=== PATIENT | male | born 1945 | race Caucasian/White ===

== ENCOUNTER → 2023-12-16 10:18 | Outpatient (REF) | payer MEDICARE, OTHER, SELFPAY ==
[2023-12-16 14:27] LABS: ALT (SGPT) < 10 U/L (0-50); AST (SGOT) 19 U/L (17-59); Albumin 3.8 g/dl (3.5-5.0); Alkaline Phosphatase 101 U/L (38-126); Blood Urea Nitrogen 16 mg/dl (9-20); Calcium 9.2 mg/dl (8.4-10.2); Carbon Dioxide 32 mmol/L (22-30); Chloride 101 mmol/L (98-107); Glucose 108 mg/dl (70-99); Potassium 4.2 mmol/L (3.5-5.1); Sodium 135 mmol/L (135-145); Total Bilirubin 0.8 mg/dl (0.2-1.3); Total Protein 6.6 g/dl (6.3-8.2); eGFR > 60.00
[2023-12-16 15:37] LABS: PSA, Total - Diagnostic < 0.06 ng/ml (0.0-4.0)
== END ==
LOC: HWLAB 10:18
PROVIDERS: ATTENDING PHYSICIAN Nurse Practitioner Adult Health; FAMILY PHYSICIAN Physician Assistant Medical
DX: C61 Malignant neoplasm of prostate (principal); C77.2 Secondary and unspecified malignant neoplasm of intra-abdominal lymph nodes
CPT/HCPCS: 36415; 80053; 84153

== ENCOUNTER 2024-01-19 13:18 | Emergency (ER) | payer MEDICARE, OTHER, SELFPAY ==
[2024-01-19 13:22] VITALS: BP 166/83
[2024-01-19 13:54] LABS: % Basophils 0.3 % (0-2); % Eosinophils 2.5 % (0-6); % Immature Granulocytes 0.2 % (0-0.5); % Lymphocytes 16.8 % (20.5-51.1); % Monocytes 6.7 % (1.7-9.3); % Neutrophils 73.5 % (42.2-75.2); Absolute Eosinophils 0.2 10^3/uL (0-0.7); Absolute Lymphocytes 1.1 10^3/uL (1.2-3.4); Absolute Monocytes 0.4 10^3/uL (0.1-0.6); Absolute Neutrophils 4.7 10^3/uL (1.4-6.5); Hematocrit 45.4 % (39.0-52.0); Hemoglobin 14.8 g/dL (13.0-18.0); Mean Corp Hgb Conc. 32.6 g/dL (33.0-37.0); Mean Corpuscular Volume 92.1 fL (80.0-94.0); Mean Platelet Volume 11.1 fL (7.4-10.4); Nucleated Red Blood Cells % 0 % (-); Platelet Count 181 10^3/uL (130-400); Red Blood Cell Count 4.93 10^6/uL (4.70-6.10); Red Cell Dist. Width 13.8 % (11.5-14.5); White Blood Cell Count 6.4 10^3/uL (4.8-10.8)
[2024-01-19 14:05] LABS: ALT (SGPT) 11 U/L (0-50); AST (SGOT) 20 U/L (17-59); Albumin 4.1 g/dl (3.5-5.0); Alkaline Phosphatase 99 U/L (38-126); Blood Urea Nitrogen 20 mg/dl (9-20); Calcium 9.3 mg/dl (8.4-10.2); Carbon Dioxide 30 mmol/L (22-30); Chloride 103 mmol/L (98-107); Glucose 154 mg/dl (70-99); Potassium 4.6 mmol/L (3.5-5.1); Sodium 139 mmol/L (135-145); Total Bilirubin 0.6 mg/dl (0.2-1.3); eGFR > 60.00
[2024-01-19 14:16] LABS: Troponin I 0.019 ng/ml
--- NOTE | 2024-01-19 14:39 | ED.GENMED ---
History of Present Illness
General
Chief Complaint: Fall
Source: patient and spouse
Exam Limitations: none
Time Seen by Provider: 01/19/24 14:25
Travel History
Have you had any contact with someone who has COVID-19?: No
Do you have any symptoms of coronavirus? Fever > 100 degrees, chills, cough, shortness of breath, sore throat, loss of taste or smell, muscle aches, or headache?: No
History of Present Illness
History of Present Illness:
See MDM
Past History
Past History
ED Past Medical History: Arrthythmia (Atrial fibrillation), Cancer (Prostate), CVA (Hemorrhagic), HTN, Hypercholesterolemia and Other (Chronic back pain/lumbar radiculopathy, polyneuropathy, gait disorder)
ED Past Surgical History: Other (Ventricular shunt, cataract, prostate, pacemaker and AICD)
Patient has exhibited threatening behavior?: No
PSI?: No
Social History
Tobacco: Non-smoker
Alcohol: None
Personal:
Living: with family
Employment: Employed
Family History
Family History: Other (Noncontributory)
Phy Exam
Physical Exam
Physical Exam:
See MDM
Course
Orders/Labs/Results
Orders:
Orders
01/19/24 13:25
Electrocardiogram (*1) Urgent
Reason for Study: Chest Pain
EKG- Treatment ONCE
01/19/24 13:26
CR Ribs-left 3 Vw W/pa Chest Urgent
Comment:
Reason For Exam: pain after fall
01/19/24 13:41
Complete Blood Count/With Diff Urgent
Comprehensive Metabolic Panel Urgent
Troponin I Urgent
01/19/24 14:34
Cephalexin Monohydrate [Keflex] 250 mg PO NOW STA
Ketorolac [Toradol] 30 mg IM NOW STA
01/19/24 15:48
Tramadol HCl [Ultram] 25 mg PO ONCE ONE
Abnormal Lab Results
01/19/24
13:41
MCHC 32.6 L g/dL
(33.0-37.0)
MPV 11.1 H fL
(7.4-10.4)
Absolute Lymphs (auto) 1.1 L 10^3/uL
(1.2-3.4)
Lymphocytes % 16.8 L %
(20.5-51.1)
Glucose 154 H mg/dl
(70-99)
01/19/24 13:41
01/19/24 13:41
Vital Signs
Initial and Last Documented VS:
Initial Vital Signs
Temp Pulse Resp BP Pulse Ox
98.4 F 98 18 166/83 97
01/19/24 13:22 01/19/24 13:22 01/19/24 13:22 01/19/24 13:22 01/19/24 13:22
Last Documented Vital Signs
Temp Pulse Resp BP Pulse Ox
98.4 F 93 13 166/83 95
01/19/24 13:22 01/19/24 15:00 01/19/24 15:00 01/19/24 13:22 01/19/24 14:45
MDM/Problems Addressed
Differential Diagnosis Includes:
HPI and MDM Narrative:
78-year-old male presenting with left lateral rib pain. Patient had a fall a week ago. He states the pain is now getting worse. He used to be on Eliquis that was discontinued when he was found to have intracranial hemorrhage. He has had dizzy
spells over the past several years for which he was diagnosed with vestibular neuritis. Patient states he is not currently feeling dizzy and the pain is improving. He was sent in to rule out rib fracture
On exam, he is well-appearing and nontoxic. We discussed blood work without significant abnormality. Will obtain rib x-rays. Will give dose of Toradol. Patient has NSAIDs listed as an allergy to avoid excessive use given his prior history of
intracranial hemorrhage. He is on a daily aspirin. Will give one-time dose of Toradol
also concerned about possible cellulitis. He scraped his leg on the car door recently.
Physical exam
General: Well appearing and non-toxic
HEENT: protecting airway
Neck: appears supple
CV: No evidence of cyanosis. Normal rate, irregular rhythm
Resp: No accessory muscle use. Lungs clear
Chest: Minor tenderness without erythema or crepitus to left lateral ribs
Abd: Non-distended
Extremities: No deformities
Neuro: alert
Psych: Normal affect
Skin: Skin avulsion to distal left anterior and posterior leg with minor cellulitic changes
Problems Addressed including Acute and Chronic Conditions affecting care:
1. Rib injury
Acuity: acute
Prognosis: stable
Details: will obtain x-ray to rule out fracture
2. Cellulitis
Acuity: acute
Prognosis: stable
Details: Will start keflex
Updates
X-ray consistent with 1 rib fracture. He remains well-appearing nontoxic. Discussed pain control and incentive spirometer. Both and feel comfortable going home
Differential Diagnosis (but not limited to): Rib fracture, rib contusion, cellulitis
Testing considered: CT head but it has been a week since the fall and he denies any headache or dizziness
Drug therapy (if applicable): OTC meds, please see d/c instruction regarding Rx drugs
Amount and/or Complexity of Data Reviewed
Clinical info obtained from: Patient
External data reviewed: N/A
Labs I independently reviewed (but not limited to): White blood cell count normal
Radiology: X-ray independently reviewed: Left lateral rib fracture
Pulse Ox: not hypoxic
EKG independently reviewed: A-fib, normal axis, no STEMI
Home Health Assistant: A-fib
Critical Care: N/A
Risk of Complication:
Social Determinants of health: Good social support
Discussed with other providers: N/A
Escalation of Care includes Admit/Obs: After being observed in the Emergency Department, pt stable for discharge.
Occasional wrong word or 'sound a like' substitutions may have occurred due to the inherent limitations of voice recognition software. Read the chart carefully and recognize, using context, where substitutions have occurred.
*Critical Care Note
Total Time (30-74mins, 75-104mins- exclusive of procedures): Not Applicable
ED Attending Note
-
Portions of this chart may have been created with voice recognition software.� Occasional wrong word or��sound alike� substitutions may have occurred due to the inherent limitations of voice recognition software.
Discharge Plan
Departure
Patient Disposition: Home (Routine Discharge)
Date of Disposition: 01/19/24
Time of Disposition: 15:49
Patient with high blood pressure during this ER visit?: Yes
Discharge Problem:
Fracture of rib, Cellulitis
Instructions: Cellulitis (Skin Infection), Adult ED, Rib Fracture
Prescriptions:
New
cephalexin 250 mg capsule
250 mg PO QID 7 Days Qty: 28 0RF
tramadol 50 mg tablet
25 mg PO BID PRN (Reason: pain) Qty: 10 0RF
No Action
carvedilol 6.25 MG tablet
6.25 mg PO BID
bimatoprost [Lumigan] 5 ML drops
2.5 ml BOTH EYES DAILY
gabapentin 300 MG capsule
300 mg PO DAILY
atorvastatin 40 MG tablet
40 mg PO QPM Qty: 30 0RF
apixaban [Eliquis] 5 MG tablet
5 mg PO BID Qty: 60 0RF
aspirin 81 MG tablet,delayed release (DR/EC)
81 mg PO DAILY Qty: 0 0RF
Rx Instructions:
If after talking to your Filling Hand, and you choose to take Eliquis, please stop taking Aspirin.
methylprednisolone [Medrol (Enrique)] 4 MG tablets,dose pack
4 tab PO . DIRECT Qty: 1 0RF
benzonatate 200 mg capsule
200 mg PO BID PRN (Reason: cough) Qty: 14 0RF
diltiazem HCl [Cardizem CD] 240 MG capsule,extended release 24hr
240 mg PO DAILY
Referrals:
Noy Aquino PA-C [Family Provider] -
Activity Restrictions/Additional Instructions:
Please return for any worsening symptoms.
You may return at any time if you have further concerns.
Please follow up with your doctor at the first available appointment, preferably this week.
Thank you for choosing [facility].
Interventions
Interventions:
*Risk Screen - Suicide Last Done: 01/19/24 13:22
*General Assessment Last Done: 01/19/24 13:22
*Neglect/Abuse Screening Last Done: 01/19/24 13:22
ED- Fall Risk Assessment Last Done: 01/19/24 15:20
*ED COVID-19 Vaccine History Last Done: 01/19/24 13:22
ED-Musculoskeletal Assessment Last Done: 01/19/24 15:20
ED- Neurological Assessment Last Done: 01/19/24 15:20
ED-Skin Assessment Last Done: 01/19/24 15:20
Discharge Date and Time
Print Language: BELIZEAN
[2024-01-19] MEDS: TORADOL 30 MG IM (14:51)
[2024-01-19] MEDS: KEFLEX 250 MG PO (14:51)
[2024-01-19] MEDS: ULTRAM 25 MG PO (16:02)
== END 2024-01-19 16:18 | disposition home or self-care (01) ==
LOC: EMR 13:18
PROVIDERS: EMERGENCY PHYSICIAN Student in an Organized Health Care Education/Training Program; FAMILY PHYSICIAN Physician Assistant Medical
DX: S22.32XA Fracture of one rib, left side, initial encounter for closed fracture (principal); L03.116 Cellulitis of left lower limb; S81.802A Unspecified open wound, left lower leg, initial encounter; W19.XXXA Unspecified fall, initial encounter; I48.91 Unspecified atrial fibrillation; E78.00 Pure hypercholesterolemia, unspecified; M54.16 Radiculopathy, lumbar region; G89.29 Other chronic pain; I10 Essential (primary) hypertension; G62.9 Polyneuropathy, unspecified; Z95.810 Presence of automatic (implantable) cardiac defibrillator; Z98.2 Presence of cerebrospinal fluid drainage device; Z79.82 Long term (current) use of aspirin; Z88.8 Allergy status to other drugs, medicaments and biological substances; Z88.6 Allergy status to analgesic agent; Z91.012 Allergy to eggs
CPT/HCPCS: 99284; 96372; 71101; 80053; 84484; 85025; 93005

== ENCOUNTER 2024-02-20 14:14 | Emergency (ER) | payer MEDICARE, OTHER, SELFPAY ==
[2024-02-20 14:21] VITALS: BP 136/89
[2024-02-20] MEDS: TYLENOL 650 MG PO (15:29)
[2024-02-20] MEDS: LIDOCAINE 4% PATCH 1 PATCH TOPICAL ×2 (15:29→18:20)
--- NOTE | 2024-02-20 15:29 | ED.GENMED ---
History of Present Illness
General
Chief Complaint: Musculo-Skeletal Complaint
Source: patient
Exam Limitations: none
Time Seen by Provider: 02/20/24 15:08
Nursing documentation reviewed up to this point in time: agreed with
History of Present Illness
History of Present Illness:
Patient is a 78-year-old male who presents to the ER complaining of left hip pain. He reports Wednesday he fell and landed on his left hip. He denies hitting his head. Since then he has had discomfort especially with walking is getting worse. He
is on aspirin but denies any other blood thinners presently. He Does lives at home with his .
He arrived via EMS.
Past History
Past History
ED Past Medical History: Arrthythmia (Atrial fibrillation), Cancer (Prostate), CVA (Hemorrhagic), HTN, Hypercholesterolemia and Other (Chronic back pain/lumbar radiculopathy, polyneuropathy, gait disorder)
ED Past Surgical History: Other (Ventricular shunt, cataract, prostate, pacemaker and AICD)
Patient has exhibited threatening behavior?: No
PSI?: No
Social History
Tobacco: Non-smoker
Alcohol: None
Personal:
Living: with family
Employment: Employed
Family History
Family History: Other (Noncontributory)
Review of Systems
Review of Systems
Allergies reviewed?: Yes
All Other Systems: ROS reviewed and negative except as documented in HPI and ROS
Constitutional: Reports no symptoms
Respiratory: Reports no symptoms
Cardiac: Reports no symptoms
ABD/GI: Reports no symptoms
: Reports no symptoms
Musculoskeletal: Reports other (left hip pain )
Skin: Reports no symptoms
Psychiatric: Reports no symptoms
Phy Exam
General Physical Exam
General Presentation: no apparent distress
General age: appears stated age
General Skin: warm and dry
General Habitus: elderly
General Mental: alert
General Hydration: appears well hydrated
Neurological Exam
Neurological Exam: alert and oriented x3
Musculoskeletal Exam
Musculoskeletal Exam: other (Patient with bilateral strong pulses to lower extremities patient with bruising to left lateral hip tender over this area , no discomfort with range of motion but mostly tender to the region of the left lateral thigh
over the area of ecchymosis, + bruising to left elbow full rom non tender )
Skin Exam
Skin Exam: normal color, warm/dry and other (no ecchymosis/abrasions to head )
Psychiatric Exam
Psychiatric Exam: normal mood/affect
Course
Orders/Labs/Results
Orders:
Orders
02/20/24 14:28
Hip, Left 2-3 Views [CR Hip - LT w/wo Pel 2-3 Vw*] Urgent
Comment:
Reason For Exam: fall
Include a pelvis x-ray?: Yes
02/20/24 15:19
CT Lower Ext W/o Iv Cont Lt Urgent
Comment:
Reason For Exam: trauma
Acetaminophen [Tylenol] 650 mg PO NOW STA
Lidocaine [Lidocaine 4% Patch] 1 patch TOPICAL NOW STA
02/20/24 18:13
Lidocaine [Lidocaine 4% Patch] 1 patch TOPICAL NOW STA
Vital Signs
Initial and Last Documented VS:
Initial Vital Signs
Temp Pulse Resp BP Pulse Ox
100 F 82 16 136/89 98
02/20/24 14:21 02/20/24 14:21 02/20/24 14:21 02/20/24 14:21 02/20/24 14:21
Last Documented Vital Signs
Temp Pulse Resp BP Pulse Ox
100 F 79 17 129/76 99
02/20/24 14:21 02/20/24 18:25 02/20/24 18:25 02/20/24 18:25 02/20/24 18:25
MDM/Problems Addressed
MDM/Problems Addressed:
Symptoms are consistent with contusion. Patient had a both hip x-ray and CAT scan of the lower extremity which was negative for fracture. On exam patient does have ecchymosis to left lateral hip and is very tender over this region there is no
obvious large swelling. He is able to bear weight has good range of motion and appears in no acute distress. He denies any recent fever chills temperature noted here however no evidence of infection on exam full range of motion to hip and no area
of redness.
Patient feels comfortable sitting up he was able to walk with assistance. He does have walker at home that he uses as well as a rollator. He felt comfortable going home. He does have prescription for tramadol to take at home but was given a
lidocaine patch here in the ER and reports that this has significantly helped. Discussed close outpatient follow-up. In addition there is a noted hernia on CAT scan however there is no obvious fullness to the area patient has no complaints of pain
and was not aware of hernia. I did however review that he may see a surgeon if needed and was given information on this.
*Critical Care Note
Total Time (30-74mins, 75-104mins- exclusive of procedures): Not Applicable
ED Attending Note
-
Portions of this chart may have been created with voice recognition software.� Occasional wrong word or��sound alike� substitutions may have occurred due to the inherent limitations of voice recognition software.
Discharge Plan
Departure
Patient Disposition: Home (Routine Discharge)
Date of Disposition: 02/20/24
Time of Disposition: 18:15
Patient with high blood pressure during this ER visit?: Yes
Condition: Fair
Covid-19: Not Applicable
Discharge Problem:
Contusion
Instructions: Contusion (DC)
Prescriptions:
New
lidocaine 5 % adhesive patch,medicated
1 patch topical DAILY Qty: 15 0RF
Rx Instructions:
remove after 12 hrs
No Action
carvedilol 6.25 MG tablet
6.25 mg PO BID
bimatoprost [Lumigan] 5 ML drops
2.5 ml BOTH EYES DAILY
gabapentin 300 MG capsule
300 mg PO DAILY
atorvastatin 40 MG tablet
40 mg PO QPM Qty: 30 0RF
apixaban [Eliquis] 5 MG tablet
5 mg PO BID Qty: 60 0RF
aspirin 81 MG tablet,delayed release (DR/EC)
81 mg PO DAILY Qty: 0 0RF
Rx Instructions:
If after talking to your Assembly Leader, and you choose to take Eliquis, please stop taking Aspirin.
methylprednisolone [Medrol (Enrique)] 4 MG tablets,dose pack
4 tab PO . DIRECT Qty: 1 0RF
benzonatate 200 mg capsule
200 mg PO BID PRN (Reason: cough) Qty: 14 0RF
cephalexin 250 mg capsule
250 mg PO QID 7 Days Qty: 28 0RF
tramadol 50 mg tablet
25 mg PO BID PRN (Reason: pain) Qty: 10 0RF
diltiazem HCl [Cardizem CD] 240 MG capsule,extended release 24hr
240 mg PO DAILY
Referrals:
Domo De Leon MD [Active] -
Noy Aquino PA-C [Family Provider] -
Activity Restrictions/Additional Instructions:
As discussed Tylenol for discomfort also you may apply lidocaine patches to affected area follow-up with your family doctor the next several days return if any worsening of symptoms. In addition on CAT scan there is a visualized left inguinal
hernia follow-up with surgery as discussed return if any worsening of symptoms including abdominal pain, pain in groin.
Interventions
Interventions:
*Risk Screen - Suicide Last Done: 02/20/24 14:21
*General Assessment Last Done: 02/20/24 14:21
*Neglect/Abuse Screening Last Done: 02/20/24 14:21
ED- Fall Risk Assessment Last Done: 02/20/24 15:23
*Nursing Disposition Last Done: 02/20/24 18:26
ED-Musculoskeletal Assessment Last Done: 02/20/24 15:20
Discharge Date and Time
Discharge Date/Time: 02/20/24 18:26
Print Language: GEORGIAN
[2024-02-20 18:25] VITALS: BP 129/76
== END 2024-02-20 18:26 | disposition home or self-care (01) ==
LOC: EMR 14:14
PROVIDERS: EMERGENCY PHYSICIAN Emergency Medicine; FAMILY PHYSICIAN Physician Assistant Medical
DX: S70.02XA Contusion of left hip, initial encounter (principal); S70.12XA Contusion of left thigh, initial encounter; S50.02XA Contusion of left elbow, initial encounter; I10 Essential (primary) hypertension; W19.XXXA Unspecified fall, initial encounter; Z79.82 Long term (current) use of aspirin
CPT/HCPCS: 99284; 73502; 73700

== ENCOUNTER → 2024-03-20 12:23 | Outpatient (REF) | payer MEDICARE, OTHER, SELFPAY ==
[2024-03-20 14:30] LABS: % Basophils 0.2 % (0-2); % Eosinophils 3.6 % (0-6); % Immature Granulocytes 0.2 % (0-0.5); % Lymphocytes 19.9 % (20.5-51.1); % Monocytes 8.6 % (1.7-9.3); % Neutrophils 67.5 % (42.2-75.2); Absolute Eosinophils 0.2 10^3/uL (0-0.7); Absolute Monocytes 0.5 10^3/uL (0.1-0.6); Absolute Neutrophils 3.5 10^3/uL (1.4-6.5); Hematocrit 44.1 % (39.0-52.0); Hemoglobin 14.8 g/dL (13.0-18.0); Mean Corp Hgb Conc. 33.6 g/dL (33.0-37.0); Mean Corpuscular Hgb 31.2 pg (27.0-31.0); Mean Platelet Volume 12.2 fL (7.4-10.4); Nucleated Red Blood Cells % 0 % (-); Platelet Count 154 10^3/uL (130-400); Red Blood Cell Count 4.74 10^6/uL (4.70-6.10); White Blood Cell Count 5.2 10^3/uL (4.8-10.8)
[2024-03-20 15:13] LABS: ALT (SGPT) < 10 U/L (0-50); AST (SGOT) 24 U/L (17-59); Albumin 4.1 g/dl (3.5-5.0); Alkaline Phosphatase 90 U/L (38-126); Blood Urea Nitrogen 22 mg/dl (9-20); Calcium 9.5 mg/dl (8.4-10.2); Carbon Dioxide 24 mmol/L (22-30); Chloride 105 mmol/L (98-107); Glucose 95 mg/dl (70-99); Potassium 5.1 mmol/L (3.5-5.1); Sodium 136 mmol/L (135-145); Total Bilirubin 0.7 mg/dl (0.2-1.3); Total Protein 6.8 g/dl (6.3-8.2); eGFR > 60.00
[2024-03-20 17:29] LABS: PSA, Total - Diagnostic < 0.06 ng/ml (0.0-4.0)
== END ==
LOC: REG 12:23
PROVIDERS: ATTENDING PHYSICIAN Nurse Practitioner Adult Health; FAMILY PHYSICIAN Physician Assistant Medical
DX: C61 Malignant neoplasm of prostate (principal)
CPT/HCPCS: 36415; 80053; 84153; 85025

== ENCOUNTER → 2024-05-23 13:21 | Outpatient (REF) | payer MEDICARE, OTHER, SELFPAY ==
[2024-05-23 14:25] LABS: % Basophils 0.5 % (0-2); % Eosinophils 4.8 % (0-6); % Immature Granulocytes 0.2 % (0-0.5); % Lymphocytes 23.5 % (20.5-51.1); % Monocytes 9.1 % (1.7-9.3); % Neutrophils 61.9 % (42.2-75.2); Absolute Eosinophils 0.2 10^3/uL (0-0.7); Absolute Monocytes 0.4 10^3/uL (0.1-0.6); Absolute Neutrophils 2.7 10^3/uL (1.4-6.5); Hematocrit 43.2 % (39.0-52.0); Hemoglobin 14.3 g/dL (13.0-18.0); Mean Corp Hgb Conc. 33.1 g/dL (33.0-37.0); Mean Corpuscular Hgb 31.6 pg (27.0-31.0); Mean Corpuscular Volume 95.6 fL (80.0-94.0); Mean Platelet Volume 11.3 fL (7.4-10.4); Nucleated Red Blood Cells % 0 % (-); Platelet Count 182 10^3/uL (130-400); Red Blood Cell Count 4.52 10^6/uL (4.70-6.10); Red Cell Dist. Width 13.2 % (11.5-14.5); White Blood Cell Count 4.4 10^3/uL (4.8-10.8)
[2024-05-23 14:39] LABS: ALT (SGPT) 14 U/L (0-50); AST (SGOT) 21 U/L (17-59); Albumin 4.2 g/dl (3.5-5.0); Alkaline Phosphatase 96 U/L (38-126); Blood Urea Nitrogen 16 mg/dl (9-20); Calcium 9.6 mg/dl (8.4-10.2); Carbon Dioxide 30 mmol/L (22-30); Chloride 101 mmol/L (98-107); Glucose 125 mg/dl (70-99); Potassium 4.9 mmol/L (3.5-5.1); Sodium 141 mmol/L (135-145); Total Bilirubin 0.8 mg/dl (0.2-1.3); Total Protein 6.8 g/dl (6.3-8.2); eGFR > 60.00
[2024-05-23 15:09] LABS: PSA, Total - Diagnostic < 0.06 ng/ml (0.0-4.0)
== END ==
LOC: REG 13:21
PROVIDERS: ATTENDING PHYSICIAN Nurse Practitioner Adult Health; FAMILY PHYSICIAN Physician Assistant Medical
DX: C61 Malignant neoplasm of prostate (principal); C77.2 Secondary and unspecified malignant neoplasm of intra-abdominal lymph nodes
CPT/HCPCS: 80053; 84153; 85025

== ENCOUNTER → 2024-09-18 13:44 | Outpatient (REF) | payer MEDICARE, OTHER, SELFPAY ==
[2024-09-18 14:13] LABS: % Basophils 0.5 % (0-2); % Eosinophils 6.2 % (0-6); % Lymphocytes 27.3 % (20.5-51.1); % Monocytes 8.6 % (1.7-9.3); % Neutrophils 57.4 % (42.2-75.2); Absolute Eosinophils 0.2 10^3/uL (0-0.7); Absolute Monocytes 0.3 10^3/uL (0.1-0.6); Absolute Neutrophils 2.1 10^3/uL (1.4-6.5); Hemoglobin 14.1 g/dL (13.0-18.0); Mean Corp Hgb Conc. 33.6 g/dL (33.0-37.0); Mean Corpuscular Hgb 31.6 pg (27.0-31.0); Mean Corpuscular Volume 94.2 fL (80.0-94.0); Mean Platelet Volume 11.7 fL (7.4-10.4); Nucleated Red Blood Cells % 0 % (-); Platelet Count 149 10^3/uL (130-400); Red Blood Cell Count 4.46 10^6/uL (4.70-6.10); White Blood Cell Count 3.7 10^3/uL (4.8-10.8)
[2024-09-18 14:37] LABS: ALT (SGPT) < 10 U/L (0-50); AST (SGOT) 17 U/L (17-59); Albumin 3.8 g/dl (3.5-5.0); Alkaline Phosphatase 88 U/L (38-126); Carbon Dioxide 29 mmol/L (22-30); Glucose 109 mg/dl (70-99); eGFR > 60.00
[2024-09-18 14:48] LABS: Blood Urea Nitrogen 20 mg/dl (9-20); Chloride 101 mmol/L (98-107); Potassium 4.5 mmol/L (3.5-5.1); Sodium 136 mmol/L (135-145); Total Bilirubin 0.8 mg/dl (0.2-1.3); Total Protein 6.5 g/dl (6.3-8.2)
[2024-09-18 15:06] LABS: PSA, Total - Diagnostic < 0.06 ng/ml (0.0-4.0)
== END ==
LOC: REG 13:44
PROVIDERS: ATTENDING PHYSICIAN Internal Medicine
DX: C61 Malignant neoplasm of prostate (principal)
CPT/HCPCS: 36415; 80053; 84153; 85025

== ENCOUNTER 2024-10-07 12:20 | Emergency (ER) | payer MEDICARE, OTHER, SELFPAY ==
[2024-10-07] VITALS (7 sets, daily range): BP systolic 156–174; BP diastolic 84–118; BMI 28.6
[2024-10-07 13:03] LABS: % Basophils 0.5 % (0-2); % Eosinophils 3.2 % (0-6); % Immature Granulocytes 0.2 % (0-0.5); % Lymphocytes 20.5 % (20.5-51.1); % Monocytes 7.3 % (1.7-9.3); % Neutrophils 68.3 % (42.2-75.2); Absolute Eosinophils 0.1 10^3/uL (0-0.7); Absolute Lymphocytes 0.9 10^3/uL (1.2-3.4); Absolute Monocytes 0.3 10^3/uL (0.1-0.6); Hematocrit 43.3 % (39.0-52.0); Hemoglobin 14.5 g/dL (13.0-18.0); Mean Corp Hgb Conc. 33.5 g/dL (33.0-37.0); Mean Corpuscular Hgb 31.7 pg (27.0-31.0); Mean Corpuscular Volume 94.5 fL (80.0-94.0); Nucleated Red Blood Cells % 0 % (-); Platelet Count 148 10^3/uL (130-400); Red Blood Cell Count 4.58 10^6/uL (4.70-6.10); Red Cell Dist. Width 13.3 % (11.5-14.5); White Blood Cell Count 4.4 10^3/uL (4.8-10.8)
[2024-10-07 13:20] LABS: ALT (SGPT) < 10 U/L (0-50); AST (SGOT) 18 U/L (17-59); Albumin 3.7 g/dl (3.5-5.0); Alkaline Phosphatase 93 U/L (38-126); Blood Urea Nitrogen 15 mg/dl (9-20); Calcium 9.1 mg/dl (8.4-10.2); Carbon Dioxide 26 mmol/L (22-30); Chloride 102 mmol/L (98-107); Glucose 136 mg/dl (70-99); Potassium 4.8 mmol/L (3.5-5.1); Sodium 135 mmol/L (135-145); Total Bilirubin 1.2 mg/dl (0.2-1.3); Total Protein 6.4 g/dl (6.3-8.2); eGFR > 60.00
[2024-10-07 13:22] LABS: COVID-19 Antigen Negative (Negative)
--- NOTE | 2024-10-07 15:01 | EDRN ---
Pt states he arrives for shortness of breath, was diagnosed w/ a hernia (says in his R saira) and unable to move his bowels (last BM 3 days ago). Pt unable to go and took miralax and then had diarrhea then took immodium to stop the diarrhea and now
can't go. Pt has sl abd pain in mid abd (12/30). Pt states he has intermittent SOB, all of a sudden gets SOB then it slowly goes away.
--- NOTE | 2024-10-07 15:44 | EDRN ---
Dr. Maldonado in to see pt.
--- NOTE | 2024-10-07 15:54 | ED.GENMED ---
History of Present Illness
General
Chief Complaint: Breathing Problem
Time Seen by Provider: 10/07/24 15:26
History of Present Illness
History of Present Illness:
Patient is a 79-year-old female with history of A-fib on anticoagulation, CHF s/p aicd placement with mildly reduced EF, pacemaker, prior prostate cancer in remission presenting to the emergency department with abdominal pain and difficulty
breathing. Patient states that he has a known hernia. For the past few days has been having worsening abdominal as well as difficulty with his bowel movements. His last normal bowel movement was 2 days ago. He had a 20 pound weight loss in the
past few weeks. He does follow with [facility] and has been having normal PET scans. His cancer is in remission. He also notes that intermittently he has been short of breath. It is sometimes when he is laying flat. Is not
exertional. No chest pain. No palpitations. No URI symptoms. No sick contacts. No triggers. He is not on a water pill for his CHF. Per chart review patient does have a mildly reduced EF. His last echo was in 2022.
Past History
Past History
ED Past Medical History: Arrthythmia (Atrial fibrillation), Cancer (Prostate), CVA (Hemorrhagic), HTN, Hypercholesterolemia and Other (Chronic back pain/lumbar radiculopathy, polyneuropathy, gait disorder)
ED Past Surgical History: Other (Ventricular shunt, cataract, prostate, pacemaker and AICD)
Patient has exhibited threatening behavior?: No
PSI?: No
Social History
Tobacco: Non-smoker
Alcohol: None
Personal:
Living: with family
Employment: Employed
Family History
Family History: Other (Noncontributory)
Phy Exam
Physical Exam
Physical Exam:
GENERAL: in no acute distress
HEENT: normocephalic, extraocular movements intact, moist oral mucosa
NECK: normal inspection
RESPIRATORY: no respiratory distress, clear to auscultation bilaterally, fine crackles at the base
CARDIOVASCULAR: regular rate and rhythm
ABDOMEN/: soft, non-distended, left lower quadrant tenderness to palpation , no rebound or guarding, no palpable hernia
EXTREMITIES: non-tender, mild edema bilaterally
NEUROLOGIC: awake and alert, moves all extremities
SKIN: warm
Scores
Heart Failure Risk
Heart Failure Risk Score: Not Applicable
Course
Orders/Labs/Results
Orders:
Orders
10/07/24 12:37
EKG [Electrocardiogram (*1)] Urgent
Reason for Study: Shortness of Breath
EKG- Treatment ONCE
10/07/24 12:54
CBC/With Diff [Complete Blood Count/With Diff] Urgent
COVID-19 Antigen Urgent
Source: Nasal Swab
Comprehensive Metabolic Panel Urgent
TSH Reflex To Free T4 Urgent
Comment: ADDON
Influenza A+B Rapid Molecular Urgent
MIRIAM Source: Nasal Swab
Specimen Description:
10/07/24 15:26
CT Abd/pelvis W Iv Cont Urgent
Comment:
Reason For Exam: ab pain hernia
10/07/24 15:45
0.9% Sodium Chloride 500 ml [Nss] 500 ml IV BOLUS
10/07/24 15:53
Add On- LAB Urgent
Tests Added?: thyroid with reflex
10/07/24 16:59
Add On- LAB Urgent
Tests Added?: bnp
10/07/24 17:44
NT-proBNP Urgent
Abnormal Lab Results
10/07/24
12:54
WBC 4.4 L 10^3/uL
(4.8-10.8)
RBC 4.58 L 10^6/uL
(4.70-6.10)
MCV 94.5 H fL
(80.0-94.0)
MCH 31.7 H pg
(27.0-31.0)
MPV 12.0 H fL
(7.4-10.4)
Absolute Lymphs (auto) 0.9 L 10^3/uL
(1.2-3.4)
Glucose 136 H mg/dl
(70-99)
10/07/24 12:54
10/07/24 12:54
Vital Signs
Initial and Last Documented VS:
Initial Vital Signs
Temp Pulse Resp BP Pulse Ox
98.2 F 97 16 166/85 98
10/07/24 12:34 10/07/24 12:34 10/07/24 12:34 10/07/24 12:34 10/07/24 12:34
Last Documented Vital Signs
Temp Pulse Resp BP Pulse Ox
98.2 F 105 24 156/118 92
10/07/24 12:34 10/07/24 18:00 10/07/24 18:00 10/07/24 18:00 10/07/24 17:45
MDM/Problems Addressed
Differential Diagnosis Includes:
Patient is a 79-year-old man presenting to the emergency department with abdominal pain difficulty with the bowel movements and occasional shortness of breath. Vitals are notable for heart rate in the 90s to low 100s. Exam does show left lower
quadrant tenderness as well as fine crackles at the bases. Differential is broad but consists of obstruction versus malignancy versus anemia or viral illness. Shortness of breath could be related to pulmonary edema/heart failure exacerbation.
Could be metabolic derangement. Considered PE however the shortness of breath is intermittent and patient is not hypoxic or hypotensive. Will check blood work and obtain CT scan.
*Critical Care Note
Total Time (30-74mins, 75-104mins- exclusive of procedures): Not Applicable
Update Note
Update Note:
CT scan per my interpretation does show bilateral pleural effusion. Patient does have history of CHF with a reduced EF. He is not currently on a diuretic. At bedside patient was normal oxygen upon ambulation and is not overtly short of breath or
tachypneic. We did discuss possible admission for diuresis however patient is adamant about going home as his symptoms are very mild. I did add on BNP however patient was eager to be discharged with the daughter who needs to go to work so
unfortunately we were unable to obtain the BNP as there was not the right tube for in lab. Otherwise the official read did show a stable left inguinal hernia without obstruction as well as constipation. We did discuss bowel regimen. Per the
official read there is also bibasilar opacity. Patient does not have any infectious signs or symptoms with a normal white count and he is afebrile so we will hold off on antibiotics. Will discharge patient with rapid heart failure follow-up.
ED Attending Note
-
Portions of this chart may have been created with voice recognition software.� Occasional wrong word or��sound alike� substitutions may have occurred due to the inherent limitations of voice recognition software.
Discharge Plan
Departure
Patient Disposition: Home (Routine Discharge)
Date of Disposition: 10/07/24
Time of Disposition: 18:03
Patient with high blood pressure during this ER visit?: Yes
Discharge Problem:
Pulmonary edema
Instructions: *CBC Heart Failure Instructions
Prescriptions:
New
furosemide [Lasix] 20 mg tablet
20 mg PO DAILY Qty: 7 0RF
No Action
carvedilol 6.25 MG tablet
6.25 mg PO BID
bimatoprost [Lumigan] 5 ML drops
2.5 ml BOTH EYES DAILY
gabapentin 300 MG capsule
300 mg PO DAILY
atorvastatin 40 MG tablet
40 mg PO QPM Qty: 30 0RF
apixaban [Eliquis] 5 MG tablet
5 mg PO BID Qty: 60 0RF
aspirin 81 MG tablet,delayed release (DR/EC)
81 mg PO DAILY Qty: 0 0RF
Rx Instructions:
If after talking to your Panel Builder, and you choose to take Eliquis, please stop taking Aspirin.
methylprednisolone [Medrol (Enrique)] 4 MG tablets,dose pack
4 tab PO . DIRECT Qty: 1 0RF
benzonatate 200 mg capsule
200 mg PO BID PRN (Reason: cough) Qty: 14 0RF
cephalexin 250 mg capsule
250 mg PO QID 7 Days Qty: 28 0RF
tramadol 50 mg tablet
25 mg PO BID PRN (Reason: pain) Qty: 10 0RF
lidocaine 5 % adhesive patch,medicated
1 patch topical DAILY Qty: 15 0RF
Rx Instructions:
remove after 12 hrs
diltiazem HCl [Cardizem CD] 240 MG capsule,extended release 24hr
240 mg PO DAILY
Referrals:
Noy Aquino PA-C [Family Provider] -
Activity Restrictions/Additional Instructions:
You were seen in the Emergency Department today for shortness of breath as well as constipation. Please start using MiraLAX as discussed. I did prescribe you a short course of Lasix which is a water pill. Your bowling alley mechanic will call you to
schedule an appointment.
We would like for you to follow up with your primary care physician for further evaluation. If you experience fever, worsening of your symptoms, or develop any other new or concerning symptoms, please return to the Emergency Department immediately.
Please see the attached sheet for additional information.
Interventions
Interventions:
*Risk Screen - Suicide Last Done: 10/07/24 12:34
*General Assessment Last Done: 10/07/24 15:05
*Neglect/Abuse Screening Last Done: 10/07/24 12:34
ED- Fall Risk Assessment Last Done: 10/07/24 15:05
*ED COVID-19 Vaccine History Last Done: 10/07/24 15:05
ED- Cardiac Assessment Last Done: 10/07/24 15:12
ED- Pulmonary Assessment Last Done: 10/07/24 15:12
Discharge Date and Time
Print Language: OCCITAN
[2024-10-07] MEDS: NSS 500 IV (16:08)
--- NOTE | 2024-10-07 16:33 | EDRN ---
Pt using urinal at this and then will go to CT scan.
--- NOTE | 2024-10-07 16:34 | EDRN ---
Dr. Gonzalez in room w/ pt and daughter at this time. Unable to get IV access but was able to obtain ordered blood for labs. IV VAT RN was paged at this time for IV access.
--- NOTE | 2024-10-07 17:20 | EDRN ---
Dr. Maldonado stopped IVF infusion as pt showed pleural effusions on his CT scan at this time.
[2024-10-07 17:23] LABS: TSH Reflex To Free T4 3.28 uIU/ml (0.47-4.68)
--- NOTE | 2024-10-07 18:06 | EDRN ---
Dr. Maldonado is discharging pt to follow up w/ cardiology. Pt is calling his daughter to return to give him a ride home.
== END 2024-10-07 18:43 | disposition home or self-care (01) ==
LOC: EMR 12:20
PROVIDERS: Emergency Medicine; EMERGENCY PHYSICIAN Student in an Organized Health Care Education/Training Program; FAMILY PHYSICIAN Physician Assistant Medical
DX: J81.1 Chronic pulmonary edema (principal); I50.20 Unspecified systolic (congestive) heart failure; I11.0 Hypertensive heart disease with heart failure; I48.91 Unspecified atrial fibrillation; Z79.01 Long term (current) use of anticoagulants; Z11.52 Encounter for screening for COVID-19
CPT/HCPCS: 99285; 96360; 74177; 80053; 84443; 85025; 87502; 87811; 93005; Q9967

== ENCOUNTER → 2024-10-16 13:18 | Outpatient (REF) | payer MEDICARE, OTHER, SELFPAY ==
[2024-10-16 16:05] LABS: % Basophils 0.9 % (0-2); % Eosinophils 5.1 % (0-6); % Monocytes 8.9 % (1.7-9.3); % Neutrophils 57.1 % (42.2-75.2); Absolute Eosinophils 0.2 10^3/uL (0-0.7); Absolute Monocytes 0.3 10^3/uL (0.1-0.6); Hematocrit 43.3 % (39.0-52.0); Hemoglobin 14.1 g/dL (13.0-18.0); Mean Corp Hgb Conc. 32.6 g/dL (33.0-37.0); Mean Corpuscular Hgb 31.4 pg (27.0-31.0); Mean Corpuscular Volume 96.4 fL (80.0-94.0); Mean Platelet Volume 12.3 fL (7.4-10.4); Nucleated Red Blood Cells % 0 % (-); Platelet Count 149 10^3/uL (130-400); Red Blood Cell Count 4.49 10^6/uL (4.70-6.10); Red Cell Dist. Width 13.2 % (11.5-14.5); White Blood Cell Count 3.5 10^3/uL (4.8-10.8)
[2024-10-16 16:25] LABS: ALT (SGPT) < 10 U/L (0-50); AST (SGOT) 18 U/L (17-59); Albumin 3.9 g/dl (3.5-5.0); Alkaline Phosphatase 99 U/L (38-126); Blood Urea Nitrogen 14 mg/dl (9-20); Calcium 9.1 mg/dl (8.4-10.2); Carbon Dioxide 26 mmol/L (22-30); Chloride 99 mmol/L (98-107); Glucose 100 mg/dl (70-99); Potassium 4.3 mmol/L (3.5-5.1); Sodium 134 mmol/L (135-145); Total Bilirubin 1.5 mg/dl (0.2-1.3); Total Protein 6.4 g/dl (6.3-8.2); eGFR > 60.00
[2024-10-16 16:54] LABS: PSA, Total - Diagnostic < 0.06 ng/ml (0.0-4.0); TSH Reflex To Free T4 5.95 uIU/ml (0.47-4.68)
[2024-10-16 17:25] LABS: Free T4 1.54 ng/dl (0.78-2.19)
[2024-10-17 09:14] LABS: Glycohemoglobin (HgbA1c) 6.2 % (4.0-5.6)
== END ==
LOC: REG 13:18
PROVIDERS: ATTENDING PHYSICIAN Nurse Practitioner Family; FAMILY PHYSICIAN Nurse Practitioner Adult Health
DX: E11.9 Type 2 diabetes mellitus without complications (principal); I10 Essential (primary) hypertension; I50.22 Chronic systolic (congestive) heart failure; C61 Malignant neoplasm of prostate
CPT/HCPCS: 36415; 80053; 83036; 84153; 84439; 84443; 85025

== ENCOUNTER → 2024-11-13 13:13 | Outpatient (REF) | payer MEDICARE, OTHER, SELFPAY ==
[2024-11-13 14:31] LABS: ALT (SGPT) < 10 U/L (0-50); AST (SGOT) 17 U/L (17-59); Albumin 3.8 g/dl (3.5-5.0); Alkaline Phosphatase 88 U/L (38-126); Blood Urea Nitrogen 17 mg/dl (9-20); Calcium 9.2 mg/dl (8.4-10.2); Carbon Dioxide 26 mmol/L (22-30); Chloride 103 mmol/L (98-107); Glucose 105 mg/dl (70-99); HDL Cholesterol 49 mg/dl; LDL Cholesterol, Calculated 116 mg/dl; Potassium 4.4 mmol/L (3.5-5.1); Sodium 138 mmol/L (135-145); Total Bilirubin 1.1 mg/dl (0.2-1.3); Total Cholesterol 184 mg/dl (50-199); Total Protein 6.2 g/dl (6.3-8.2); Triglyceride 98 mg/dl (10-149); Very Low Density Lipoprotein 19 mg/dl (0-30); eGFR > 60.00
[2024-11-13 14:58] LABS: TSH Reflex To Free T4 4.52 uIU/ml (0.47-4.68)
== END ==
LOC: REG 13:13
PROVIDERS: ATTENDING PHYSICIAN Nurse Practitioner Family
DX: I10 Essential (primary) hypertension (principal); I50.22 Chronic systolic (congestive) heart failure; E11.9 Type 2 diabetes mellitus without complications
CPT/HCPCS: 36415; 80053; 80061; 84443

== ENCOUNTER → 2024-11-21 13:38 | Outpatient (REF) | payer MEDICARE, OTHER, SELFPAY ==
[2024-11-21 15:00] LABS: Albumin 3.9 g/dl (3.5-5.0); Blood Urea Nitrogen 16 mg/dl (9-20); Calcium 9.1 mg/dl (8.4-10.2); Carbon Dioxide 25 mmol/L (22-30); Chloride 104 mmol/L (98-107); Glucose 110 mg/dl (70-99); Phosphorus 3.7 mg/dl (2.5-4.5); Potassium 4.1 mmol/L (3.5-5.1); Sodium 137 mmol/L (135-145); eGFR > 60.00
== END ==
LOC: REG 13:38
PROVIDERS: ATTENDING PHYSICIAN Obstetrics & Gynecology; FAMILY PHYSICIAN Nurse Practitioner Family
DX: I50.22 Chronic systolic (congestive) heart failure (principal); I10 Essential (primary) hypertension
CPT/HCPCS: 36415; 80069

== ENCOUNTER → 2024-11-30 13:31 | Outpatient (REF) | payer MEDICARE, OTHER, SELFPAY ==
[2024-11-30 14:34] LABS: % Basophils 0.6 % (0-2); % Eosinophils 6.3 % (0-6); % Immature Granulocytes 0.3 % (0-0.5); % Lymphocytes 28.5 % (20.5-51.1); % Monocytes 8.5 % (1.7-9.3); % Neutrophils 55.8 % (42.2-75.2); Absolute Eosinophils 0.2 10^3/uL (0-0.7); Absolute Lymphocytes 0.9 10^3/uL (1.2-3.4); Absolute Monocytes 0.3 10^3/uL (0.1-0.6); Absolute Neutrophils 1.8 10^3/uL (1.4-6.5); Hematocrit 41.3 % (39.0-52.0); Hemoglobin 13.8 g/dL (13.0-18.0); Mean Corp Hgb Conc. 33.4 g/dL (33.0-37.0); Mean Corpuscular Hgb 31.9 pg (27.0-31.0); Mean Corpuscular Volume 95.6 fL (80.0-94.0); Mean Platelet Volume 12.1 fL (7.4-10.4); Nucleated Red Blood Cells % 0 % (-); Platelet Count 136 10^3/uL (130-400); Red Blood Cell Count 4.32 10^6/uL (4.70-6.10); Red Cell Dist. Width 13.2 % (11.5-14.5); White Blood Cell Count 3.2 10^3/uL (4.8-10.8)
[2024-11-30 15:07] LABS: ALT (SGPT) < 10 U/L (0-50); AST (SGOT) 18 U/L (17-59); Alkaline Phosphatase 95 U/L (38-126); Blood Urea Nitrogen 19 mg/dl (9-20); Calcium 9.2 mg/dl (8.4-10.2); Carbon Dioxide 27 mmol/L (22-30); Chloride 104 mmol/L (98-107); Glucose 111 mg/dl (70-99); Potassium 4.9 mmol/L (3.5-5.1); Sodium 137 mmol/L (135-145); Total Protein 6.5 g/dl (6.3-8.2); eGFR > 60.00
[2024-11-30 15:39] LABS: PSA, Total - Diagnostic < 0.06 ng/ml (0.0-4.0)
== END ==
LOC: REG 13:31
PROVIDERS: ATTENDING PHYSICIAN Nurse Practitioner Adult Health; FAMILY PHYSICIAN Nurse Practitioner Family
DX: C61 Malignant neoplasm of prostate (principal)
CPT/HCPCS: 36415; 80053; 84153; 85025

== ENCOUNTER → 2025-01-16 13:20 | Outpatient (REF) | payer MEDICARE, OTHER, SELFPAY ==
[2025-01-16 14:58] LABS: Blood Urea Nitrogen 15 mg/dl (9-20); Calcium 9.2 mg/dl (8.4-10.2); Carbon Dioxide 28 mmol/L (22-30); Chloride 103 mmol/L (98-107); Glucose 111 mg/dl (70-99); Potassium 4.6 mmol/L (3.5-5.1); Sodium 137 mmol/L (135-145); eGFR > 60.00
== END ==
LOC: REG 13:20
PROVIDERS: ATTENDING PHYSICIAN Nurse Practitioner; FAMILY PHYSICIAN Nurse Practitioner Family
DX: I50.22 Chronic systolic (congestive) heart failure (principal)
CPT/HCPCS: 36415; 80048

== ENCOUNTER → 2025-02-21 13:51 | Outpatient (REF) | payer MEDICARE, OTHER, SELFPAY ==
[2025-02-21 15:04] LABS: Hematocrit 39.3 % (39.0-52.0); Hemoglobin 13.3 g/dL (13.0-18.0); Mean Corp Hgb Conc. 33.8 g/dL (33.0-37.0); Mean Corpuscular Volume 90.6 fL (80.0-94.0); Nucleated Red Blood Cells % 0 % (-); Platelet Count 134 10^3/uL (130-400); Red Cell Dist. Width 13.9 % (11.5-14.5)
[2025-02-21 15:08] LABS: ALT (SGPT) 10 U/L (0-50); AST (SGOT) 17 U/L (17-59); Albumin 3.7 g/dl (3.5-5.0); Alkaline Phosphatase 83 U/L (38-126); Blood Urea Nitrogen 16 mg/dl (9-20); Calcium 8.9 mg/dl (8.4-10.2); Carbon Dioxide 23 mmol/L (22-30); Chloride 103 mmol/L (98-107); Glucose 113 mg/dl (70-99); HDL Cholesterol 42 mg/dl; LDL Cholesterol, Calculated 122 mg/dl; Potassium 4.3 mmol/L (3.5-5.1); Sodium 133 mmol/L (135-145); Total Protein 6.3 g/dl (6.3-8.2); Very Low Density Lipoprotein 16 mg/dl (0-30); eGFR > 60.00
[2025-02-21 15:32] LABS: PSA, Total - Diagnostic < 0.06 ng/ml (0.0-4.0)
[2025-02-22 07:55] LABS: Glycohemoglobin (HgbA1c) 6.3 % (4.0-5.6)
== END ==
LOC: REG 13:51
PROVIDERS: ATTENDING PHYSICIAN Nurse Practitioner Adult Health; FAMILY PHYSICIAN Nurse Practitioner Family
DX: C61 Malignant neoplasm of prostate (principal); E11.9 Type 2 diabetes mellitus without complications; R73.01 Impaired fasting glucose; I63.9 Cerebral infarction, unspecified
CPT/HCPCS: 36415; 80053; 80061; 83036; 84153; 84439; 84443; 85025

== ENCOUNTER 2025-03-07 20:14 | Inpatient (IN) | payer MEDICARE, OTHER, SELFPAY ==
[2025-03-07] VITALS (15 sets, daily range): BP systolic 100–145; BP diastolic 63–106; BMI 29.5
--- NOTE | 2025-03-07 12:50 | ED.GENMED ---
History of Present Illness
General
Chief Complaint: Chest Pain
Source: patient and family
Exam Limitations: none
Time Seen by Provider: 03/07/25 12:49
History of Present Illness
History of Present Illness:
79-year-old male 2 episodes of chest pain dull in nature left upper chest. Some shortness of breath with this. First episode was at rest at 9 PM last night. Stayed until he went to bed. However when he woke up in the middle the night he did not
have the discomfort. This morning he woke up without the discomfort but recurred around 7 AM and lasted about 30 minutes. Currently feels essentially fine although slightly off. Cannot be more specific than that. However currently denies chest
pain shortness of breath pleuritic pain abdominal pain leg pain etc. Patient is on Eliquis he thinks for an intracardiac thrombus. However he has not taken it in the last 6 months. Restarted it 2 weeks ago. Since then he is also had insomnia.
Past History
Past History
ED Past Medical History: Arrthythmia (Atrial fibrillation), Cancer (Prostate), CVA (Hemorrhagic), HTN, Hypercholesterolemia and Other (Chronic back pain/lumbar radiculopathy, polyneuropathy, gait disorder)
ED Past Surgical History: Other (Ventricular shunt, cataract, prostate, pacemaker and AICD)
Patient has exhibited threatening behavior?: No
PSI?: No
Social History
Tobacco: Non-smoker
Alcohol: None
Personal:
Living: with family
Employment: Employed
Family History
Family History: Other (Noncontributory)
Review of Systems
Review of Systems
All Other Systems: Not applicable
ABD/GI: Reports no symptoms
Phy Exam
Physical Exam
Physical Exam:
GENERAL: Alert and oriented in no apparent distress
EYE: Orbits normal.
NECK: Supple
CARDIAC: Irregular irregular. Pacemaker left upper chest wall
LUNGS: Clear breath sounds,normal
ABDOMEN: Soft, without focal tenderness or distention
NEUROLOGICAL: Alert and oriented , grossly non-focal
SKIN: Warm and dry, no rash or lesion, no discoloration, skin intact.
MUSCULOSKELETAL: Chronic appearing lower extremity edema with chronic skin changes.
PSYCH: Normal and appropriate interaction.
Scores
Heart Score for Chest Pain Patients
STEMI patient?: No
History: Moderately Suspicious
ECG: Nonspecific Repolarization
Age: >/= 65 years
Risk Factors: >/= 3 Risk Factors or History of CAD
Troponin: </= Normal Limit
Heart Score for Chest Pain Patients: 6
Heart Score Risk: 20.3% MACE over next 6 weeks
Course
Orders/Labs/Results
Orders:
Orders
03/07/25
Definity Contrast 2ml Routine
Reason for Study: R/O APICAL CLOT
03/07/25 12:03
EKG [Electrocardiogram (*1)] Urgent
Reason for Study: Chest Pain
EKG- Treatment ONCE
03/07/25 12:44
BNP [NT-proBNP] Urgent
Complete Blood Count/With Diff Urgent
Comprehensive Metabolic Panel Urgent
Prothrombin Time Urgent
Troponin I Urgent
03/07/25 13:04
CXR2 [CR Chest - 2 Views ] Urgent
Comment:
Reason For Exam: cp
03/07/25 14:29
Echo 2D MMode Color/Doppler Urgent
Reason for Study: Intermittent chest pain.
03/07/25 16:03
Aspirin 325 mg PO NOW STA
03/07/25 16:20
CARDIOLOGY CONSULT Routine
Consulting Provider: Jonathan Kramer
Was physician already notified: Yes
Reason for consult: Intermittent CP. Severely low ejection fraction
03/08/25 Breakfast
NPO
Allow oral meds: Yes
Allow clear liquids: No
03/08/25 08:00
Aspirin Chewable [Low Strength Aspirin] 81 mg PO DAILY
Abnormal Lab Results
03/07/25
12:44
WBC 3.3 L 10^3/uL
(4.8-10.8)
RBC 4.53 L 10^6/uL
(4.70-6.10)
MCHC 32.9 L g/dL
(33.0-37.0)
Plt Count 126 L 10^3/uL
(130-400)
MPV 11.9 H fL
(7.4-10.4)
Monocytes % 10.1 H %
(1.7-9.3)
PT 19.6 H Sec
(11.4-14.6)
Sodium 132 L mmol/L
(135-145)
Glucose 121 H mg/dl
(70-99)
Total Protein 6.1 L g/dl
(6.3-8.2)
03/07/25 12:44
03/07/25 12:44
Vital Signs
Initial and Last Documented VS:
Initial Vital Signs
Temp Pulse Resp BP Pulse Ox
98.3 F 79 16 119/77 96
03/07/25 12:09 03/07/25 12:09 03/07/25 12:09 03/07/25 12:09 03/07/25 12:09
Last Documented Vital Signs
Temp Pulse Resp BP Pulse Ox
98.0 F 83 20 145/81 94
03/07/25 16:18 03/07/25 16:18 03/07/25 16:18 03/07/25 16:18 03/07/25 16:18
MDM/Problems Addressed
Differential Diagnosis Includes:
Patient with intermittent chest pain. None currently. Currently stable. Cardiac workup in progress. Has a known slightly dilated aortic root by echo however not describing dissection or aneurysm like symptoms. No upper back pain. Currently
asymptomatic. We will get a chest x-ray as a screen. Fully understanding this is very nonspecific. He has not been faithful with his Eliquis until restarting it 2 weeks ago. Cardiology contacted for their opinion.
*Pulse Oximetry
SaO2: 96
Oxygen Mode of Delivery: Room air
Patient hypoxic: no
*EKG
Interpreted by ED Provider?: Yes
Interpretation: abnormal
Comparison EKG: changes noted
Rate: normal
Rhythm: a-fib
Holliday: left axis deviation
Interval: normal interval
QRS Pattern: normal QRS and left vent hypertrophy
Ischemia: non-specific ST changes
*Critical Care Note
Total Time (30-74mins, 75-104mins- exclusive of procedures): 35
Data Reviewed
Review of Other/Old Records Reveals: Labs, Records and Testing (Echocardiogram)
ED Attending Note
-
Portions of this chart may have been created with voice recognition software.� Occasional wrong word or��sound alike� substitutions may have occurred due to the inherent limitations of voice recognition software.
Discharge Plan
Departure
Patient Disposition: Admit
Date of Disposition: 03/07/25
Time of Disposition: 16:12
Presentation/result/management discussed w/ accepting MD/DO: Cardiology
Discharge Problem:
Intermittent chest pain, Severe cardiomyopathy
Prescriptions:
No Action
acetaminophen [Tylenol] 325 mg Tablet
325 mg PO BIDPRN PRN (Reason: mild pain)
carvedilol 12.5 mg Tablet
12.5 mg PO BID
diltiazem HCl 240 mg capsule,extended release 24hr
240 mg PO DAILY
furosemide 20 mg Tablet
20 mg PO .SEE BELOW PRN (Reason: edema)
Patient Comments:
03/07/2025, prescribed for pt. to take 1 tablet daily but pt. takes dailyprn.
Lumigan 0.01 % Drops
1 drp BOTH EYES DAILY
abiraterone 250 mg tablet
500 mg PO DAILY
Eliquis 5 mg Tablet
5 mg PO BID
Referrals:
Noy Aquino PA-C [Family Provider, Family Practice]
Interventions
Interventions:
*Risk Screen - Suicide Last Done: 03/07/25 12:09
*General Assessment Last Done: 03/07/25 16:18
*Neglect/Abuse Screening Last Done: 03/07/25 12:09
*ED- Fall Risk Assessment Last Done: 03/07/25 16:18
*ED COVID-19 Vaccine History Last Done: 03/07/25 16:18
ED- Cardiac Assessment Last Done: 03/07/25 16:18
Discharge Date and Time
Print Language: AZERI
[2025-03-07 12:55] LABS: Hematocrit 41.7 % (39.0-52.0); Hemoglobin 13.7 g/dL (13.0-18.0); Mean Corp Hgb Conc. 32.9 g/dL (33.0-37.0); Mean Corpuscular Volume 92.1 fL (80.0-94.0); Nucleated Red Blood Cells % 0 % (-); Platelet Count 126 10^3/uL (130-400); Red Cell Dist. Width 14.4 % (11.5-14.5)
[2025-03-07 13:02] LABS: INR 1.61; PT 19.6 Sec (11.4-14.6)
[2025-03-07 13:14] LABS: AST (SGOT) 19 U/L (17-59); Albumin 3.6 g/dl (3.5-5.0); Alkaline Phosphatase 82 U/L (38-126); Blood Urea Nitrogen 19 mg/dl (9-20); Calcium 9.0 mg/dl (8.4-10.2); Carbon Dioxide 23 mmol/L (22-30); Chloride 105 mmol/L (98-107); Glucose 121 mg/dl (70-99); Potassium 4.7 mmol/L (3.5-5.1); Sodium 132 mmol/L (135-145); Total Protein 6.1 g/dl (6.3-8.2); eGFR > 60.00
[2025-03-07 13:17] LABS: Troponin I < 0.012 ng/ml
[2025-03-07 13:26] LABS: ALT (SGPT) 12 U/L (0-50)
--- NOTE | 2025-03-07 15:23 | CARDSERVDEF ---
Echocardiogram with Definity completed after protocol screening completed. Allergies verified.
Patent IV site: Right arm accessory cephalic 20 G PC
IV site flushed with 0.9% NaCl pre and post administration.
Diluted bolus method utilized to enhance visualization of ventricular booth.
Total volume given: _2.5___ mL
Patient tolerated all procedures well without complications.
[2025-03-07] MEDS: ASPIRIN 325 MG PO (16:23)
--- NOTE | 2025-03-07 16:58 | CON.CAR ---
Consultation
Consultation Request
Date/Time Consultation Requested: March 07, 2025 1 PM
Date/Time Consultation Performed: March 07, 2025 at 4 PM
Requesting Provider: Emergency room physician
Performing Provider: Jonathan Kramer
Reason for Consultation: Chest pain
Medical History
-
Chief Complaint: Chest pain
History of Present Illness:
79-year-old male with hypertension, permanent A-fib, history of dilated cardiomyopathy with now severely reduced EF who is here with chest pain. He tells me that yesterday evening he had some chest pain took Tylenol went to bed and it resolved some
point thereafter. He awoke this morning at about 6 or 7 AM did not have chest pain, however, it again occurred and he took Tylenol again as well as his usual medicines and spontaneously resolved maybe 30 minutes after. He tells me the chest pain
is left-sided dull, aching, and nonradiating. Nothing made it worse or better. I discussed my concerns that given his history of cardiomyopathy this could be ischemia related as well as possible heart failure giving his lab values, most notably an
elevated BNP of 19,000. However, he had a negative troponin making ACS less likely. We discussed obtaining an echo which was then obtained and unfortunately his EF is now 10 to 15%. We discussed admission for left and right heart cath tomorrow
for further eval.
Past Medical History
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
Past Surgical History: Other (tkr, prostatectomy, left inguinal hernia repair, laminectomy.)
Social History
Tobacco: Former Smoker
Alcohol: None
Drug: None
Personal:
Living: Alone
Employment: Retired
Family History
Family History: Reviewed & Not Pertinent
Allergies / Home Medications
Allergy/AdvReac Type Severity Reaction Status Date / Time
NSAIDS (Non-Steroidal Allergy Unknown Unknown Verified 03/07/25 12:13
Anti-Inflamma (NSAIDS
(Non-Steroidal
Anti-Inflammatory Drug))
ERASMO Inhibitors (Erasmo Allergy hyperkalemi Verified 03/07/25 12:13
Inhibitors) a
egg (Egg) Allergy upset Verified 03/07/25 12:13
stomach/NAUSEA
gabapentin Allergy Unknown Verified 03/07/25 12:13
lisinopril Allergy Unknown Verified 03/07/25 12:13
lorazepam Allergy hallucinati Verified 03/07/25 12:13
ons,paranoi
a
warfarin sodium (From Allergy Unknown Verified 03/07/25 12:13
Coumadin)
warfarin sodium Allergy Unknown Unknown Uncoded 03/07/25 12:13
�Medication �Instructions �Recorded �Confirmed �Type
abiraterone 250 mg tablet 500 mg PO DAILY 03/07/25 03/07/25 History
acetaminophen 325 mg tablet 325 mg PO BIDPRN PRN mild pain 03/07/25 03/07/25 History
(Tylenol)
apixaban 5 mg tablet (Eliquis) 5 mg PO BID 03/07/25 03/07/25 History
bimatoprost 0.01 % eye drops 1 drp BOTH EYES DAILY 03/07/25 03/07/25 History
(Lumigan)
carvedilol 12.5 mg tablet 12.5 mg PO BID 03/07/25 03/07/25 History
diltiazem HCl 240 mg 240 mg PO DAILY 03/07/25 03/07/25 History
capsule,extended release 24 hr
furosemide 20 mg tablet 20 mg PO .SEE BELOW PRN edema 03/07/25 03/07/25 History
Review of Systems
-
All other systems: Negative unless noted
Physical Exam
Vital Signs
Temp Pulse Resp BP Pulse Ox
98.0 F 83 20 145/81 94
03/07/25 16:18 03/07/25 16:18 03/07/25 16:18 03/07/25 16:18 03/07/25 16:18
Lab Results
03/07/25 12:44
03/07/25 12:44
Troponin I < 0.012 ng/ml 03/07/25 12:44
Wdf-O-Duduvtomarq Pept 33096 pg/ml 03/07/25 12:44
Physical Exam
General: Well Developed and No Apparent Distress
HEENT: Normocephalic
Respiratory: Clear and Non Labored Respirations
Cardiac: Irregular Rhythm
GI: Soft
Musculoskeletal: Edema
Skin: Warm and Dry
Neuro: AO x 3
Hematologic/Lymphatic: No Lymphadenopathy
Psych: Calm
Impression / Plan
-
a/p: 79-year-old male with past medical history of dilated cardiomyopathy that had resolved but is now severely reduced EF 10 to 15%, hypertension, permanent A-fib on Eliquis, who is here for evaluation of chest pain. This does not appear to be ACS
in nature, however, given his new severely reduced ejection fraction likely heart failure will be admitted for further evaluation.
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
- Right and left heart cath planned for tomorrow hold Eliquis aspirin 324 mg given
- Will need to benjamin out GDMT
- Continue carvedilol
- Stop diltiazem
- IV Lasix 40 mg daily for now
Hypertension
- As above
A-fib
- Hold Eliquis in anticipation of heart cath continue Coreg stop diltiazem
Echo March 07, 2025 CONCLUSIONS
Dilated LV with severely reduced systolic function.
LVEF is 10 to 15% by visual estimation. Severe diffuse global hypokinesis.
Mildly dilated RV with normal systolic function.
Mild to moderate mitral regurgitation.
Mild aortic regurgitation.
Moderate tricuspid regurgitation.
Estimated pulmonary artery pressure of 50 mmHg assuming a right atrial pressure
of 3 mmHg.
Compared to prior from November 19, 2022, EF is now severely reduced, previously
normal, MR is now mild to moderate, previously mild, TR is now moderate,
previously mild and estimated PASP is mildly elevated at 50 mmHg.
Data Reviewed
-
EKG: Tracing Personally Visualized and interpreted (af)
Radiology: Report Reviewed by me
Medical Tests (Nuc Med, Echo etc): Image Personally Visualized and interpreted and Report Reviewed by me
Labs: Labs Reviewed by me
--- NOTE | 2025-03-07 18:46 | HPS.HSE ---
Family Physician
-
Family Physician: Noy Aquino PA-C
Chief Complaint
-
Chest Pain
History of Present Illness
79-year-old male with hypertension, hyperlipidemia, permanent A-fib, history of dilated cardiomyopathy status post AICD, prostate cancer, type 2 diabetes mellitus, hemorrhagic CVA, BPPV, chronic back pain/lumbar radiculopathy, peripheral
polyneuropathy and gait disorder presented with dull, left-sided chest pain since yesterday late in the day. There were no alleviating or exacerbating factors to his chest pain. He denied any SOB, dizziness or any other symptoms on review of systems.
Medical History
Past Medical History
Past Medical History: Reports Other (As per HPI above)
Past Surgical History: Reports Other (Ventricular shunt, cataract, prostate, pacemaker and AICD)
Social History
Tobacco: Former Smoker
Alcohol: Occasional
Drug: None
Family History
Family History: Not pertinent
Allergies / Home Medications
Allergies reflects when Allergies were last updated in [facility].
Home Medications with original date entered in [facility]
Allergy/Medication List:
Allergies
Allergy/AdvReac Type Severity Reaction Status Date / Time
NSAIDS (Non-Steroidal Allergy Unknown Unknown Verified 03/07/25 12:13
Anti-Inflamma (NSAIDS
(Non-Steroidal
Anti-Inflammatory Drug))
ERASMO Inhibitors (Erasmo Allergy hyperkalemi Verified 03/07/25 12:13
Inhibitors) a
egg (Egg) Allergy upset Verified 03/07/25 12:13
stomach/NAUSEA
gabapentin Allergy Unknown Verified 03/07/25 12:13
lisinopril Allergy Unknown Verified 03/07/25 12:13
lorazepam Allergy hallucinati Verified 03/07/25 12:13
ons,paranoi
a
warfarin sodium (From Allergy Unknown Verified 03/07/25 12:13
Coumadin)
warfarin sodium Allergy Unknown Unknown Uncoded 03/07/25 12:13
Home Medications
abiraterone 250 mg tablet 500 mg PO DAILY 03/07/25
acetaminophen 325 mg tablet (Tylenol) 325 mg PO BIDPRN PRN mild pain 03/07/25
apixaban 5 mg tablet (Eliquis) 5 mg PO BID 03/07/25
bimatoprost 0.01 % eye drops (Lumigan) 1 drp BOTH EYES DAILY 03/07/25
carvedilol 12.5 mg tablet 12.5 mg PO BID 03/07/25
diltiazem HCl 240 mg capsule,extended release 24 hr 240 mg PO DAILY 03/07/25
furosemide 20 mg tablet 20 mg PO .SEE BELOW PRN edema 03/07/25
Review of Systems
-
A 12 point ROS was completed and negative except as noted: Yes
Physical Exam
Vital Signs
Vital Signs
Temp Pulse Resp BP Pulse Ox
98.0 F 83 20 145/81 94
03/07/25 16:18 03/07/25 16:18 03/07/25 16:18 03/07/25 16:18 03/07/25 16:18
Physical Exam
General: No Apparent Distress
HEENT: NormoCephalic and Moist mucous membranes
Respiratory: Clear
Cardiac: S1/S2 and Irregular Rhythm
GI: Soft, Non Tender and Normal Bowel Sounds
Musculoskeletal: No Cyanosis, Edema, Left Lower Extremity and Edema, Right Lower Extremity
Skin: Warm and Dry
Neuro: Awake, Alert and AO x 3
Psych: Calm and Intact Judgment/Insight
Laboratory Results
-
03/07/25 12:44
03/07/25 12:44
Laboratory Results
PT 19.6 Sec (11.4-14.6) H 03/07/25 12:44
INR 1.61 03/07/25 12:44
Total Bilirubin 0.9 mg/dl (0.2-1.3) 03/07/25 12:44
AST 19 U/L (17-59) 03/07/25 12:44
ALT 12 U/L (0-50) 03/07/25 12:44
Alkaline Phosphatase 82 U/L (38-126) 03/07/25 12:44
Troponin I < 0.012 ng/ml 03/07/25 12:44
Impression/Plan
-
Assessment/Plan
Presentation with Intermittent Chest Pain
History of dilated cardiomyopathy status post AICD
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
- Aspirin 324 mg given in the ER
- IV Lasix 40 mg daily for now
- Right and left heart cath planned for tomorrow
- NPO after midnight
- Hold Eliquis
- Continue carvedilol
- Stop diltiazem given severely reduced ejection fraction
- Given patient is getting cardiac cath and has severely reduced EF, admit patient to and monitor in IVU
Permanent Atrial fibrillation
- Continue Carvedilol
- Stop Diltiazem given severely reduced EF
- Hold Eliquis for cardiac cath tomorrow
- Monitor in IVU
Hypertension
- Continue beta zaida, but stop Diltiazem
Hyperlipidemia
Additional History
Prostate cancer
History of type 2 diabetes mellitus
Hemorrhagic CVA
BPPV
Chronic back pain/lumbar radiculopathy
Peripheral polyneuropathy
Gait disorder
History of surgeries/procedures: Ventricular shunt, cataract, prostate
DVT Prophylaxis: SCDs
Code Status: Full Code
[2025-03-07] MEDS: LASIX 40 MG IV (20:15)
[2025-03-07 22:44] LABS: Troponin I < 0.012 ng/ml
[2025-03-07] MEDS: COREG 12.5 MG PO (23:57)
[2025-03-08] VITALS (16 sets, daily range): BP systolic 115–146; BP diastolic 54–104; BMI 29.5; BMI 26.9
--- NOTE | 2025-03-08 02:04 | PTCARENOTE ---
Received patient from the ED. Afib on the monitor, with some V pacing, HR in the 80s. VSS on room air. Alert and oriented. Fall risk. NPO. Admission assessment completed. Oriented pt to room and plan of care, pt verbalizes understanding. No
complaints from pt at this time, call teran within reach.
[2025-03-08 03:56] LABS: Hematocrit 43.0 % (39.0-52.0); Hemoglobin 14.8 g/dL (13.0-18.0); Mean Corp Hgb Conc. 34.4 g/dL (33.0-37.0); Mean Corpuscular Volume 91.3 fL (80.0-94.0); Platelet Count 115 10^3/uL (130-400); Red Cell Dist. Width 14.2 % (11.5-14.5)
[2025-03-08 03:57] LABS: Urine Character Clear (Clear)
[2025-03-08 04:16] LABS: Blood Urea Nitrogen 19 mg/dl (9-20); Calcium 8.8 mg/dl (8.4-10.2); Carbon Dioxide 23 mmol/L (22-30); Chloride 104 mmol/L (98-107); Estimated Creatinine Clearance 65 ml/min; Glucose 117 mg/dl (70-99); Magnesium 2.0 mg/dl (1.6-2.3); Potassium 4.7 mmol/L (3.5-5.1); Sodium 134 mmol/L (135-145); eGFR > 60.00
[2025-03-08 04:26] LABS: Troponin I < 0.012 ng/ml
[2025-03-08 04:47] LABS: Urine Squamous Cell >30 /LPF (Few)
[2025-03-08 04:48] LABS: Urine White Cell 0-2 /HPF (0-5)
[2025-03-08] MEDS: FLUSH (NSS) 1 FLUSH IV (08:00)
[2025-03-08] MEDS: COREG 12.5 MG PO ×2 (08:00→20:06)
[2025-03-08] MEDS: LOW STRENGTH ASPIRIN 81 MG PO (08:00)
--- NOTE | 2025-03-08 09:04 | PTCARENOTE ---
Patient resting in bed, NPO x meds, AM care given and patient taken to the laborer hide house.
--- NOTE | 2025-03-08 10:18 | ITS.CL.PN ---
Office Bookkeeper - Procedure Note
Procedure
Procedure Note:
CARDIAC CATHETERIZATION REPORT
Date of Procedure: 03/08/2025
Referring: Dr. Rommel Woods MD
Indication: new cardiomyopathy and angina
PROCEDURE(S)
1. right heart catheterization
2. left heart catheterization
3. coronary angiography
ACCESS
1. 6F right radial artery (closure: radial band; note: abandoned due to radial loop unable to be crossed with babyJ, Glidewire, coronary wire, including with support of glide catheter)
2. 6F right common femoral artery (closure: Angioseal x1)
3. 5F right antecubital vein (closure: manual hemostasis)
CATHETERS
1. 5F [place]
2. 6F JR4
3. 6F JL3.5
MODERATE SEDATION: 25 minutes of moderate sedation was utilized. An independent medical transcriptionist was present to assist with and help manage the patient's level of consciousness and physiologic status.
HEMODYNAMIC DATA
LV 137/24 (EDP 32) mmHg
AO 146/82 (mean 105) mmHg
RA 17 mmHg
RV 60/9 (EDP 17) mmHg
PA 61/32 (mean 42) mmHg
PCWP 26 mmHg
SaO2 95.4%
SvO2 59.9%
Hb 13.9 g/dL
CO/CI 3.96/1.86 L/min/m2
SVR 1779 dsc*-5
PVR 4.0 Wood units
CORONARY ANGIOGRAPHY
Dominance: Right
LM: large with mild disease
LAD: large vessel giving rise to a large branching D1, moderate caliber D2, small D3, and small D4. There is significant calcification throughout the vessel. The D1 has moderate disease proximally extending distally into both branches, which are
both severely diseased at their proximal/ostial aspect but minimally diseased distally. D2 has diffuse moderate disease. The LAD itself has diffuse mild disease proximally, with a segment of severe 80% stenosis just after D3 and post-stenotic
dilation.
LCx: large vessel giving rise to a very small OM1 and OM2, and a moderate caliber OM3. There is mild diffuse disease.
RCA: large vessel with diffuse mild-moderate mid-vessel disease focally up to 40%
RADIATION: dose 452 mGy; DAP 41 Gy*cm2; fluoroscopy time 9.9 min
CONCLUSIONS
1. Severe, technically one-vessel coronary artery disease but with involvement of a large territory (D1 function acts as a Ramus branch and the LCx and RCA territories are relatively small).
2. 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
3. No on hemodynamic pullback.
4. Overall, the degree of cardiomyopathy seems somewhat out of proportion to his coronary disease and while his presenting symptoms are anginal, they are atypical and troponin is negative (despite his cardiomyopathy). To me this suggests a mixed
ischemic and non-ischemic process. The benefit revascularization will need to be weighted against risk. I would advocate for initial optimization of medical therapy for HFrEF and consideration of revascularization in the future pending his course
and residual symptoms.
RECOMMENDATIONS
1. GDMT for HFrEF: start valsartan 40 BID with eventual transition to Entresto (case management consult for Entresto and [id number] costs)
2. diuresis with lasix IV 40 BID
3. daily ASA
4. high intensity statin for goal LDL<55
Copy to: Dr. Jonathan Kramer MD (brush machine setter); LENO Garcia (PCP)
Signed: Mac Amaya MD, PhD
[2025-03-08] MEDS: LASIX 40 MG IV ×2 (10:32→15:43)
[2025-03-08] MEDS: XALATAN OPHTHALMIC SOLUTION 1 DROP BOTH EYES (10:32)
[2025-03-08] MEDS: LASIX IV (10:33)
--- NOTE | 2025-03-08 11:09 | CM ---
Priced the following medications thru patient's insurance plan,
Patient has approx. $417 left in $2000 total out of pocket for the year. Once met the below pricing will go down to $0.
Entrestro- $81.52/mo
Farxiga- $138.60/mo
Jardiance- $145.46/mo
TT to RISK CONTROL ANALYST to update.
--- NOTE | 2025-03-08 11:14 | PTCARENOTE ---
Patient returned from analytical lab analyst after R & LHC. Radial band in place right wrist which is dry and intact, dressing in place right brachial which is dry and intact and radial pulse is palpable. Dressing is dry and intact right groin with right DP pulse
palpable. Reinforced post cath activity restrictions and monitoring VS as per protocol. While patient is sleeping his pulse ox drops to the mid 80's, placed on 2L NC with pulse ox of 94%. Stat dose of IV lasix given, patient is incontinent, urinal
propped. Call teran in reach.
--- NOTE | 2025-03-08 15:29 | W.PN.HOSP.TC ---
Today's Communication/Plan
-
Cardiac cath today with severe LAD/diagonal disease
Increase frequency of IV Lasix
Continue Aspirin, Valsartan, Eliquis
Resume Eliquis
Assessment / Plan
Assessment / Plan
Physical Exam
General: No Apparent Distress
HEENT: NormoCephalic and Moist mucous membranes
Respiratory: Clear
Cardiac: S1/S2 and Irregular Rhythm
GI: Soft, Non Tender and Normal Bowel Sounds
Musculoskeletal: No Cyanosis, Edema, Left Lower Extremity and Edema, Right Lower Extremity
Skin: Warm and Dry
Neuro: Awake, Alert and AO x 3
Psych: Calm and Intact Judgment/Insight
Assessment/Plan
79-year-old male with hypertension, hyperlipidemia, permanent A-fib, history of dilated cardiomyopathy status post AICD, prostate cancer, type 2 diabetes mellitus, hemorrhagic CVA, BPPV, chronic back pain/lumbar radiculopathy, peripheral
polyneuropathy and gait disorder presented with dull, left-sided chest pain since yesterday late in the day. There were no alleviating or exacerbating factors to his chest pain. He denied any SOB, dizziness or any other symptoms on review of systems.
Presentation with Intermittent Chest Pain
History of dilated cardiomyopathy status post AICD
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
- Aspirin 324 mg given in the ER
- IV Lasix 40 mg daily for now
- Cardiac cath took place on 03/08/25: severe LAD/diagonal disease, per Dr. Amaya, cardiomyopathy is likely mixed and given negative troponins, best first step here is medical optimization of heart failure with symptom
driven PCI down the line (probably as outpatient)
- GDMT: Valsartan started (eventually transition to Entresto)
- Continue IV Lasix -- increased to BID
- Case management to check cost of Entresto and SGLT2i.
- Resume Eliquis (was held for cardiac cath)
- Continue carvedilol
- Stop diltiazem given severely reduced ejection fraction
- Given patient is getting cardiac cath and has severely reduced EF, admit patient to and monitor in IVU
Permanent Atrial fibrillation
- Continue Carvedilol
- Stop Diltiazem given severely reduced EF
- Resume Eliquis (was held for cardiac cath)
- Monitor in IVU
Hypertension
- Continue beta zaida, but stop Diltiazem
Hyperlipidemia
Additional History
Prostate cancer
History of type 2 diabetes mellitus
Hemorrhagic CVA
BPPV
Chronic back pain/lumbar radiculopathy
Peripheral polyneuropathy
Gait disorder
History of surgeries/procedures: Ventricular shunt, cataract, prostate
DVT Prophylaxis: SCDs. Eliquis.
Code Status: Full Code
Anticipated Discharge: 24 - 48 hours
Subjective/Interval History
-
Date of Service: March 08, 2025
Patient was seen and examined. He denied any chest pain or shortness of breath.
Objective Data
-
Labs:
Laboratory Results
03/08/25
03:32
WBC 3.2 L
Hgb 14.8
Hct 43.0
Plt Count 115 L
Sodium 134 L
Potassium 4.7
Chloride 104
Carbon Dioxide 23
BUN 19
Creatinine 1.0
Glucose 117 H
Calcium 8.8
Vital Signs:
Vital Signs
Temp Pulse Resp BP Pulse Ox
97.6 F 76 20 141/85 96
03/08/25 10:27 03/08/25 12:15 03/08/25 10:27 03/08/25 12:00 03/08/25 12:15
I&O
03/07/25 03/08/25 03/09/25
06:59 06:59 06:59
Intake Total 240 / 240
Output Total 1000 / 1000
Balance -760 / -760
[2025-03-08] MEDS: FLUSH (NSS) 2 FLUSH IV (15:43)
--- NOTE | 2025-03-08 16:02 | PTCARENOTE ---
Right wrist and right brachial dressings are dry and intact. Right femoral dressing with moderate amount of serosanguineous drainage, contained in the dressing. Patient sitting oob in the chair, patient insisting initially he could transfer himself.
He is very unsteady on his feet, having difficulty moving his legs. Chair alarm in place, call teran in reach.
--- NOTE | 2025-03-08 16:11 | CM ---
CM following for DC planning needs.
Met w/ patient at bedside to complete initial assessment.
Pt. resides alone in a private, [address]
His dtr. resides closeby and helps out as needed.
Pt. reports that he is indep. and uses a RW for mobility.
Pt. would like to have home PT upon DC. Will initiate referral closer to DC.
Pt. states he may need CT Surgery.
Did explain to him anticipated costs of medication to include Entresto, Farxiga and Jardiance. He understands his estimated co pay and out of pocket deductible. Will provide coupon for medication he is ultimately RXed at DC.
Goal is for home w/ home-care upon DC.
Will cont. to follow.
[2025-03-08] MEDS: ELIQUIS 5 MG PO (20:06)
[2025-03-08] MEDS: DIOVAN 40 MG PO (20:06)
--- NOTE | 2025-03-08 22:40 | PTCARENOTE ---
Received patient from change of shift. Afib with some PVCs and V pacing, on the monitor, HR in the 70s. Fall risk with a bed alarm. R radial and brachial dressing intact. R groin with some oozing, dressing changed. No complaints from pt at this
time, call teran within reach.
[2025-03-09] VITALS (8 sets, daily range): BP systolic 113–141; BP diastolic 55–86; PULSE 82; BMI 25.6
[2025-03-09 04:46] LABS: Hematocrit 43.8 % (39.0-52.0); Hemoglobin 14.8 g/dL (13.0-18.0); Mean Corp Hgb Conc. 33.8 g/dL (33.0-37.0); Mean Corpuscular Volume 90.1 fL (80.0-94.0); Platelet Count 113 10^3/uL (130-400); Red Cell Dist. Width 14.2 % (11.5-14.5)
[2025-03-09 05:10] LABS: Blood Urea Nitrogen 21 mg/dl (9-20); Calcium 8.6 mg/dl (8.4-10.2); Carbon Dioxide 24 mmol/L (22-30); Chloride 102 mmol/L (98-107); Estimated Creatinine Clearance 65 ml/min; Glucose 113 mg/dl (70-99); Potassium 4.2 mmol/L (3.5-5.1); Sodium 134 mmol/L (135-145); eGFR > 60.00
--- NOTE | 2025-03-09 08:27 | W.PN.CD ---
Today's Communication / Plan
-
Continue diuresis with IV Lasix. over a liter negative from yesterday
Cost of meds as noted. Would seem reasonable to transition him to Farxiga and Entresto if patient okay with this plan
Impression / Plan
-
a/p: 79-year-old male with past medical history of dilated cardiomyopathy that had resolved but is now severely reduced EF 10 to 15%, hypertension, permanent A-fib on Eliquis, who is here for evaluation of chest pain. This does not appear to be ACS
in nature, however, given his new severely reduced ejection fraction likely heart failure will be admitted for further evaluation.
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
-Cardiomyopathy at a proportion to degree of coronary artery disease. Diffuse 80% LAD after diagonal. Plan for continued medical therapy for coronary artery disease and plan for optimization of treatment of heart failure and cardiomyopathy. PCWP
26 at time of cath 03/08/2025
- Continue carvedilol
-Valsartan added. Case management to assessesd cost for Entresto and SGLT2 inhibitor. Apparently has formed and $417 left and 2000 total of [id number] and once this is reached he will pay $0 for these meds. In the interim Entresto $81 a month
Farxiga 138 Jardiance 145
-IV Lasix was increased yesterday
-Note that in medication allergies hyperkalemia with MARGARITA inhibitor's as listed. Will need to continue to monitor on ARB and for this reason I would not add spironolactone at this time
-
A-fib
-Continue Eliquis. Coreg for rate control
Echo March 07, 2025 CONCLUSIONS
Dilated LV with severely reduced systolic function.
LVEF is 10 to 15% by visual estimation. Severe diffuse global hypokinesis.
Mildly dilated RV with normal systolic function.
Mild to moderate mitral regurgitation.
Mild aortic regurgitation.
Moderate tricuspid regurgitation.
Estimated pulmonary artery pressure of 50 mmHg assuming a right atrial pressure
of 3 mmHg.
Compared to prior from November 19, 2022, EF is now severely reduced, previously
normal, MR is now mild to moderate, previously mild, TR is now moderate,
previously mild and estimated PASP is mildly elevated at 50 mmHg.
Physical Exam
Vital Signs/Labs
Vital Signs
Temp Pulse Resp BP Pulse Ox
97.7 F 90 18 136/76 96
03/09/25 08:21 03/09/25 08:21 03/09/25 08:21 03/09/25 04:03 03/09/25 08:21
03/08/25 03/09/25 03/10/25
06:59 06:59 06:59
Actual Weight 90 kg
03/09/25 04:19
03/09/25 04:19
PT 19.6 Sec (11.4-14.6) H 03/07/25 12:44
INR 1.61 03/07/25 12:44
Magnesium 2.0 mg/dl (1.6-2.3) 03/08/25 03:32
03/07/25
12:44
Cka-[id number]-[id number] Pept
LAB Results
03/07/25 03/07/25 03/08/25
12:44 22:12 03:32
Troponin I < 0.012 < 0.012 < 0.012
03/08/25 03/08/25
09:34 15:34
Troponin I Cancelled Cancelled
Physical Exam
Constitutional: No acute distress
EENT: Anicteric
Cardiovascular: Rhythm & rate is regular
Respiratory: Respiratory effort normal and Wheeze Absent
GI: Soft and Non tender
Data Reviewed
-
Date of Service: March 09, 2025
Medical Decision Making: Reviewed Test Results
X-Ray/CT/US/MRI/NUC/PET: Report Reviewed by me
Medical Tests (PFT, Pathology etc): Report Reviewed by me
Labs: Labs Reviewed by me
[2025-03-09] MEDS: ELIQUIS 5 MG PO ×2 (09:20→19:37)
[2025-03-09] MEDS: COREG 12.5 MG PO ×2 (09:20→19:38)
[2025-03-09] MEDS: DIOVAN 40 MG PO (09:20)
[2025-03-09] MEDS: LASIX 40 MG IV ×2 (09:21→16:28)
[2025-03-09] MEDS: FLUSH (NSS) 2 FLUSH IV ×2 (09:21→16:29)
[2025-03-09] MEDS: XALATAN OPHTHALMIC SOLUTION 1 DROP BOTH EYES (09:22)
[2025-03-09] MEDS: LOW STRENGTH ASPIRIN 81 MG PO (09:22)
--- NOTE | 2025-03-09 09:25 | PN.CDI ---
CDI
- -
CDI:
Physician Documentation Request
Admit Date: 03/07/25 20:14
Dear Kwesi,
Please review the following and provide your response in the progress notes.
Clinical Indicators:
- 03/08 PN 'Heart failure reduced ejection fraction EF 10 to 15%'
- 03/09 Cardiology 'Cardiomyopathy at a proportion to degree of coronary artery disease'
- 'Valsartan added...IV Lasix increased yesterday'
- proBNP
- 40 mg IV Lasix given x 4
Please clarify which of the following accurately represents the acuity of the HFrEF
Acute HFrEF
Acute on chronic HFrEF
Other (please specify)
Use of terms such as suspected, likely, concern for, or probable (associated with a specific diagnosis that is being evaluated, monitored, or treated as if it exists) are acceptable and can be coded in the inpatient setting, when documented at the
time of discharge.
Thank you,
Cathi Parra RN
CDI Specialist
Please use your independent medical judgment in providing your response.
--- NOTE | 2025-03-09 10:27 | PTCARENOTE ---
Patient assisted oob to the chair this morning, chair alarm in place. Patient offers no complaints, wants to go home. Diuresing as ordered, patient wearing depends from home, grossly incontinent, with no bladder control. Call teran in reach.
[2025-03-09] MEDS: FARXIGA 10 MG PO (11:14)
--- NOTE | 2025-03-09 18:00 | W.PN.HOSP.TC ---
Today's Communication/Plan
-
Continue IV Lasix
Guideline directed medical therapy
Assessment / Plan
Assessment / Plan
Physical Exam
General: No Apparent Distress
HEENT: NormoCephalic and Moist mucous membranes
Respiratory: Clear
Cardiac: S1/S2 and Irregular Rhythm
GI: Soft, Non Tender and Normal Bowel Sounds
Musculoskeletal: No Cyanosis, Edema, Left Lower Extremity and Edema, Right Lower Extremity
Skin: Warm and Dry
Neuro: Awake, Alert and AO x 3
Psych: Calm and Intact Judgment/Insight
Assessment/Plan
79-year-old male with hypertension, hyperlipidemia, permanent A-fib, history of dilated cardiomyopathy status post AICD, prostate cancer, type 2 diabetes mellitus, hemorrhagic CVA, BPPV, chronic back pain/lumbar radiculopathy, peripheral
polyneuropathy and gait disorder presented with dull, left-sided chest pain since yesterday late in the day. There were no alleviating or exacerbating factors to his chest pain. He denied any SOB, dizziness or any other symptoms on review of systems.
Presentation with Intermittent Chest Pain
History of dilated cardiomyopathy status post AICD
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
Acute HFrEF
- Aspirin 324 mg given in the ER
- Continue IV Lasix 40 mg BID
- Cardiac cath took place on 03/08/25: severe LAD/diagonal disease, per Dr. Amaya, cardiomyopathy is likely mixed and given negative troponins, best first step here is medical optimization of heart failure with symptom
driven PCI down the line (probably as outpatient)
- Continue newly started Entresto low dose BID and SGLT2i -- Entresto does not need washout period after being switched from Valsartan
- Continue Eliquis
- Continue carvedilol
- Stop diltiazem given severely reduced ejection fraction
- Given patient is getting cardiac cath and has severely reduced EF, admit patient to and monitor in IVU
History of Hyperkalemia with MARGARITA-Inhibitors
- Need to continue to monitor on Entresto
- No Spironolactone at this time
Permanent Atrial fibrillation
- Continue Carvedilol
- Stop Diltiazem given severely reduced EF
- Resume Eliquis (was held for cardiac cath)
- Monitor in IVU
Hypertension
- Continue beta zaida, but stop Diltiazem
Hyperlipidemia
Additional History
Prostate cancer
History of type 2 diabetes mellitus
Hemorrhagic CVA
BPPV
Chronic back pain/lumbar radiculopathy
Peripheral polyneuropathy
Gait disorder
History of surgeries/procedures: Ventricular shunt, cataract, prostate
DVT Prophylaxis: SCDs. Eliquis.
Code Status: Full Code
Anticipated Discharge: 24 - 48 hours
Subjective/Interval History
-
Date of Service: March 09, 2025
Patient was seen and examined. He denied any new symptoms or complaints.
Objective Data
-
Vital Signs:
Vital Signs
Temp Pulse Resp BP Pulse Ox
98.2 F 99 20 130/82 91
03/09/25 15:15 03/09/25 16:45 03/09/25 15:15 03/09/25 15:15 03/09/25 15:15
I&O
03/08/25 03/09/25 03/10/25
06:59 06:59 06:59
Intake Total 240 / 240 720 / 720
Output Total 2200 / 2200
Balance -1959 / -1960 720 / 720
[2025-03-09] MEDS: ENTRESTO 24 MG/26 MG 1 TAB PO (19:37)
[2025-03-10] VITALS (17 sets, daily range): BP systolic 79–151; BP diastolic 41–136; BMI 24.8
[2025-03-10 04:21] LABS: Hematocrit 43.9 % (39.0-52.0); Hemoglobin 14.9 g/dL (13.0-18.0); Mean Corp Hgb Conc. 33.9 g/dL (33.0-37.0); Mean Corpuscular Volume 90.0 fL (80.0-94.0); Platelet Count 113 10^3/uL (130-400); Red Cell Dist. Width 14.2 % (11.5-14.5)
[2025-03-10 04:42] LABS: Blood Urea Nitrogen 20 mg/dl (9-20); Calcium 8.5 mg/dl (8.4-10.2); Carbon Dioxide 31 mmol/L (22-30); Chloride 99 mmol/L (98-107); Estimated Creatinine Clearance 65 ml/min; Glucose 100 mg/dl (70-99); Magnesium 1.9 mg/dl (1.6-2.3); Potassium 3.5 mmol/L (3.5-5.1); Sodium 134 mmol/L (135-145); eGFR > 60.00
--- NOTE | 2025-03-10 05:43 | PTCARENOTE ---
Pt AFib on monitor with occasional VPaced. VSS. Pt denies SOB or any discomfort. Safety measures in place, call teran within reach
[2025-03-10] MEDS: FARXIGA 10 MG PO (08:55)
[2025-03-10] MEDS: ELIQUIS 5 MG PO ×2 (08:55→21:57)
[2025-03-10] MEDS: LOW STRENGTH ASPIRIN 81 MG PO (08:55)
[2025-03-10] MEDS: ENTRESTO 24 MG/26 MG PO ×2 (08:55→10:36)
[2025-03-10] MEDS: COREG 12.5 MG PO ×2 (08:55→21:57)
[2025-03-10] MEDS: LASIX IV ×2 (08:56→10:37)
[2025-03-10] MEDS: XALATAN OPHTHALMIC SOLUTION 1 DROP BOTH EYES (08:58)
--- NOTE | 2025-03-10 09:35 | PTCARENOTE ---
Assumed care at 0700. Patient AO x 3. V-paced underlying A-fib LLE +2 edema, RLE trace edema. Grossly incontinent of urine with no bladder control. Assisted to the chair using a rolling walker. Bed and chair alarms in place for safety, call teran in
reach
--- NOTE | 2025-03-10 10:20 | W.PN.CD ---
Today's Communication / Plan
-
Patient was feeling well with stable blood pressure this morning in bed currently blood pressure lower when he was out of bed with systolics in the 80s.
Holding Entresto and diuretic and reassessing
Stopping IV Lasix with plans to transition to oral Lasix tomorrow. I will give Lasix holiday today
Can reassess ability to resume Entresto versus going back to low-dose of valsartan
Impression / Plan
-
a/p: 79-year-old male with past medical history of dilated cardiomyopathy that had resolved but is now severely reduced EF 10 to 15%, hypertension, permanent A-fib on Eliquis, who is here for evaluation of chest pain. This does not appear to be ACS
in nature, however, given his new severely reduced ejection fraction likely heart failure will be admitted for further evaluation.
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
-Cardiomyopathy at a proportion to degree of coronary artery disease. Diffuse 80% LAD after diagonal. Plan for continued medical therapy for coronary artery disease and plan for optimization of treatment of heart failure and cardiomyopathy. PCWP
26 at time of cath 03/08/2025
- Continue carvedilol
-Valsartan added. Case management to assessesd cost for Entresto and SGLT2 inhibitor. Apparently has formed and $417 left and 2000 total of [id number] and once this is reached he will pay $0 for these meds. In the interim Entresto $81 a month
Farxiga 138 Jardiance 145. I reviewed with patient and he is willing to pay the money for Entresto and Farxiga so they were initiated and valsartan was discontinued. To tolerate this yesterday but blood pressures are lower today may also be
related to additional diuresis. Will hold Entresto this morning and reassess pressures. If blood pressure comes up while Lasix being held then we will consider restarting otherwise may need to change back to valsartan
-IV Lasix stopped. Transitioning to oral. Patient with some lower blood pressures will hold off on additional Lasix today and restart oral diuretic tomorrow
-Note that in medication allergies hyperkalemia with MARGARITA inhibitor's as listed. Will need to continue to monitor on ARB and for this reason I would not add spironolactone at this time
-
A-fib
-Continue Eliquis. Coreg for rate control
Echo March 07, 2025 CONCLUSIONS
Dilated LV with severely reduced systolic function.
LVEF is 10 to 15% by visual estimation. Severe diffuse global hypokinesis.
Mildly dilated RV with normal systolic function.
Mild to moderate mitral regurgitation.
Mild aortic regurgitation.
Moderate tricuspid regurgitation.
Estimated pulmonary artery pressure of 50 mmHg assuming a right atrial pressure
of 3 mmHg.
Compared to prior from November 19, 2022, EF is now severely reduced, previously
normal, MR is now mild to moderate, previously mild, TR is now moderate,
previously mild and estimated PASP is mildly elevated at 50 mmHg.
Physical Exam
Vital Signs/Labs
Vital Signs
Temp Pulse Resp BP Pulse Ox
98.2 F 83 16 80/55 94
03/10/25 07:52 03/10/25 10:04 03/10/25 07:52 03/10/25 10:04 03/10/25 10:04
03/09/25 03/10/25 03/11/25
06:59 06:59 06:59
Actual Weight 82.9 kg
03/10/25 04:01
03/10/25 04:01
PT 19.6 Sec (11.4-14.6) H 03/07/25 12:44
INR 1.61 03/07/25 12:44
Magnesium 1.9 mg/dl (1.6-2.3) 03/10/25 04:01
03/07/25
12:44
Vnq-[id number]-Imndrgkaqtv Pept
LAB Results
03/07/25 03/07/25 03/08/25
12:44 22:12 03:32
Troponin I < 0.012 < 0.012 < 0.012
03/08/25 03/08/25
09:34 15:34
Troponin I Cancelled Cancelled
Physical Exam
Constitutional: No acute distress
Cardiovascular: Rhythm & rate is regular
Respiratory: Respiratory effort normal and Wheeze Absent
GI: Soft
Neuro/Psych: Alert
Data Reviewed
-
Date of Service: March 10, 2025
Medical Decision Making: Reviewed Test Results
EKG: Report Reviewed by me
Medical Tests (PFT, Pathology etc): Report Reviewed by me
Labs: Labs Reviewed by me
--- NOTE | 2025-03-10 10:33 | W.PN.HOSP.TC ---
Today's Communication/Plan
-
Hypotension today=barrier to discharge. Entresto stopped and switched back to Valsartan; no further Lasix today with plan to resume Lasix tomorrow.
Assessment / Plan
Assessment / Plan
Physical Exam
General: No Apparent Distress
HEENT: NormoCephalic and Moist mucous membranes
Respiratory: Clear
Cardiac: S1/S2 and Irregular Rhythm
GI: Soft, Non Tender and Normal Bowel Sounds
Musculoskeletal: No Cyanosis, Edema, Left Lower Extremity and Edema, Right Lower Extremity
Skin: Warm and Dry
Neuro: Awake, Alert and AO x 3
Psych: Calm and Intact Judgment/Insight
Assessment/Plan
79-year-old male with hypertension, hyperlipidemia, permanent A-fib, history of dilated cardiomyopathy status post AICD, prostate cancer, type 2 diabetes mellitus, hemorrhagic CVA, BPPV, chronic back pain/lumbar radiculopathy, peripheral
polyneuropathy and gait disorder presented with dull, left-sided chest pain since yesterday late in the day. There were no alleviating or exacerbating factors to his chest pain. He denied any SOB, dizziness or any other symptoms on review of systems.
Presentation with Intermittent Chest Pain
History of dilated cardiomyopathy status post AICD
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
Acute HFrEF
- Aspirin 324 mg given in the ER
- IV Lasix 40 mg BID --> stopped; hold Lasix today given hypotension with SBP in the 80s, resume with PO Lasix tomorrow
- Cardiac cath took place on 03/08/25: severe LAD/diagonal disease, per Dr. Amaya, cardiomyopathy is likely mixed and given negative troponins, best first step here is medical optimization of heart failure with symptom
driven PCI down the line (probably as outpatient)
- Hypotension an issue with newly started low dose BID Entresto low dose BID; so switched back to Valsartan today
- Continue Eliquis
- Continue carvedilol
- Stop diltiazem given severely reduced ejection fraction
- Given patient is getting cardiac cath and has severely reduced EF, admit patient to and monitor in IVU
- Cardiology recommended keeping patient in hospital and monitoring his BP overnight (given earlier hypotension with SBP in the 80s) after Entresto stopped and Valsartan restarted
History of Hyperkalemia with MARGARITA-Inhibitors
- Need to continue to monitor BMP
- No Spironolactone at this time
Permanent Atrial fibrillation
- Continue Carvedilol
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
- Resume Eliquis (was held for cardiac cath)
- Monitor in IVU
Hypertension
- Continue beta zaida, but stop Diltiazem
Hyperlipidemia
Additional History
Prostate cancer
History of type 2 diabetes mellitus
Hemorrhagic CVA
BPPV
Chronic back pain/lumbar radiculopathy
Peripheral polyneuropathy
Gait disorder
History of surgeries/procedures: Ventricular shunt, cataract, prostate
DVT Prophylaxis: SCDs. Eliquis.
Code Status: Full Code
Anticipated Discharge: Within 24 hours
Subjective/Interval History
-
Date of Service: March 10, 2025
Patient was seen and examined. He denied any chest pain, SOB or any other complaints.
Objective Data
-
Labs:
Laboratory Results
03/10/25
04:01
WBC 3.3 L
Hgb 14.9
Hct 43.9
Plt Count 113 L
Sodium 134 L
Potassium 3.5
Chloride 99
Carbon Dioxide 31 H
BUN 20
Creatinine 1.0
Glucose 100 H
Calcium 8.5
Vital Signs:
Vital Signs
Temp Pulse Resp BP Pulse Ox
98.2 F 83 16 80/55 94
03/10/25 07:52 03/10/25 10:04 03/10/25 07:52 03/10/25 10:04 03/10/25 10:04
I&O
03/09/25 03/10/25 03/11/25
06:59 06:59 06:59
Intake Total 240 / 240 720 / 720
Output Total 2200 / 2200
Balance -1960 / -1960 720 / 720
[2025-03-10] MEDS: DIOVAN 40 MG PO (21:55)
[2025-03-10] MEDS: FLUSH (NSS) 1 FLUSH IV (21:58)
[2025-03-10] MEDS: KCL 40 MEQ PO (22:27)
[2025-03-10] MEDS: MAGNESIUM OXIDE 500 MG PO (22:27)
[2025-03-11] VITALS (8 sets, daily range): BP systolic 94–123; BP diastolic 42–94; BMI 24.9
--- NOTE | 2025-03-11 00:13 | PTCARENOTE ---
Received pt at change of shift OOB in chair. Afib rhythm w/ PVC's, v-pacing on the monitor. HR in the 90's. pt denies any CP or SOB. Tele monitor alarmed 15-beat nonsustained ANTHONY Ferrara in room with pt. pt asymptomatic. Ed Elizabeth, CVPA made aware
and K/mag ordered. Administered per order--see MAR. Right brachial and radial intact and GERSON. Right femoral intact but ecchymotic, GERSON. Previous hematoma marked, still within previous marking, CV PA aware. Fall precautions maintained. Bed alarm on
and audible. Informed pt to call for assistance OOB. Call teran within reach.
[2025-03-11 04:16] LABS: Hematocrit 41.1 % (39.0-52.0); Hemoglobin 14.3 g/dL (13.0-18.0); Mean Corp Hgb Conc. 34.8 g/dL (33.0-37.0); Mean Corpuscular Volume 89.7 fL (80.0-94.0); Platelet Count 127 10^3/uL (130-400); Red Cell Dist. Width 13.9 % (11.5-14.5)
[2025-03-11 04:36] LABS: Blood Urea Nitrogen 21 mg/dl (9-20); Calcium 8.6 mg/dl (8.4-10.2); Carbon Dioxide 30 mmol/L (22-30); Chloride 100 mmol/L (98-107); Estimated Creatinine Clearance 65 ml/min; Glucose 109 mg/dl (70-99); Magnesium 2.0 mg/dl (1.6-2.3); Potassium 4.2 mmol/L (3.5-5.1); Sodium 135 mmol/L (135-145); eGFR > 60.00
--- NOTE | 2025-03-11 07:10 | W.PN.CD ---
Today's Communication / Plan
-
BP imroved Plan for continued valsartan rather than entresto
monitor weight and BP daily
renal profile later this week and weekly for 3 weeks.
If BP remains stable and patietn feels well with ambulation then reasonable to discharge from a cardiac standpoint
Impression / Plan
-
a/p: 79-year-old male with past medical history of dilated cardiomyopathy that had resolved but is now severely reduced EF 10 to 15%, hypertension, permanent A-fib on Eliquis, who is here for evaluation of chest pain. This does not appear to be ACS
in nature, however, given his new severely reduced ejection fraction likely heart failure will be admitted for further evaluation.
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
-Cardiomyopathy at a proportion to degree of coronary artery disease. Diffuse 80% LAD after diagonal. Plan for continued medical therapy for coronary artery disease and plan for optimization of treatment of heart failure and cardiomyopathy. PCWP
26 at time of cath 03/08/2025
- Continue carvedilol
Case management to assessesd cost for Entresto and SGLT2 inhibitor. Apparently has formed and $417 left and 2000 total of [id number] and once this is reached he will pay $0 for these meds. In the interim Entresto $81 a month Farxiga 138
Jardiance 145. I reviewed with patient and he is willing to pay the money for Entresto and Farxiga so they were initiated and valsartan was discontinued. due to lower BPs he was transitioned back to lowe dose valsartan
-IV Lasix stopped. Transitioning to oral. oral lasix. He was on PRN lasix at home per med list will changeto daily Lasix 20mg aday
-Note that in medication allergies hyperkalemia with MARGARITA inhibitor's as listed. Will need to continue to monitor on ARB and for this reason I would not add spironolactone at this time
-
A-fib
-Continue Eliquis. Coreg for rate control
Echo March 07, 2025 CONCLUSIONS
Dilated LV with severely reduced systolic function.
LVEF is 10 to 15% by visual estimation. Severe diffuse global hypokinesis.
Mildly dilated RV with normal systolic function.
Mild to moderate mitral regurgitation.
Mild aortic regurgitation.
Moderate tricuspid regurgitation.
Estimated pulmonary artery pressure of 50 mmHg assuming a right atrial pressure
of 3 mmHg.
Compared to prior from November 19, 2022, EF is now severely reduced, previously
normal, MR is now mild to moderate, previously mild, TR is now moderate,
previously mild and estimated PASP is mildly elevated at 50 mmHg.
Physical Exam
Vital Signs/Labs
Vital Signs
Temp Pulse Resp BP Pulse Ox
97.7 F 92 16 123/80 100
03/11/25 03:36 03/11/25 06:00 03/11/25 03:36 03/11/25 03:36 03/11/25 03:36
03/10/25 03/11/25 03/12/25
06:59 06:59 06:59
Actual Weight 82.9 kg
03/11/25 03:45
03/11/25 03:45
PT 19.6 Sec (11.4-14.6) H 03/07/25 12:44
INR 1.61 03/07/25 12:44
Magnesium 2.0 mg/dl (1.6-2.3) 03/11/25 03:45
03/07/25
12:44
Zao-A-Ppqobqhnehi Pept
Physical Exam
Constitutional: No acute distress
Cardiovascular: Rhythm/rate is irregular
GI: Non tender and Normal bowel sounds
Neuro/Psych: Alert
Data Reviewed
-
Date of Service: March 11, 2025
Medical Decision Making: Reviewed Test Results
X-Ray/CT/US/MRI/NUC/PET: Report Reviewed by me
Medical Tests (PFT, Pathology etc): Report Reviewed by me
Labs: Labs Reviewed by me
[2025-03-11] MEDS: ELIQUIS 5 MG PO (08:35)
[2025-03-11] MEDS: LOW STRENGTH ASPIRIN 81 MG PO (08:35)
[2025-03-11] MEDS: FARXIGA 10 MG PO (08:35)
[2025-03-11] MEDS: COREG 12.5 MG PO (08:35)
[2025-03-11] MEDS: LASIX 20 MG PO (08:35)
[2025-03-11] MEDS: DIOVAN 40 MG PO (08:36)
[2025-03-11] MEDS: XALATAN OPHTHALMIC SOLUTION 1 DROP BOTH EYES (08:38)
--- NOTE | 2025-03-11 11:57 | PTCARENOTE ---
Assumed care at 0700. Patient AO x 3. V-pacing with underlying A-fib, dependent edema improved, LLE +2, RLE +1. AICD left chest. Right groin cath site dressing dry, and hematoma resolving. Condom catheter dislodged, now using incontinence pads. OOB
in chair with rolling walker with assistance. Bed and chair alarms audible, call teran in reach
--- NOTE | 2025-03-11 13:52 | W.PN.HOSP.TC ---
Today's Communication/Plan
-
Discharge today
Assessment / Plan
Assessment / Plan
Physical Exam
General: No Apparent Distress
HEENT: NormoCephalic and Moist mucous membranes
Respiratory: Clear
Cardiac: S1/S2 and Irregular Rhythm
GI: Soft, Non Tender and Normal Bowel Sounds
Musculoskeletal: No Cyanosis, Edema, Left Lower Extremity and Edema, Right Lower Extremity
Skin: Warm and Dry
Neuro: Awake, Alert and AO x 3
Psych: Calm and Intact Judgment/Insight
Assessment/Plan
79-year-old male with hypertension, hyperlipidemia, permanent A-fib, history of dilated cardiomyopathy status post AICD, prostate cancer, type 2 diabetes mellitus, hemorrhagic CVA, BPPV, chronic back pain/lumbar radiculopathy, peripheral
polyneuropathy and gait disorder presented with dull, left-sided chest pain since yesterday late in the day. There were no alleviating or exacerbating factors to his chest pain. He denied any SOB, dizziness or any other symptoms on review of systems.
Presentation with Intermittent Chest Pain
History of dilated cardiomyopathy status post AICD
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
Acute HFrEF
- Aspirin 324 mg given in the ER
- IV Lasix 40 mg BID --> stopped; hold Lasix today given hypotension with SBP in the 80s, resume with PO Lasix 20 mg daily
- Cardiac cath took place on 03/08/25: severe LAD/diagonal disease, per Dr. Amaya, cardiomyopathy is likely mixed and given negative troponins, best first step here is medical optimization of heart failure with symptom
driven PCI down the line (probably as outpatient)
- Hypotension an issue with newly started low dose BID Entresto low dose BID; so switched back to Valsartan as of 03/11/25
- Continue Eliquis
- Continue Carvedilol
- Stop diltiazem given severely reduced ejection fraction
- Given patient is getting cardiac cath and has severely reduced EF, admit patient to and monitor in IVU
History of Hyperkalemia with MARGARITA-Inhibitors
- Need to continue to monitor BMP
- No Spironolactone at this time
Permanent Atrial fibrillation
- Continue Carvedilol
- Stopped [employer] Diltiazem given severely reduced EF
- Resume Eliquis (was held for cardiac cath)
- Monitor in IVU
Hypertension
- Continue beta zaida, but stop Diltiazem
Hyperlipidemia
Additional History
Prostate cancer
History of type 2 diabetes mellitus
Hemorrhagic CVA
BPPV
Chronic back pain/lumbar radiculopathy
Peripheral polyneuropathy
Gait disorder
History of surgeries/procedures: Ventricular shunt, cataract, prostate
DVT Prophylaxis: SCDs. Eliquis.
Code Status: Full Code
More than 30 minutes spent in discharge including
Final examination of the patient
Summarizing hospital stay
Instructions for continuing care to all relevant caregivers
Preparation of discharge records, prescriptions, and referral forms
Total time spent (in minutes): 38
Anticipated Discharge: Today
Subjective/Interval History
-
Date of Service: March 11, 2025
Patient was seen and examined. He denied any chest pain, SOB or any other symptoms or complaints. He wants to go home today, per him.
Objective Data
-
Labs:
Laboratory Results
03/11/25
03:45
WBC 4.2 L
Hgb 14.3
Hct 41.1
Plt Count 127 L
Sodium 135
Potassium 4.2
Chloride 100
Carbon Dioxide 30
BUN 21 H
Creatinine 1.0
Glucose 109 H
Calcium 8.6
Vital Signs:
Vital Signs
Temp Pulse Resp BP Pulse Ox
97.5 F 75 20 94/42 94
03/11/25 11:05 03/11/25 11:07 03/11/25 11:05 03/11/25 11:07 03/11/25 11:05
I&O
03/10/25 03/11/25 03/12/25
06:59 06:59 06:59
Intake Total 720 / 720 1200 / 1200
Output Total 425 / 425
Balance 720 / 720 775 / 775
--- NOTE | 2025-03-11 16:36 | W.DCSUMMARY ---
Discharge Summary
Discharge Data
Date of Admission: 03/07/25
Date of Discharge: 03/11/25
Total time spent discharging patient (in min): 38
-
Pending Results: No
Hospital Course
79-year-old male with past medical history of hyperkalemia with angiotensin-converting enzyme inhibitor class of medications, hypertension, hyperlipidemia, permanent A-fib, history of dilated cardiomyopathy status post AICD, prostate cancer, type 2
diabetes mellitus, hemorrhagic CVA, BPPV, chronic back pain/lumbar radiculopathy, peripheral polyneuropathy and gait disorder presented with dull, left-sided chest pain since the day prior to presentation. Patient's echocardiogram showed dilated
left ventricle with severely reduced systolic function; LVEF 10 to 15% by visual estimation; Severe diffuse global hypokinesis; Mildly dilated RV with normal systolic function; Mild to moderate mitral regurgitation; Mild aortic regurgitation;
Moderate tricuspid regurgitation; Estimated pulmonary artery pressure of 50 mmHg assuming a right atrial pressure of 3 mmHg; Compared to prior from November 19, 2022, EF is now severely reduced, previously normal, MR is now mild to moderate, previously
mild, TR is now moderate, previously mild and estimated PASP is mildly elevated at 50 mmHg.' Patient was given loading dose of Aspirin and started on intravenous Lasix. Eliquis was held in preparation of cardiac cath. Patient's Diltiazem was stopped
given his severely reduced ejection fraction. Cardiac cath was done on 03/08/25, and it showed, as per branch administrator catheterization report conclusions:
'1. Severe, technically one-vessel coronary artery disease but with involvement of a large territory (D1 function acts as a Ramus branch and the LCx and RCA territories are relatively small).
2. 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
3. No on hemodynamic pullback.
4. Overall, the degree of cardiomyopathy seems somewhat out of proportion to his coronary disease and while his presenting symptoms are anginal, they are atypical and troponin is negative (despite his cardiomyopathy). To me this suggests a mixed
ischemic and non-ischemic process. The benefit revascularization will need to be weighted against risk. I would advocate for initial optimization of medical therapy for HFrEF and consideration of revascularization in the future pending his course
and residual symptoms.'
Eliquis was resumed. It was recommended to start Valsartan 40 mg BID with eventual transition to Entresto (case management consult for Entresto and SGLT2i costs), and continue Lasix IV 40 mg BID, as well as daily Aspirin 81 mg daily and high
intensity statin for goal LDL<55. Given patient's history of hyperkalemia with angiotensin-converting enzyme inhibitor class of medications, Spironolactone was not added to patient's current Valsartan. Patient was later switched to Entresto. Given
patient's hypotension, Lasix was held for a day, and Entresto was switched back to Valsartan. Patient's blood pressure improved and he was recommended to use abdominal binder and EDUARDO stockings to help with orthostatic hypotension. Patient wanted to
go home and he was okay for discharge.
Discharge Plan
-
Patient Disposition: Home with Home Care
Discharge Diagnosis/Procedures: Small to moderate right-sided pleural effusion and Ill-defined bibasilar opacities, likely scarring versus atelectasis on chest x-ray
Presentation with Intermittent Chest Pain
History of dilated cardiomyopathy status post AICD
Acute Heart failure reduced ejection fraction EF 10 to 15%
History of Hyperkalemia with MARGARITA-Inhibitors
Permanent Atrial fibrillation
Hypertension
Hyperlipidemia
Prostate cancer
History of type 2 diabetes mellitus
Hemorrhagic CVA
BPPV
Chronic back pain/lumbar radiculopathy
Peripheral polyneuropathy
Gait disorder
History of surgeries/procedures: Ventricular shunt, cataract, prostate
Condition: Good
Diet: Low Fat, Low Cholesterol, Low Sodium, 2 Gram Sodium, Diabetic, Carb Controlled and Restrict fluids to 64 oz
Activity: As tolerated
Driving Restrictions: No driving
Blood Work: CBC, BMP and Magnesium with your primary care provider's office in 3 to 4 days from today (today is 03/11/25)
Other Services: VN
Specialty Instructions: Weigh Daily- Call MD for wt gain/loss 3 lbs overnight/5 lbs in 1 week
Activity Restrictions/Additional Instructions:
You need to get basic metabolic panel labwork this week and weekly for 3 weeks -- discuss with your primary care provider and branch administrator
You will need to get refills of your medications from your primary care provider and branch administrator.
Instructions: Orthostatic hypotension
Referrals:
Noy Aquino PA-C [Family Provider, Family Practice] - in less than 1 week
Referral Note: Hospitalization Follow-Up
Rommel Woods MD [Active, Cardiology] - in three to four weeks
Referral Note: Hospitalization Follow-Up
Additional Discharge Medication Instructions: Aspirin 81 mg daily is a new medication.
Dapagliflozin is a new medication.
Furosemide 20 mg is now daily, everyday.
Valsartan is a new medication.
Diltiazem stopped.
Prescriptions:
New
valsartan 40 mg Tablet
40 mg PO BID Qty: 60 1RF
dapagliflozin propanediol 10 mg Tablet
10 mg PO DAILY Qty: 30 1RF
furosemide 20 mg Tablet
20 mg PO DAILY Qty: 30 1RF
aspirin 81 mg Tablet,Chewable
81 mg PO DAILY Qty: 30 1RF
Continued
carvedilol 12.5 mg Tablet
12.5 mg PO BID
Lumigan 0.01 % Drops
1 drp BOTH EYES DAILY
abiraterone 250 mg tablet
500 mg PO DAILY
Eliquis 5 mg Tablet
5 mg PO BID
Discontinued
acetaminophen [Tylenol] 325 mg Tablet
325 mg PO BIDPRN PRN (Reason: mild pain)
diltiazem HCl 240 mg capsule,extended release 24hr
240 mg PO DAILY
furosemide 20 mg Tablet
20 mg PO .SEE BELOW PRN (Reason: edema)
Patient Comments:
03/07/2025, prescribed for pt. to take 1 tablet daily but pt. takes dailyprn.
Discharge Orders:
Discharge Patient (As Directed); Ordered 03/11/25
Ordered By: Chriss Orosco
Care Plan Goals
Care Plan Goals:
Problem: Readiness for enhanced knowledge related to diagnosis and treatment plan
Goal: Understand your diagnosis and treatment plan needs, including medications if applicable.
Instructions: Know your diagnosis, underlying causes and treatment plan options, including medications if applicable. Consult with your health care team to learn about your diagnosis and treatment plan, including medications if applicable.
Discharge Date and Time
Discharge Date/Time: 03/11/25 18:01
Print Language: [place]
--- NOTE | 2025-03-11 17:14 | PTCARENOTE ---
Patient discharged to home. IV and telemetry removed. Discharge teaching reviewed with patient, he verbalized understanding. Escorted to ani cardona assisted in his daughters home
== END 2025-03-11 18:01 | disposition home health service (06) | DRG 286 ==
LOC: IVU 20:14
PROVIDERS: Emergency Medicine; Nurse Practitioner Gerontology; Student in an Organized Health Care Education/Training Program; ADMITTING PHYSICIAN Hospitalist; CONSULT PHYSICIAN Internal Medicine Cardiovascular Disease; EMERGENCY PHYSICIAN Emergency Medicine; FAMILY PHYSICIAN Physician Assistant Medical
PROC: 4A023N8 Measurement of Cardiac Sampling and Pressure, Bilateral, Percutaneous Approach (ICD-10-PCS; 2025-03-08)
PROC: B2111ZZ Fluoroscopy of Multiple Coronary Arteries using Low Osmolar Contrast (ICD-10-PCS; 2025-03-08)
DX: I11.0 Hypertensive heart disease with heart failure (principal); I50.21 Acute systolic (congestive) heart failure; I48.21 Permanent atrial fibrillation; I25.119 Atherosclerotic heart disease of native coronary artery with unspecified angina pectoris; I42.0 Dilated cardiomyopathy; G47.00 Insomnia, unspecified; E78.00 Pure hypercholesterolemia, unspecified; G89.29 Other chronic pain; M54.16 Radiculopathy, lumbar region; I08.1 Rheumatic disorders of both mitral and tricuspid valves; I27.20 Pulmonary hypertension, unspecified; E11.36 Type 2 diabetes mellitus with diabetic cataract; E11.40 Type 2 diabetes mellitus with diabetic neuropathy, unspecified; R26.9 Unspecified abnormalities of gait and mobility; I95.9 Hypotension, unspecified; Z60.2 Problems related to living alone; Z96.651 Presence of right artificial knee joint; Z79.01 Long term (current) use of anticoagulants; Z85.46 Personal history of malignant neoplasm of prostate; Z86.73 Personal history of transient ischemic attack (TIA), and cerebral infarction without residual deficits; Z95.810 Presence of automatic (implantable) cardiac defibrillator; Z79.82 Long term (current) use of aspirin; Z87.891 Personal history of nicotine dependence; Z90.79 Acquired absence of other genital organ(s); Z88.8 Allergy status to other drugs, medicaments and biological substances; Z88.6 Allergy status to analgesic agent; Z91.012 Allergy to eggs
CPT/HCPCS: 71046; 80048; 80053; 81003; 81015; 83735; 83880; 84484; 85025; 85027; 85610; 87086; 93005; 93306; 93460; 97163; 99152; 99153; 99291; C1760; C1769; C1894; Q9957; Q9967

== ENCOUNTER 2025-03-17 12:50 | Inpatient (IN) | payer MEDICARE, OTHER, SELFPAY ==
[2025-03-17] VITALS (8 sets, daily range): BP systolic 121–145; BP diastolic 69–105; BMI 25.9; BMI 25.0
--- NOTE | 2025-03-17 10:46 | ED.GENMED ---
History of Present Illness
General
Chief Complaint: Weakness
Time Seen by Provider: 03/17/25 10:11
History of Present Illness
History of Present Illness:
79-year-old male with history of cardiomyopathy, HFrEF, hypertension, hyperlipidemia, paroxysmal A-fib on Eliquis status post pacemaker, and prior stroke presents to the emergency department for evaluation of generalized malaise and increasing
weakness since being discharged in the hospital. Of note he had been started on Farxiga at time of discharge. He reports he has been compliant with all of his medications. Reports nausea without vomiting, difficulty ambulating, and
lightheadedness. Also notes an episode of palpitations that occurred yesterday
Past History
Past History
ED Past Medical History: Arrthythmia (Atrial fibrillation), Cancer (Prostate), CVA (Hemorrhagic), HTN, Hypercholesterolemia and Other (Chronic back pain/lumbar radiculopathy, polyneuropathy, gait disorder)
ED Past Surgical History: Other (Ventricular shunt, cataract, prostate, pacemaker and AICD)
Patient has exhibited threatening behavior?: No
PSI?: No
Social History
Tobacco: Non-smoker
Alcohol: None
Personal:
Living: with family
Employment: Employed
Family History
Family History: Other (Noncontributory)
Review of Systems
Review of Systems
Allergies reviewed?: Yes
All Other Systems: ROS reviewed and negative except as documented in HPI and ROS
Phy Exam
Physical Exam
Physical Exam:
GEN: Well appearing, NAD, WDWN
HEENT: Oral mucosa moist, no scleral icterus
Cardiac: Irregular, controlled rate
Lung: No respiratory distress, no tachypnea, crackles in the bases bilaterally
MSK: No gross deformity or injuries, mild lower extremity edema uncertain if acute or chronic
Skin: Good color, no pallor or jaundice, no rashes
Neuro: AO x3, moves all extremities freely
Psych: Calm, cooperative
Course
Orders/Labs/Results
Orders:
Orders
03/17/25 10:20
Electrocardiogram (*1) Urgent
Reason for Study: Fatigue / Weakness
EKG- Treatment ONCE
03/17/25 10:41
Basic Metabolic Panel Urgent
Complete Blood Count/With Diff Urgent
Magnesium Urgent
Comment: ADD ON
NT-proBNP Urgent
Phosphorus Urgent
Comment: ADD ON
Troponin I Urgent
Vitamin D, 25-Oh Urgent
03/17/25 11:00
CR Chest - 2 Views Urgent
Comment:
Reason For Exam: weakness,CHF
03/17/25 11:45
Calcium Gluconate 2 gram/100mL [Calcium Gluconate] 2 gram in 100 ml IV ONCE
03/17/25 11:54
Potassium Urgent
03/17/25 12:28
Admit/Transfer Patient As Directed
Co-Sign Provider:
Level of Care: Inpatient admission
Assign to:: Telemetry
Physician / Group: clarita
Diagnosis: hypocalcemia
Reason for Telemetry: Arrhythmia
Date to Stop Telemetry: 03/20/25
Time to Stop Telemetry: 11:00
Reason for Hospitalization: hypocalcemia
Expected length of stay greater than two midnights?: Yes
ELOS- Estimated Length of Stay in days: 2
I certify the patient meets the requirements for IP care: Yes
PRN Pain Medication Management As Directed
May give lesser potent ordered pain med per pt: Yes
preference::
Protocol:: Medication orders for pain may be administered in a
manner that supports deferring to patient preference
when the pt is:
- Requesting an ordered lesser potent pain medication.
Least to most potent pain medications are defined
as: acetaminophen < NSAID < tramadol < opioids
(morphine, oxycodone, hydromorphone).
- Requesting a lesser dose of the same medication IF
ORDERED.
- Requesting a less intrusive route of administration
if both routes are prescribed by the provider (PO <
IV).
03/17/25 12:29
Code Status As Directed
Resuscitation Status: Full Code
03/17/25 14:13
Dextrose 50%-Water [Dextrose 50% Syringe] 12.5 grams IV [id number] PRN
Glucagon [GlucaGen] 1 mg IM PRN PRN
03/17/25 14:13
Add On- LAB Routine
Tests Added?: albumin, magnesium, phosphorus, pth, vitamin d
VTE Contraindication Routine
VTE Mechanical Device Contraindication: Medical Contraindication
Pharmocologic Contraindication: Medical Contraindication
Activity As Directed
Activity Level: As Tolerated
Bedside Glucose Monitoring As Directed
Frequency: AC&HS
Additional Instructions:: Change to q6h if pt on TPN, tube feeding or not eating
Vital Signs As Directed
Frequency: Per unit guidelines
03/17/25 Dinner
Cholesterol Lowering
At Your Request: Full Participation
Cholesterol Lowering: Sodium, 2 Gram
03/17/25 16:30
Insulin Aspart Corrective Low [Novolog Flexpen-Low Resistance] See Protocol SC AC
03/18/25 06:00
Complete Blood Count/With Diff IN AM
Comprehensive Metabolic Panel IN AM
Glycohemoglobin (HgbA1c) IN AM
03/20/25 11:00
DC Protocol for Telemetry ONCE
Abnormal Lab Results
03/17/25 03/17/25
10:41 11:54
WBC 3.4 L 10^3/uL
(4.8-10.8)
RBC 4.50 L 10^6/uL
(4.70-6.10)
RDW 14.6 H %
(11.5-14.5)
Plt Count 107 L 10^3/uL
(130-400)
MPV 12.3 H fL
(7.4-10.4)
Absolute Lymphs (auto) 1.1 L 10^3/uL
(1.2-3.4)
Potassium 5.3 H mmol/L
(3.5-5.1)
Chloride 112 H mmol/L
(98-107)
Carbon Dioxide 20 L mmol/L
(22-30)
BUN 22 H mg/dl
(9-20)
Calcium 6.7 L* mg/dl
(8.4-10.2)
03/17/25 10:41
03/17/25 11:54
Vital Signs
Initial and Last Documented VS:
Initial Vital Signs
Temp Pulse Resp BP Pulse Ox
97.5 F 88 22 130/82 97
03/17/25 10:16 03/17/25 10:16 03/17/25 10:16 03/17/25 10:16 03/17/25 10:16
Last Documented Vital Signs
Temp Pulse Resp BP Pulse Ox
98.2 F 81 20 143/69 96
03/17/25 14:14 03/17/25 14:14 03/17/25 14:14 03/17/25 14:14 03/17/25 14:55
MDM/Problems Addressed
MDM/Problems Addressed:
Patient's weakness is most likely on the basis of hypocalcemia however he has noted to have increased body weight and elevated BNP suggesting fluid retention, IV calcium given for repletion however diuresis withheld at this point given likelihood
this would worsen his hypocalcemia. Will admit to the hospitalist service for further management. Device interrogation performed showing no cardiac events
*Pulse Oximetry
SaO2: 97
Oxygen Mode of Delivery: Room air
Patient hypoxic: no
*Critical Care Note
Total Time (30-74mins, 75-104mins- exclusive of procedures): Not Applicable
ED Attending Note
-
Portions of this chart may have been created with voice recognition software.� Occasional wrong word or��sound alike� substitutions may have occurred due to the inherent limitations of voice recognition software.
Discharge Plan
Departure
Patient Disposition: Admit
Date of Disposition: 03/17/25
Time of Disposition: 12:08
Admit to: Telemetry
Presentation/result/management discussed w/ accepting MD/DO: Hospitalist
Discharge Problem:
Generalized weakness, Hypocalcemia
Interventions
Interventions:
*Risk Screen - Suicide Last Done: 03/17/25 10:16
*General Assessment Last Done: 03/17/25 10:16
*Neglect/Abuse Screening Last Done: 03/17/25 10:16
*ED- Fall Risk Assessment Last Done: 03/17/25 10:16
*ED COVID-19 Vaccine History Last Done: 03/17/25 10:16
*Nursing Disposition Last Done: 03/17/25 14:04
ED- Cardiac Assessment Last Done: 03/17/25 11:23
ED- Neurological Assessment Last Done: 03/17/25 11:23
ED- Pulmonary Assessment Last Done: 03/17/25 11:23
Discharge Date and Time
Discharge Date/Time: 03/17/25 14:05
[2025-03-17 11:10] LABS: Blood Urea Nitrogen 22 mg/dl (9-20); Carbon Dioxide 20 mmol/L (22-30); Chloride 112 mmol/L (98-107); Estimated Creatinine Clearance 81 ml/min; Glucose 92 mg/dl (70-99); Sodium 135 mmol/L (135-145); eGFR > 60.00
[2025-03-17 11:13] LABS: Hematocrit 41.3 % (39.0-52.0); Hemoglobin 13.9 g/dL (13.0-18.0); Mean Corp Hgb Conc. 33.7 g/dL (33.0-37.0); Mean Corpuscular Volume 91.8 fL (80.0-94.0); Red Cell Dist. Width 14.6 % (11.5-14.5)
[2025-03-17 11:14] LABS: Troponin I < 0.012 ng/ml
[2025-03-17 11:15] LABS: Calcium 6.7 mg/dl (8.4-10.2)
[2025-03-17 11:37] LABS: Nucleated Red Blood Cells % 0 % (-); Platelet Count 107 10^3/uL (130-400)
[2025-03-17] MEDS: CALCIUM GLUCONATE 100 IV (12:24)
--- NOTE | 2025-03-17 12:30 | HPS.HSE ---
Addendum entered and electronically signed by Nessa Back MD 03/17/25 16:05:
Patient with hyperkalemia, hold valsartan for now.
Original Note:
Family Physician
-
Family Physician: Noy Aquino PA-C
Chief Complaint
-
weakness
History of Present Illness
79-year-old male past medical history of dilated cardiomyopathy, HFrEF status post ICD, permanent atrial fibrillation on Eliquis, hypertension, hyperlipidemia, prostate cancer status post surgery, type 2 diabetes, hemorrhagic CVA, BPPV, chronic back
pain/lumbar radiculopathy, peripheral neuropathy, gait disorder, cataract surgery, presenting for generalized malaise and increasing weakness since being discharged. He complains of nausea without vomiting, difficulty ambulating and
lightheadedness. He had palpitations yesterday. He denies any chest pain. Has occasional shortness of breath with exertion. His lower extremity edema stable. He is not sure about weight gain. Denies any muscle cramping or numbness or tingling.
He was recently admitted from 03/07 to 03/11 after being admitted for left-sided chest pain. He was found to have ejection fraction of 10 to 15% with severe global hypokinesis on echocardiogram. He was started on aspirin and given Lasix. He
underwent cardiac catheterization which showed severe one-vessel coronary artery disease, severe elevated biventricular filling pressures and significantly reduced cardiac index. Cardiopathy was out of proportion to coronary disease suggesting
mixed ischemic and nonischemic process. Medical therapy was recommended. Eliquis was resumed and valsartan was started. He was also started on dapagliflozin.
He denies smoking or alcohol use.
Medical History
Past Medical History
Past Medical History: Reports Other (dilated cardiomyopathy, HFrEF status post ICD, permanent atrial fibrillation on Eliquis, hypertension, hyperlipidemia, prostate cancer status post surgery, type 2 diabetes, hemorrhagic CVA, BPPV, chronic back
pain/lumbar radiculopathy, peripheral neuropathy, gait disorder, cataract surgery)
Past Surgical History: Reports None
Social History
Tobacco: Non-smoker
Alcohol: None
Drug: None
Family History
Family History: Not pertinent
Allergies / Home Medications
Allergies reflects when Allergies were last updated in [facility].
Home Medications with original date entered in [facility]
Allergy/Medication List:
Allergies
Allergy/AdvReac Type Severity Reaction Status Date / Time
ERASMO Inhibitors (Erasmo Allergy hyperkalemi Verified 03/07/25 12:13
Inhibitors) a
egg (Egg) Allergy upset Verified 03/07/25 12:13
stomach/NAUSEA
gabapentin Allergy 'spacey' Verified 03/08/25 16:03
lisinopril Allergy Unknown Verified 03/07/25 12:13
lorazepam Allergy hallucinati Verified 03/07/25 12:13
ons,paranoi
a
NSAIDS (Non-Steroidal Allergy Unknown Verified 03/08/25 16:03
Anti-Inflamma (NSAIDS
(Non-Steroidal
Anti-Inflammatory Drug))
warfarin sodium (From Allergy hemhoragic Verified 03/08/25 16:03
Coumadin) stroke hx
Home Medications
abiraterone 250 mg tablet 500 mg PO DAILY 03/07/25
apixaban 5 mg tablet (Eliquis) 5 mg PO BID 03/07/25
bimatoprost 0.01 % eye drops (Lumigan) 1 drp BOTH EYES DAILY 03/07/25
carvedilol 12.5 mg tablet 12.5 mg PO BID 03/07/25
aspirin 81 mg chewable tablet 81 mg PO DAILY #30 tabs 03/11/25
dapagliflozin propanediol 10 mg tablet 10 mg PO DAILY #30 tabs 03/11/25
furosemide 20 mg tablet 20 mg PO DAILY #30 tabs 03/11/25
valsartan 40 mg tablet 40 mg PO BID #60 tabs 03/11/25
Review of Systems
-
History Source: Patient
A 12 point ROS was completed and negative except as noted: Yes
Constitutional: Reports No Symptoms
EENT: Reports No Symptoms
Respiratory: Reports See HPI
Cardiac: Reports See HPI
Abdomen/GI: Reports No Symptoms
: Reports No Symptoms
Musculoskeletal: Reports No Symptoms
Skin: Reports No Symptoms
Neurological: Reports No Symptoms
Endocrine: Reports No Symptoms
Hematologic/Lymphatic: Reports No Symptoms
Psych: Reports No Symptoms
Physical Exam
Vital Signs
Vital Signs
Temp Pulse Resp BP Pulse Ox
97.5 F 111 20 145/105 95
03/17/25 10:16 03/17/25 11:15 03/17/25 11:15 03/17/25 11:00 03/17/25 11:23
Physical Exam
General: Well Developed, Well Nourished and No Apparent Distress
HEENT: NormoCephalic, Moist mucous membranes and Atraumatic
Respiratory: Clear
Cardiac: S1/S2, Regular Rhythm and Peripheral Edema; No Murmur or Rub
GI: Soft, Non Tender, Non Distended and Normal Bowel Sounds; No Organomegaly
Rectal: Deferred by Provider
Musculoskeletal: No Clubbing, No Cyanosis and No Edema
Skin: No Rash
Neuro: Nonfocal/grossly intact
Laboratory Results
-
03/17/25 10:41
Laboratory Results
Total Bilirubin Cancelled 03/17/25 10:41
AST Cancelled 03/17/25 10:41
ALT Cancelled 03/17/25 10:41
Alkaline Phosphatase Cancelled 03/17/25 10:41
Troponin I < 0.012 ng/ml 03/17/25 10:41
Data Reviewed
-
Lab Data: Labs Reviewed by me
Old Records: Reviewed
Impression/Plan
-
IMPRESSION:
PLAN:
# Weakness secondary to severe hypocalcemia likely exacerbated by recent Lasix
- Check albumin, PTH, vitamin D, magnesium, phosphorus
- Calcium repletion
- Telemetry monitoring for arrhythmias
#Dilated cardiomyopathy/HFrEF status post ICD
-Ejection fraction of 10 to 15%
- Cardiac BNP of greater than 27,000 from 19,000, suggesting mild increase in volume overload although not in acute heart failure currently
- Chest x-ray does not appear to show pulmonary edema, report pending
- Continue Coreg
- Continue dapagliflozin
- Continue Lasix
Single-vessel CAD
- Continue aspirin
Chronic leukopenia
Recent thrombocytopenia
Permanent atrial fibrillation
- Continue Eliquis
Essential hypertension
- Continue valsartan
History of hyperkalemia secondary to ERASMO inhibitors
Hyperlipidemia
Prostate cancer status post surgery
- Continue abiraterone
Type 2 diabetes
-continue dapaglifozin
-ISS
History of hemorrhagic CVA
BPPV
Chronic back pain/lumbar colopathy
Peripheral neuropathy
Gait disorder
Cataract surgery
History of ventricular shunt
Full code
DVT prophylaxis�Eliquis
Cardiac diet
[2025-03-17 12:53] LABS: Potassium 5.3 mmol/L (3.5-5.1)
--- NOTE | 2025-03-17 13:12 | CM ---
CM reviewed chart and met with pt bedside in ED. Lives alone in 1 story home, no MEME.
Independent in ADLs and personal care, uses RW for ambulation. Daughter lives nearby and assists as needed.
Current with [facility] since recent admission.
PCP: pt does not recall her name, did see her recently
Pharmacy: [facility]
Anticipate DC home with VN.
[2025-03-17 16:35] LABS: Glucose - Point of Care 109 mg/dl (70-99)
[2025-03-17 16:40] LABS: Calcium 9.2 mg/dl (8.4-10.2); Magnesium 2.1 mg/dl (1.6-2.3)
[2025-03-17 17:03] LABS: Vitamin D, 25-OH*** 15.6 ng/mL (30-80)
[2025-03-17] MEDS: ELIQUIS 5 MG PO (20:04)
[2025-03-17] MEDS: COREG 12.5 MG PO (20:04)
[2025-03-17 21:46] LABS: Glucose - Point of Care 136 mg/dl (70-99)
[2025-03-18 03:00] VITALS: BP 122/80
[2025-03-18 05:58] LABS: Hematocrit 42.5 % (39.0-52.0); Hemoglobin 14.6 g/dL (13.0-18.0); Mean Corp Hgb Conc. 34.4 g/dL (33.0-37.0); Mean Corpuscular Volume 90.4 fL (80.0-94.0); Nucleated Red Blood Cells % 0 % (-); Platelet Count 101 10^3/uL (130-400); Red Cell Dist. Width 14.4 % (11.5-14.5)
[2025-03-18 06:22] LABS: ALT (SGPT) < 10 U/L (0-50); AST (SGOT) 22 U/L (17-59); Albumin 3.5 g/dl (3.5-5.0); Alkaline Phosphatase 62 U/L (38-126); Blood Urea Nitrogen 29 mg/dl (9-20); Calcium 8.9 mg/dl (8.4-10.2); Carbon Dioxide 22 mmol/L (22-30); Chloride 105 mmol/L (98-107); Estimated Creatinine Clearance 54 ml/min; Glucose 116 mg/dl (70-99); Potassium 5.4 mmol/L (3.5-5.1); Sodium 134 mmol/L (135-145); Total Protein 6.2 g/dl (6.3-8.2); eGFR > 60.00
[2025-03-18 07:00] VITALS: BP 134/88
[2025-03-18] MEDS: ELIQUIS 5 MG PO ×2 (07:56→20:52)
[2025-03-18] MEDS: FARXIGA 10 MG PO (07:56)
[2025-03-18] MEDS: LOW STRENGTH ASPIRIN 81 MG PO (07:56)
[2025-03-18] MEDS: LASIX 20 MG PO (07:56)
[2025-03-18] MEDS: COREG 12.5 MG PO ×2 (07:56→20:52)
[2025-03-18] MEDS: ALPHAGAN P 0.1% EYE DROPS 1 DROP BOTH EYES (07:57)
[2025-03-18 08:04] LABS: Glucose - Point of Care 120 mg/dl (70-99)
--- NOTE | 2025-03-18 09:29 | W.PN.HOSP.TC ---
Addendum entered and electronically signed by Domo Ferreira MD 03/18/25 09:49:
Calcium better
elevated PTH at 125
Original Note:
Today's Communication/Plan
-
Cardio and Nephro consults
Lokelma x 1
follow labs
Assessment / Plan
Assessment / Plan
# Weakness secondary to severe hypocalcemia likely exacerbated by recent Lasix
- Check albumin, PTH, vitamin D, magnesium, phosphorus
- Calcium repletion
- Telemetry monitoring for arrhythmias
hyperkalemia
will consult nephro
follow labs, Blanc[facility]
#Dilated cardiomyopathy/HFrEF status post ICD
-Ejection fraction of 10 to 15%
- Cardiac BNP of greater than 27,000 from 19,000, suggesting mild increase in volume overload although not in acute heart failure currently
- Chest x-ray does not appear to show pulmonary edema, report pending
- Continue Coreg
- Continue dapagliflozin
- Continue Lasix
consult cardio
Single-vessel CAD
- Continue aspirin
Chronic leukopenia
Recent thrombocytopenia
Permanent atrial fibrillation
- Continue Eliquis
Essential hypertension
- valsartan. Defer to cardio benefits vs risks of continuation of ARB
History of hyperkalemia secondary to MARGARITA inhibitors
Hyperlipidemia
Prostate cancer status post surgery
- Continue abiraterone
Type 2 diabetes
-continue dapaglifozin
-ISS
History of hemorrhagic CVA
BPPV
Chronic back pain/lumbar colopathy
Peripheral neuropathy
Gait disorder
physical therapy consult
Cataract surgery
History of ventricular shunt
Full code
DVT prophylaxis�Eliquis
Cardiac diet
Anticipated Discharge: > 48 hours
Subjective/Interval History
-
Date of Service: March 18, 2025
Feeling better than when admitted
Objective Data
-
Labs:
Laboratory Results
03/18/25
05:18
WBC 3.2 L
Hgb 14.6
Hct 42.5
Plt Count 101 L
Sodium 134 L
Potassium 5.4 H
Chloride 105
Carbon Dioxide 22
BUN 29 H
Creatinine 1.2
Glucose 116 H
Calcium 8.9
Total Bilirubin 1.2
AST 22
ALT < 10
Alkaline Phosphatase 62
Vital Signs:
Vital Signs
Temp Pulse Resp BP Pulse Ox
97.6 F 84 17 134/88 95
03/18/25 07:00 03/18/25 07:56 03/18/25 07:00 03/18/25 07:56 03/18/25 07:00
I&O
03/17/25 03/18/25 03/19/25
06:59 06:59 06:59
Intake Total 480 / 480 180 / 180
Balance 480 / 480 180 / 180
Review of Systems
-
History Source: Patient and Coordinated Provider
Constitutional: Denies Fever
EENT: Reports No Symptoms Reported
Respiratory: Reports No Symptoms
Cardiac: Reports No Symptoms
Abdomen/GI: Reports No Symptoms
Genitourinary: Reports No Symptoms
Physical Exam
-
General: Well Developed, Well Nourished and No Apparent Distress
HEENT: Normocephalic, Atraumatic and Moist Mucous Membranes
Respiratory: Clear to Auscultation; Negative Wheezes, Rales or Rhonchi
Cardiac: Regular Rhythm and S1/S2
GI: Soft, Nontender and Nondistended
Musculoskeletal: Edema, Right Lower Extrem and Edema, Left Lower Extrem
Skin: Rash (lower extremities stasis deermatitis)
Neuro: Awake and Alert
--- NOTE | 2025-03-18 09:42 | CON.CAR ---
Consultation
Consultation Request
Date/Time Consultation Requested: 03/18/2025
Date/Time Consultation Performed: 03/18/2025
Reason for Consultation: CHF
Medical History
-
Chief Complaint: Weakness and palpitations
History of Present Illness:
79-year-old gentleman with a history of dilated cardiomyopathy with HFrEF and LVEF of 10% status post ICD, permanent atrial fibrillation on Eliquis, hypertension, hyperlipidemia, prostate cancer s/p surgery, DM�2, hemorrhagic CVA, BPPV, chronic back
pain with lumbar radiculopathy, peripheral neuropathy, gait disorders and history of cataracts who presented to the hospital with presyncope and palpitations that started on Wednesday. He was reporting difficulty ambulation and lightheadedness on the
day of presentation. He also reported significant increased swelling in the lower extremities with increased edema.
.
His echo done earlier this month shows LVEF of 10% with severe global hypokinesis. He underwent cardiac catheterization that showed severe one-vessel coronary artery disease with severely elevated biventricular filling pressure and reduced cardiac
output/index. Patient's cardiomyopathy was out of proportion for the coronary artery disease suggesting mixed ischemic and nonischemic cardiomyopathy. Mostly dilated cardiomyopathy.
.
Patient was started on GDMT but had hypotension and Entresto was switched to valsartan only. He was also having significant uah-gj-qdhlqx expenditure for his home medications for heart failure including Farxiga and Eliquis.
.
During his workup in the ER patient was noted to have significantly elevated BNP and hypocalcemia. Patient last provide BNP was 19,000 on 03/07 during his previous hospitalization but today he presented at more than 27,000. His baseline is around
2000.Troponin was negative.
Past Medical History
Past Medical History: Arrhythmias (Pulmonary atrial fibrillation), CAD (Single-vessel coronary disease.), CHF (Mixed ischemic/nonischemic cardiomyopathy mostly dilated cardiomyopathy. EF 10%.), CVA, HTN and NIDDM
Past Surgical History: Other (tkr, prostatectomy, left inguinal hernia repair, laminectomy.))
Social History
Tobacco: Former Smoker
Alcohol: None
Drug: None
Personal:
Living: Alone
Family History
Family History: Reviewed & Not Pertinent
Allergies / Home Medications
Allergy/AdvReac Type Severity Reaction Status Date / Time
ERASMO Inhibitors (Erasmo Allergy hyperkalemi Verified 03/07/25 12:13
Inhibitors) a
egg (Egg) Allergy upset Verified 03/07/25 12:13
stomach/NAUSEA
gabapentin Allergy 'spacey' Verified 03/08/25 16:03
lisinopril Allergy Unknown Verified 03/07/25 12:13
lorazepam Allergy hallucinati Verified 03/07/25 12:13
ons,paranoi
a
NSAIDS (Non-Steroidal Allergy Unknown Verified 03/08/25 16:03
Anti-Inflamma (NSAIDS
(Non-Steroidal
Anti-Inflammatory Drug))
warfarin sodium (From Allergy hemhoragic Verified 03/08/25 16:03
Coumadin) stroke hx
�Medication �Instructions �Recorded �Confirmed �Type
abiraterone 250 mg tablet 500 mg PO DAILY Cancer 03/07/25 03/17/25 History
apixaban 5 mg tablet (Eliquis) 5 mg PO BID Blood Clot 03/07/25 03/17/25 History
Prevention/Tx
bimatoprost 0.01 % eye drops 1 drp BOTH EYES DAILY Eye Condition 03/07/25 03/17/25 History
(Lumigan)
carvedilol 12.5 mg tablet 12.5 mg PO BID Heart 03/07/25 03/17/25 History
Disease/Condition
aspirin 81 mg chewable tablet 81 mg PO DAILY Blood Clot 03/17/25 03/17/25 History
Prevention/Tx
dapagliflozin propanediol 10 mg 10 mg PO DAILY Heart Failure 03/17/25 03/17/25 History
tablet
furosemide 20 mg tablet 20 mg PO DAILY Fluid 03/17/25 03/17/25 History
Retention/Swelling
valsartan 40 mg tablet 40 mg PO BID Blood Pressure 03/17/25 03/17/25 History
Review of Systems
-
All other systems: Negative unless noted
Physical Exam
Vital Signs
Temp Pulse Resp BP Pulse Ox
97.6 F 84 17 134/88 95
03/18/25 07:00 03/18/25 07:56 03/18/25 07:00 03/18/25 07:56 03/18/25 07:00
Lab Results
03/18/25 05:18
03/18/25 05:18
Troponin I < 0.012 ng/ml 03/17/25 10:41
Qvr-P-Jyzbibsbfkv Pept > 27612 pg/ml 03/17/25 10:41
Physical Exam
General: Well Developed, Well Nourished and No Apparent Distress
HEENT: Normocephalic, Anicteric and Moist Mucous Membranes
Respiratory: Crackles and Non Labored Respirations
Cardiac: S1/S2, Irregular Rhythm, Peripheral Edema and JVD
GI: Soft, Non Distended and Normal Bowel Sounds
Musculoskeletal: No Clubbing, No Cyanosis and No Edema
Skin: Warm and Dry
Neuro: Awake and Alert
Psych: Confused
Impression / Plan
-
79-year-old male with past medical history of dilated cardiomyopathy that had resolved but is now severely reduced EF 10 to 15%, hypertension, permanent A-fib on Eliquis, who is here for evaluation of chest pain. This does not appear to be ACS in
nature, however, given his new severely reduced ejection fraction likely heart failure will be admitted for further evaluation.
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
- Right and left heart cath 03/08/2025
- Severe, technically one-vessel coronary artery disease but with involvement of a large territory (D1 function acts as a Ramus branch and the LCx and RCA territories are relatively small).
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
- GDMT started.
- Aspirin, Farxiga, Lasix, Coreg, valsartan
- Significantly fluid overloaded now with JVD and lower extremity edema along with elevated BNP. CXR did not show significant vascular congestion.
- Continue diuresis with Lasix 40 mg IV.
-Patient's valsartan was held at the time of admission but has elevated blood pressure. Will resume valsartan 40 mg for now. If patient tolerates it well, can be increased to 40 twice daily (home dose)
Hypertension
- As above
A-fib
- Hold Eliquis in anticipation of heart cath continue Coreg stop diltiazem
Echo March 07, 2025 CONCLUSIONS
Dilated LV with severely reduced systolic function.
LVEF is 10 to 15% by visual estimation. Severe diffuse global hypokinesis.
Mildly dilated RV with normal systolic function.
Mild to moderate mitral regurgitation.
Mild aortic regurgitation.
Moderate tricuspid regurgitation.
Estimated pulmonary artery pressure of 50 mmHg assuming a right atrial pressure
of 3 mmHg.
Compared to prior from November 19, 2022, EF is now severely reduced, previously
normal, MR is now mild to moderate, previously mild, TR is now moderate,
previously mild and estimated PASP is mildly elevated at 50 mmHg.
Data Reviewed
-
EKG: Tracing Personally Visualized and interpreted, Report Reviewed by me and Discussed with Physician
Radiology: Report Reviewed by me
Medical Tests (Nuc Med, Echo etc): Image Personally Visualized and interpreted, Report Reviewed by me, Discussed with Physician and Discussed with Patient
Labs: Labs Reviewed by me and Discussed with Physician
Old Records: Reviewed
[2025-03-18] MEDS: LOKELMA 5 GRAM PO (10:45)
[2025-03-18 11:00] VITALS: BP 108/62
[2025-03-18 11:34] LABS: Glucose - Point of Care 126 mg/dl (70-99)
[2025-03-18] MEDS: DIOVAN 40 MG PO (11:56)
[2025-03-18 15:00] VITALS: BP 130/84
--- NOTE | 2025-03-18 15:05 | W.CON.NEPH ---
Consultation
-
Date/Time Consultation Requested: March 18, 2025 at 9 AM
Date/Time Consultation Performed: March 18, 2025 at 1 PM
Requesting Provider: Domo Ferreira
Performing Provider: Dr. Henning
Reason for Consultation: Hypocalcemia and hyperkalemia
Medical History
-
Chief Complaint: Hypocalcemia
History of Present Illness:
79-year-old male past medical history of dilated cardiomyopathy, HFrEF status post ICD, permanent atrial fibrillation on Eliquis, hypertension, hyperlipidemia, prostate cancer status post surgery, type 2 diabetes, hemorrhagic CVA, BPPV, chronic back
pain/lumbar radiculopathy, peripheral neuropathy, gait disorder, cataract surgery, presenting for generalized malaise and increasing weakness
Renal consult for hypocalcemia 6.7 and mild hyperkalemia.
Recently discharged for cardiomyopathy has got ejection fraction of 10 to 15% on Lasix, SGLT2 inhibitor and valsartan
Past Medical History
Past medical history of dilated cardiomyopathy, HFrEF status post ICD, permanent atrial fibrillation on Eliquis, hypertension, hyperlipidemia, prostate cancer status post surgery, type 2 diabetes, hemorrhagic CVA, BPPV, chronic back pain/lumbar
radiculopathy, peripheral neuropathy, gait disorder, cataract surgery,
Social History
Tobacco: Non-Smoker
Alcohol: None
Family History
Family History: Not Pertinent
Allergies / Home Medications
Allergy/AdvReac Type Severity Reaction Status Date / Time
ERASMO Inhibitors (Erasmo Allergy hyperkalemi Verified 03/07/25 12:13
Inhibitors) a
egg (Egg) Allergy upset Verified 03/07/25 12:13
stomach/NAUSEA
gabapentin Allergy 'spacey' Verified 03/08/25 16:03
lisinopril Allergy Unknown Verified 03/07/25 12:13
lorazepam Allergy hallucinati Verified 03/07/25 12:13
ons,paranoi
a
NSAIDS (Non-Steroidal Allergy Unknown Verified 03/08/25 16:03
Anti-Inflamma (NSAIDS
(Non-Steroidal
Anti-Inflammatory Drug))
warfarin sodium (From Allergy hemhoragic Verified 03/08/25 16:03
Coumadin) stroke hx
�Medication �Instructions �Recorded �Confirmed �Type
abiraterone 250 mg tablet 500 mg PO DAILY Cancer 03/07/25 03/17/25 History
apixaban 5 mg tablet (Eliquis) 5 mg PO BID Blood Clot 03/07/25 03/17/25 History
Prevention/Tx
bimatoprost 0.01 % eye drops 1 drp BOTH EYES DAILY Eye Condition 03/07/25 03/17/25 History
(Lumigan)
carvedilol 12.5 mg tablet 12.5 mg PO BID Heart 03/07/25 03/17/25 History
Disease/Condition
aspirin 81 mg chewable tablet 81 mg PO DAILY Blood Clot 03/17/25 03/17/25 History
Prevention/Tx
dapagliflozin propanediol 10 mg 10 mg PO DAILY Heart Failure 03/17/25 03/17/25 History
tablet
furosemide 20 mg tablet 20 mg PO DAILY Fluid 03/17/25 03/17/25 History
Retention/Swelling
valsartan 40 mg tablet 40 mg PO BID Blood Pressure 03/17/25 03/17/25 History
Review of Systems
-
Generalized weakness some mild shortness of breath moderate lower extremity swelling
All other systems: Negative unless noted
Physical Exam
Vital Signs
Vital Signs
Temp Pulse Resp BP Pulse Ox
98.6 F 70 18 115/69 97
03/18/25 11:00 03/18/25 11:00 03/18/25 11:00 03/18/25 11:56 03/18/25 11:00
Lab Results
WBC 3.2 10^3/uL (4.8-10.8) L 03/18/25 05:18
RBC 4.70 10^6/uL (4.70-6.10) 03/18/25 05:18
Hgb 14.6 g/dL (13.0-18.0) 03/18/25 05:18
Hct 42.5 % (39.0-52.0) 03/18/25 05:18
Plt Count 101 10^3/uL (130-400) L 03/18/25 05:18
Sodium 134 mmol/L (135-145) L 03/18/25 05:18
Potassium 5.4 mmol/L (3.5-5.1) H 03/18/25 05:18
Chloride 105 mmol/L (98-107) 03/18/25 05:18
Carbon Dioxide 22 mmol/L (22-30) 03/18/25 05:18
BUN 29 mg/dl (9-20) H 03/18/25 05:18
Creatinine 1.2 mg/dL (0.7-1.3) 03/18/25 05:18
eGFR > 60.00 03/18/25 05:18
Glucose 116 mg/dl (70-99) H 03/18/25 05:18
Calcium 8.9 mg/dl (8.4-10.2) 03/18/25 05:18
Phosphorus 3.7 mg/dl (2.5-4.5) 03/17/25 16:22
Ohe-A-Ucaoblzdhmb Pept > 62224 pg/ml 03/17/25 10:41
Albumin 3.5 g/dl (3.5-5.0) 03/18/25 05:18
Physical Exam
General no acute distress
HEENT no cephalic atraumatic extraocular muscle intact no scleral icterus no JVD neck supple
lungs clear to auscultation bilateral
heart regular S1-S2 positive
abdomen soft nontender positive bowel sounds
extremities 2 edema pulses present bilateral
Neurologically nonfocal alert and oriented x 3
Skin no lesions no abrasions no petechiae
Psych normal affect no bizarre behavior
Data Reviewed
-
Radiology: Image Personally Visualized and interpreted
Labs: Labs Reviewed by me and Discussed with Patient
Assessment/Plan
-
79-year-old male past medical history of dilated cardiomyopathy, HFrEF status post ICD, permanent atrial fibrillation on Eliquis, hypertension, hyperlipidemia, prostate cancer status post surgery, type 2 diabetes, hemorrhagic CVA, BPPV, chronic back
pain/lumbar radiculopathy, peripheral neuropathy, gait disorder, cataract surgery, presenting for generalized malaise and increasing weakness
Renal consult for hypocalcemia 6.7 and mild hyperkalemia.
Recently discharged for cardiomyopathy has got ejection fraction of 10 to 15% on Lasix, SGLT2 inhibitor and valsartan
Impression.
Hypocalcemia
Vitamin D deficiency
Cardiomyopathy 10 to 15%
Type 2 diabetes
Atrial fibrillation
Plan.
Calcium improved with supplement= PTH elevated 125 consistent with secondary hyperparathyroidism
Start vitamin D ergocalciferol.
Check phosphorus level
Continue Lasix.
Status post Lokelma for mild hyperkalemia= monitor
Okay to continue valsartan
[2025-03-18] MEDS: DRISDOL (VITAMIN D2) 50000 UNITS PO (16:25)
[2025-03-18 17:16] LABS: Glucose - Point of Care 111 mg/dl (70-99)
[2025-03-18 19:00] VITALS: BP 104/52
[2025-03-18 21:31] LABS: Glucose - Point of Care 111 mg/dl (70-99)
[2025-03-18 23:00] VITALS: BP 114/68
[2025-03-19 05:50] LABS: Hematocrit 42.6 % (39.0-52.0); Hemoglobin 14.2 g/dL (13.0-18.0); Mean Corp Hgb Conc. 33.3 g/dL (33.0-37.0); Mean Corpuscular Volume 91.6 fL (80.0-94.0); Nucleated Red Blood Cells % 0 % (-); Platelet Count 123 10^3/uL (130-400); Red Cell Dist. Width 14.5 % (11.5-14.5)
[2025-03-19 06:03] LABS: Blood Urea Nitrogen 30 mg/dl (9-20); Calcium 8.8 mg/dl (8.4-10.2); Carbon Dioxide 23 mmol/L (22-30); Chloride 105 mmol/L (98-107); Estimated Creatinine Clearance 65 ml/min; Glucose 106 mg/dl (70-99); Potassium 4.5 mmol/L (3.5-5.1); Sodium 134 mmol/L (135-145); eGFR > 60.00
[2025-03-19 07:51] VITALS: BP 135/86
[2025-03-19 07:54] LABS: Glucose - Point of Care 105 mg/dl (70-99)
--- NOTE | 2025-03-19 08:03 | W.PN.CD ---
Addendum entered and electronically signed by Jonathan Kramer MD 03/19/25 10:18:
I saw and examined the patient.
The RADIOCHEMICAL TECHNICIAN's note was reviewed and I agree with the note.
Comment: Feeling much improved would like to go home; OK to d/c from cards perspective
Original Note:
Today's Communication / Plan
-
CHF- continue Farxiga, valsartan (currently lower dosing due to hyperkalemia presentation), coreg, and Lasix
CAD- continue ASA, add statin
AFIB- continue Coreg and Eliquis
Impression / Plan
-
79-year-old male with past medical history of dilated cardiomyopathy that had resolved but is now severely reduced EF 10 to 15%, hypertension, permanent A-fib on Eliquis who came in for evaluation after he had nausea and weakness. He was admitted
for further evaluation. He received Lokelma for hypokalemia, as well as calcium replacement for hypocalcemia. [employer] Pit Supervisor is Dr. Shaw.
Heart failure with reduced ejection fraction EF 10-15%: chronic, stable
-does not appear volume overloaded today to my assessment. No SOB. Weight down.
-continue Farxiga, Coreg, valsartan, Lasix. Entresto dropped BP too much per notes.
-valsartan currently at lower dose due to hyperkalemia, which has now resolved- hopefully can further adjust meds as tolerated as OP.
CAD:
-no CP
-recent cath as below
-continue ASA, add statin
Hypertension:
-stable
-continue BB and ARB and monitor
Afib, permanent:
-stable, rate-controlled. Continue BB and Eliquis.
Subjective:
Feeling better than he has felt in a while. Hoping to go home today. Denies SOB. OOB to chair.
Data:
Echo March 07, 2025: Dilated LV with severely reduced systolic function. LVEF is 10 to 15% by visual estimation. Severe diffuse global hypokinesis. Mildly dilated RV with normal systolic function. Mild to moderate mitral regurgitation. Mild aortic
regurgitation.Moderate tricuspid regurgitation. Estimated pulmonary artery pressure of 50 mmHg assuming a right atrial pressure of 3 mmHg.
Right and left heart cath 03/08/2025: Severe, technically one-vessel coronary artery disease but with involvement of a large territory (D1 function acts as a Ramus branch and the LCx and RCA territories are relatively small). Severely elevated
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
Physical Exam
Vital Signs/Labs
Vital Signs
Temp Pulse Resp BP Pulse Ox
97.9 F 84 16 135/86 97
03/19/25 07:51 03/19/25 07:51 03/19/25 07:51 03/19/25 07:51 03/19/25 07:51
03/18/25 03/19/25 03/20/25
06:59 06:59 06:59
Actual Weight 83.642 kg
03/19/25 05:11
03/19/25 05:11
Magnesium 2.1 mg/dl (1.6-2.3) 03/17/25 16:22
03/17/25
10:41
Zyi-L-Udcumpoukyy Pept > 98935
LAB Results
03/17/25
10:41
Troponin I < 0.012
Physical Exam
Constitutional: No acute distress
EENT: Anicteric
Cardiovascular: Rhythm/rate is irregular and Pedal edema present (chronic, mild stable per patient)
Respiratory: Respiratory effort normal and Lungs clear to auscul.
Neuro/Psych: AO x 3
Data Reviewed
-
Date of Service: March 19, 2025
EKG: Other (AFIB on tele)
Labs: Labs Reviewed by me
--- NOTE | 2025-03-19 08:24 | VNURNOTE ---
Chart reviewed. Patient is current with [facility]. Will continue to follow hospital course and DC plans.
[2025-03-19] MEDS: LOW STRENGTH ASPIRIN 81 MG PO (08:53)
[2025-03-19] MEDS: FARXIGA 10 MG PO (08:53)
[2025-03-19] MEDS: DIOVAN 40 MG PO (08:53)
[2025-03-19] MEDS: ALPHAGAN P 0.1% EYE DROPS 1 DROP BOTH EYES (08:54)
[2025-03-19] MEDS: ELIQUIS 5 MG PO (08:54)
[2025-03-19] MEDS: COREG 12.5 MG PO (08:54)
[2025-03-19] MEDS: LASIX 40 MG IV (08:57)
[2025-03-19] MEDS: LASIX PO (09:36)
--- NOTE | 2025-03-19 11:06 | W.PN.NEPH.PH ---
Today's Communication / Plan
-
For discharge
Assessment/Plan
-
79-year-old male past medical history of dilated cardiomyopathy, HFrEF status post ICD, permanent atrial fibrillation on Eliquis, hypertension, hyperlipidemia, prostate cancer status post surgery, type 2 diabetes, hemorrhagic CVA, BPPV, chronic back
pain/lumbar radiculopathy, peripheral neuropathy, gait disorder, cataract surgery, presenting for generalized malaise and increasing weakness
Renal consult for hypocalcemia 6.7 and mild hyperkalemia.
Recently discharged for cardiomyopathy has got ejection fraction of 10 to 15% on Lasix, SGLT2 inhibitor and valsartan
Impression.
Hypocalcemia
Vitamin D deficiency
Cardiomyopathy 10 to 15%
Type 2 diabetes
Atrial fibrillation
Plan.
Can use gjuy-fbz-glexzoy vitamin D supplementation 2000units daily
For DC
-
-
Date of Service: March 19, 2025
CC / HPI / ROS
-
Chief Complaint:
Hypocalcemia
History of Present Illness:
Diuresed well with Lasix heart failure
Calcium normal
BP stable
Review of Systems:
No chest pain or shortness of breath
Labs
-
Labs:
WBC 3.3 10^3/uL (4.8-10.8) L 03/19/25 05:11
RBC 4.65 10^6/uL (4.70-6.10) L 03/19/25 05:11
Hgb 14.2 g/dL (13.0-18.0) 03/19/25 05:11
Hct 42.6 % (39.0-52.0) 03/19/25 05:11
Plt Count 123 10^3/uL (130-400) L D 03/19/25 05:11
Sodium 134 mmol/L (135-145) L 03/19/25 05:11
Potassium 4.5 mmol/L (3.5-5.1) 03/19/25 05:11
Chloride 105 mmol/L (98-107) 03/19/25 05:11
Carbon Dioxide 23 mmol/L (22-30) 03/19/25 05:11
BUN 30 mg/dl (9-20) H 03/19/25 05:11
Creatinine 1.0 mg/dL (0.7-1.3) 03/19/25 05:11
eGFR > 60.00 03/19/25 05:11
Glucose 106 mg/dl (70-99) H 03/19/25 05:11
Calcium 8.8 mg/dl (8.4-10.2) 03/19/25 05:11
Phosphorus 4.0 mg/dl (2.5-4.5) 03/19/25 05:11
Quw-L-Adstkytogxp Pept > 58558 pg/ml 03/17/25 10:41
Albumin 3.5 g/dl (3.5-5.0) 03/18/25 05:18
Physical Exam
-
Vital Signs:
Vital Signs
Temp Pulse Resp BP Pulse Ox
97.9 F 84 16 135/86 97
03/19/25 07:51 03/19/25 08:57 03/19/25 07:51 03/19/25 08:57 03/19/25 07:51
Cardiovascular:: Regular rate and rhythm
Respiratory:: Bilateral: CTA
Lung Excursion:: Normal
Abdomen:: Nontender and Soft
Bowel Sounds:: Normal
Extremity Edema:: None: Bilateral:
--- NOTE | 2025-03-19 11:30 | W.PN.HOSP.TC ---
Today's Communication/Plan
-
DC home
Continue with home regimen of Lasix
Assessment / Plan
Assessment / Plan
# Weakness secondary to severe hypocalcemia likely exacerbated by recent Lasix
- Vitamin D repletion
- Calcium repletion
- Telemetry monitoring for arrhythmias
hyperkalemia
Resolved
#Dilated cardiomyopathy/HFrEF status post ICD
#Chronic HFrEF ejection fraction of 10 to 15%
- Cardiac BNP of greater than 27,000 from 19,000, suggesting mild increase in volume overload although not in acute heart failure currently
- Continue Coreg
- Continue dapagliflozin
- Continue Lasix home regimen. Valsartan daily.
consult cardio
Single-vessel CAD
- Continue aspirin
Chronic leukopenia
Recent thrombocytopenia
Permanent atrial fibrillation
- Continue Eliquis
Essential hypertension
- valsartan. Defer to cardio benefits vs risks of continuation of ARB
History of hyperkalemia secondary to MARGARITA inhibitors
Hyperlipidemia
Prostate cancer status post surgery
- Continue abiraterone
Type 2 diabetes
-continue dapaglifozin
-ISS
History of hemorrhagic CVA
BPPV
Chronic back pain/lumbar colopathy
Peripheral neuropathy
Gait disorder
physical therapy consult
Cataract surgery
History of ventricular shunt
Full code
DVT prophylaxis�Eliquis
Cardiac diet
DC home VN
Discussed with cardiology and nephrology okay for discharge
More than 30 minutes spent in discharge including
Final examination of the patient
Summarizing hospital stay
Instructions for continuing care to all relevant caregivers
Preparation of discharge records, prescriptions, and referral forms
Total time spent (in minutes): 52
Anticipated Discharge: Today
Subjective/Interval History
-
Date of Service: March 19, 2025
Denies chest pain or shortness of breath
Objective Data
-
Labs:
Laboratory Results
03/19/25
05:11
WBC 3.3 L
Hgb 14.2
Hct 42.6
Plt Count 123 L D
Sodium 134 L
Potassium 4.5
Chloride 105
Carbon Dioxide 23
BUN 30 H
Creatinine 1.0
Glucose 106 H
Calcium 8.8
Vital Signs:
Vital Signs
Temp Pulse Resp BP Pulse Ox
97.9 F 84 16 135/86 97
03/19/25 07:51 03/19/25 08:57 03/19/25 07:51 03/19/25 08:57 03/19/25 07:51
I&O
03/18/25 03/19/25 03/20/25
06:59 06:59 06:59
Intake Total 480 / 480 1140 / 1140
Output Total 600 / 600
Balance 480 / 480 540 / 540
Physical Exam
-
General: Well Developed, Well Nourished and No Apparent Distress
HEENT: Normocephalic, Atraumatic and Moist Mucous Membranes
Respiratory: Clear to Auscultation; Negative Wheezes, Rales or Rhonchi
Cardiac: Regular Rhythm and S1/S2
GI: Soft, Nontender and Nondistended
Musculoskeletal: Edema, Right Lower Extrem and Edema, Left Lower Extrem
Skin: Rash (lower extremities stasis deermatitis)
Neuro: Awake and Alert
Psych: Calm
--- NOTE | 2025-03-19 11:33 | W.DCSUMMARY ---
Discharge Summary
Discharge Data
Date of Admission: 03/17/25
Date of Discharge: 03/19/25
-
Pending Results: No
Hospital Course
79-year-old male past medical history of atrial fibrillation, CAD, hypertension, hyperkalemia, hyperlipidemia, prostate cancer, type 2 diabetes mellitus, history of hemorrhagic CVA, BPH, chronic back pain, peripheral neuropathy, cardiomyopathy
status post ICD who is presenting with weakness. Patient was found to severe hypocalcemia. Nephrology and cardiology was consulted. Patient was found to have severely low calcium and vitamin D. Electrolytes were repleted. Calcium stabilized.
Started on p.o. vitamin D supplementation. Losartan was decreased to daily. Hyperkalemia resolved. Per cardiology patient can be continued on home regimen of Lasix. Patient was stable on room air. Patient be discharged to home with VN.
Discharge Plan
-
Patient Disposition: Home with Home Care
Discharge Diagnosis/Procedures: Hypocalcemia
Vitamin D deficiency
Hyperkalemia
Weakness
Condition: Fair
Diet: 2 Gram Sodium and Restrict fluids to 48 oz
Activity: As tolerated
Driving Restrictions: As prior to admission
Blood Work: BMP in 1 week via primary doctor to assess electrolytes level
Other Services: VN
Referrals:
Sharon De Guzman CRNP [Specified Professional Personl, Cardiology] - 04/03/25 1:40 pm
Noy Aquino PA-C [Family Provider, Family Practice] - in less than 1 week
Additional Discharge Medication Instructions: Valsartan 40mg has been decreased to daily
Prescriptions:
New
rosuvastatin 20 mg Tablet
20 mg PO QPM 30 Days Qty: 30 0RF
ergocalciferol (vitamin D2) 50 mcg (2,000 unit) tablet
50 mcg PO DAILY 30 Days Qty: 30 0RF
Continued
carvedilol 12.5 mg Tablet
12.5 mg PO BID
Lumigan 0.01 % Drops
1 drp BOTH EYES DAILY
abiraterone 250 mg tablet
500 mg PO DAILY
Eliquis 5 mg Tablet
5 mg PO BID
furosemide 20 mg tablet
20 mg PO DAILY
dapagliflozin propanediol 10 mg tablet
10 mg PO DAILY
aspirin 81 mg tablet,chewable
81 mg PO DAILY
Changed
valsartan 40 mg tablet
40 mg PO DAILY Qty: 30 0RF
Discharge Orders:
Discharge Patient (As Directed); Ordered 03/19/25
Ordered By: Evangelist Hall
Discharge Date and Time
Discharge Date/Time: 03/19/25 13:23
Print Language: BELARUSIAN
[2025-03-19 11:41] LABS: Glucose - Point of Care 139 mg/dl (70-99)
[2025-03-19 11:57] VITALS: BP 98/54
[2025-03-19 13:10] VITALS: BP 101/60
--- NOTE | 2025-03-19 13:21 | PTCARENOTE ---
Pt's temp 96.2F orally. pt refusing rectal temp. made aware. D/c order is in, pt stated his ride is on the way he is leaving regardless of temp.
--- NOTE | 2025-03-19 14:25 | CM ---
MD entered order for discharge.
Spoke with pt he said he agrees with discharge today.
IMM reviewed with pt . He agrees with discharge.
He said he will call his dgt and she will drive him home.
PLAN Home with VN .
== END 2025-03-19 13:23 | disposition home health service (06) | DRG 641 ==
LOC: 3 WEST ACU 12:50
PROVIDERS: Internal Medicine; Physician Assistant; ADMITTING PHYSICIAN Hospitalist; ATTENDING PHYSICIAN Hospitalist; CONSULT PHYSICIAN Internal Medicine Cardiovascular Disease; CONSULT PHYSICIAN Internal Medicine Nephrology; EMERGENCY PHYSICIAN Emergency Medicine; FAMILY PHYSICIAN Physician Assistant Medical
DX: E83.51 Hypocalcemia (principal); I50.22 Chronic systolic (congestive) heart failure; I42.0 Dilated cardiomyopathy; I48.21 Permanent atrial fibrillation; N25.81 Secondary hyperparathyroidism of renal origin; E78.00 Pure hypercholesterolemia, unspecified; I11.0 Hypertensive heart disease with heart failure; G89.29 Other chronic pain; E11.42 Type 2 diabetes mellitus with diabetic polyneuropathy; D72.819 Decreased white blood cell count, unspecified; E11.36 Type 2 diabetes mellitus with diabetic cataract; E87.5 Hyperkalemia; M54.16 Radiculopathy, lumbar region; H81.10 Benign paroxysmal vertigo, unspecified ear; I27.20 Pulmonary hypertension, unspecified; I25.10 Atherosclerotic heart disease of native coronary artery without angina pectoris; R26.2 Difficulty in walking, not elsewhere classified; T50.1X5A Adverse effect of loop [high-ceiling] diuretics, initial encounter; Z60.2 Problems related to living alone; Z79.01 Long term (current) use of anticoagulants; Z86.73 Personal history of transient ischemic attack (TIA), and cerebral infarction without residual deficits; Z95.810 Presence of automatic (implantable) cardiac defibrillator; Z98.2 Presence of cerebrospinal fluid drainage device; Z88.8 Allergy status to other drugs, medicaments and biological substances; Z88.6 Allergy status to analgesic agent; Z91.012 Allergy to eggs; Z79.84 Long term (current) use of oral hypoglycemic drugs; Z79.82 Long term (current) use of aspirin; Z85.46 Personal history of malignant neoplasm of prostate; Z87.891 Personal history of nicotine dependence
CPT/HCPCS: 71046; 80048; 80053; 82306; 82962; 83735; 83880; 83970; 84100; 84132; 84484; 85025; 93005; 96374; 97162; 99285

== ENCOUNTER 2025-03-27 04:15 | Observation (INO) | payer MEDICARE, OTHER, SELFPAY ==
[2025-03-27] VITALS (10 sets, daily range): BP systolic 96–122; BP diastolic 51–78; BMI 25.4; BMI 26.3
--- NOTE | 2025-03-27 01:06 | ED.GENMED ---
History of Present Illness
General
Chief Complaint: Fall
Source: patient and family (Daughter)
Time Seen by Provider: 03/27/25 00:52
History of Present Illness
History of Present Illness:
79-year-old male presents to the emergency room for evaluation of 2 issues. First he had a trip and fall striking the front of his head. No loss of consciousness. Patient does take Eliquis. All he denies any focal weakness numbness or tingling.
Patient also complaining of pain and swelling of the left face. He has pain with opening his mouth. Patient initially had a toothache in the left mouth which has increased in severity. No fever or chills.
Past History
Past History
ED Past Medical History: Arrthythmia (Atrial fibrillation), Cancer (Prostate), CVA (Hemorrhagic), HTN, Hypercholesterolemia and Other (Chronic back pain/lumbar radiculopathy, polyneuropathy, gait disorder)
ED Past Surgical History: Other (Ventricular shunt, cataract, prostate, pacemaker and AICD)
Patient has exhibited threatening behavior?: No
PSI?: No
Social History
Tobacco: Non-smoker
Alcohol: None
Personal:
Living: with family
Employment: Employed
Family History
Family History: Other (Noncontributory)
Phy Exam
Physical Exam
Physical Exam:
General: Awake, Alert, Oriented X3. No acute distress.
Vitals: unremarkable
Head: Atraumatic
Eyes: Pupils equal, EOMI
Face: Area of focal swelling noted over the left posterior mandible. Area is tender to palpation. Patient also has tenderness palpation along the buccal mucosa anterior to the left lower molars. Perhaps there is an area of fluctuance but there is
no pointing.
Throat: Airway intact, no exudates
Neck: Trachea midline
Lungs: Clear and equal b/l
Heart: Regular rate, no murmurs
Abd: Soft, Nontender, No pulsatile mass
Neuro: Nonfocal
Skin: Warm, dry, no rash
Extremities: pulses equal b/l, no edema
Course
Orders/Labs/Results
Orders:
Orders
03/27/25 01:04
CT Facial Bones W/ Iv Contrast Urgent
Comment:
Reason For Exam: left facial swelling ? abscess
03/27/25 01:05
CT Head W/o Iv Contrast Urgent
Comment:
Reason For Exam: fall head injury
03/27/25 02:18
Basic Metabolic Panel Urgent
Complete Blood Count/With Diff Urgent
03/27/25 03:31
Clindamycin Phosphate [Cleocin] 300 mg 0.9% Sodium Chloride [Nss] 50 ml IV NOW
03/27/25 03:55
Admit/Transfer Patient As Directed
Co-Sign Provider:
Level of Care: Observation services
Assign to:: Medical/Surgical
Physician / Group: Reza
Diagnosis: orofacial infection
PRN Pain Medication Management As Directed
May give lesser potent ordered pain med per pt: Yes
preference::
Protocol:: Medication orders for pain may be administered in a
manner that supports deferring to patient preference
when the pt is:
- Requesting an ordered lesser potent pain medication.
Least to most potent pain medications are defined
as: acetaminophen < NSAID < tramadol < opioids
(morphine, oxycodone, hydromorphone).
- Requesting a lesser dose of the same medication IF
ORDERED.
- Requesting a less intrusive route of administration
if both routes are prescribed by the provider (PO <
IV).
03/27/25 03:58
Code Status As Directed
Resuscitation Status: Full Code
03/27/25 04:07
MRSA Screen Routine
MIRIAM Source: Nose
Specimen Description:
03/27/25 04:48
Acetaminophen [Tylenol] 650 mg PO Q4HPRN PRN
Bisacodyl [Dulcolax] 10 mg RECTAL [id number] PRN
Docusate W/Senna [Senokot-S] 1 tablet PO BIDPRN PRN
Polyethylene Glycol Powder [Miralax] 17 grams PO DAILYPRN PRN
03/27/25 04:48
Consult Notification Routine
Specialty to Notify: Infectious Disease
Date consulting provider notified: 03/27/25
Time consulting provider notified: 07:39
Notified:: Provider
Comment: RHEA LUNA
VTE Contraindication Routine
VTE Mechanical Device Contraindication: Medical Contraindication
Pharmocologic Contraindication: Medical Contraindication
Activity As Directed
Activity Level: With Assistance
Vital Signs As Directed
Frequency: Per unit guidelines
Pulse Ox/spot Check [RESP] Routine
Quantity: 1
03/27/25 06:00
Ampicillin/Sulbactam 3 G [Unasyn] 3 gm 0.9% Sodium Chloride 100 ml [Nss] 100 ml IV Q6H
03/27/25 06:03
Basic Metabolic Panel IN AM
Complete Blood Count/No Diff IN AM
ESR [Erythrocyte Sed Rate] IN AM
03/27/25 08:00
Apixaban [Eliquis] 5 mg PO BID
Aspirin Chewable [Low Strength Aspirin] 81 mg PO DAILY
Carvedilol [Coreg] 12.5 mg PO BID
Dapagliflozin [Farxiga] 10 mg PO DAILY
Furosemide [Lasix] 20 mg PO DAILY
Latanoprost [Xalatan Ophthalmic Solution] 1 drop BOTH EYES DAILY
Valsartan [Diovan] 40 mg PO DAILY
abiraterone See Dose Instructions PO DAILY
ergocalciferol (vitamin D2) 50 mcg PO DAILY
03/27/25 18:00
Rosuvastatin Calcium [Crestor] 20 mg PO QPM
Abnormal Lab Results
03/27/25
02:18
RBC 4.23 L 10^6/uL
(4.70-6.10)
Hgb 12.8 L g/dL
(13.0-18.0)
Hct 38.0 L %
(39.0-52.0)
RDW 14.6 H %
(11.5-14.5)
Plt Count 112 L 10^3/uL
(130-400)
MPV 12.9 H fL
(7.4-10.4)
Absolute Lymphs (auto) 0.8 L 10^3/uL
(1.2-3.4)
Neutrophils % 78.7 H %
(42.2-75.2)
Lymphocytes % 11.1 L %
(20.5-51.1)
Sodium 133 L mmol/L
(135-145)
BUN 25 H mg/dl
(9-20)
Glucose 115 H mg/dl
(70-99)
03/27/25 02:18
03/27/25 02:18
Vital Signs
Initial and Last Documented VS:
Initial Vital Signs
Temp Pulse Resp BP Pulse Ox
97.5 F 64 18 96/51 97
03/27/25 00:12 03/27/25 00:12 03/27/25 00:12 03/27/25 00:12 03/27/25 00:12
Last Documented Vital Signs
Temp Pulse Resp BP Pulse Ox
97.4 F 86 14 123/78 96
03/28/25 07:00 03/28/25 07:00 03/28/25 07:00 03/28/25 07:00 03/28/25 07:00
MDM/Problems Addressed
Differential Diagnosis Includes:
abscess, cellulitis, mass, lymphadenopathy
MDM/Problems Addressed:
Attempted to perform an incision and drainage of suspected dental abscess. A stab incision was made in the area of fluctuance. No purulent drainage obtained. Will obtain a CT to further evaluate this area. Also obtain a head CT to evaluate for
intracranial injury.
Neg head CT. Given trismus and amount of swelling admit for iv abx
*Pulse Oximetry
SaO2: 97
Oxygen Mode of Delivery: Room air
Patient hypoxic: no
*Critical Care Note
Total Time (30-74mins, 75-104mins- exclusive of procedures): Not Applicable
ED Attending Note
-
Portions of this chart may have been created with voice recognition software.� Occasional wrong word or��sound alike� substitutions may have occurred due to the inherent limitations of voice recognition software.
Discharge Plan
Departure
Patient Disposition: Admit
Date of Disposition: 03/27/25
Time of Disposition: 03:16
Presentation/result/management discussed w/ accepting MD/DO: Hospitalist
Condition: Fair
Discharge Problem:
Cellulitis of face, Head injury
Interventions
Interventions:
*Risk Screen - Suicide Last Done: 03/27/25 00:12
*General Assessment Last Done: 03/27/25 00:36
*Neglect/Abuse Screening Last Done: 03/27/25 00:12
*ED- Fall Risk Assessment Last Done: 03/27/25 00:36
*ED COVID-19 Vaccine History Last Done: 03/27/25 00:36
*Nursing Disposition Last Done: 03/27/25 04:41
ED-Musculoskeletal Assessment Last Done: 03/27/25 01:44
ED- Neurological Assessment Last Done: 03/27/25 01:44
ED-Skin Assessment Last Done: 03/27/25 01:44
Discharge Date and Time
Discharge Date/Time: 03/27/25 04:42
[2025-03-27 02:30] LABS: Hematocrit 38.0 % (39.0-52.0); Hemoglobin 12.8 g/dL (13.0-18.0); Mean Corp Hgb Conc. 33.7 g/dL (33.0-37.0); Mean Corpuscular Volume 89.8 fL (80.0-94.0); Nucleated Red Blood Cells % 0 % (-); Platelet Count 112 10^3/uL (130-400); Red Cell Dist. Width 14.6 % (11.5-14.5)
[2025-03-27 02:52] LABS: Blood Urea Nitrogen 25 mg/dl (9-20); Calcium 8.7 mg/dl (8.4-10.2); Carbon Dioxide 22 mmol/L (22-30); Chloride 106 mmol/L (98-107); Estimated Creatinine Clearance 59 ml/min; Glucose 115 mg/dl (70-99); Potassium 4.3 mmol/L (3.5-5.1); Sodium 133 mmol/L (135-145); eGFR > 60.00
--- NOTE | 2025-03-27 03:31 | HPS.HSE ---
Family Physician
-
Family Physician: Noy Aquino PA-C
Chief Complaint
-
Fall
History of Present Illness
This is an 79-year-old male with past medical history of atrial fibrillation, CAD, hypertension, hyperkalemia, hyperlipidemia, prostate cancer, type 2 diabetes mellitus, history of hemorrhagic CVA, BPH, chronic back pain, peripheral neuropathy,
cardiomyopathy status post ICD who was recently admitted for generalized weakness and found to have severe vitamin D deficiency and hypocalcemia, status post vitamin D and calcium supplementation who now presents to the emergency department with
history of a trip and fall as well as facial swelling.
First he had a trip and fall striking the front of his head. No loss of consciousness. Patient does take Eliquis. Denies any focal weakness numbness or tingling.
Reports that she developed toothache over the left lower jaw starting about 2 days ago. He was still able to tolerate p.o. and did not notice any significant symptom until after his fall when his daughter saw him and noticed some swelling over his
left lower jaw and face. Patient denied having any fevers or chills. Initially thought it was secondary to fall but after looking at his mouth they felt that this was secondary to this dental infection.
He has some pain with opening his mouth but is able to speak.
In the emergency department he was afebrile, blood pressure was 117/80 with a pulse of 88 satting 100% on room air.
CBC was unremarkable. His electrolytes were stable with a sodium of 133 potassium 4.3 bicarb of 22 and a BUN/creatinine of [address] of the head was negative for any acute intracranial process. CT facial bones is pending.
There was an attempted stab I+D but did not obtain any pus.
Medical History
Past Medical History
Past Medical History: Reports Other (dilated cardiomyopathy, HFrEF status post ICD, permanent atrial fibrillation on Eliquis, hypertension, hyperlipidemia, prostate cancer status post surgery, type 2 diabetes, hemorrhagic CVA, BPPV, chronic back
pain/lumbar radiculopathy, peripheral neuropathy, gait disorder, cataract surgery)
Past Surgical History: Reports None
Social History
Tobacco: Non-smoker
Alcohol: None
Drug: None
Family History
Family History: Not pertinent
Allergies / Home Medications
Allergies reflects when Allergies were last updated in [email or web address].
Home Medications with original date entered in [email or web address]
Allergy/Medication List:
Allergies
Allergy/AdvReac Type Severity Reaction Status Date / Time
ERASMO Inhibitors (Erasmo Allergy hyperkalemi Verified 03/07/25 12:13
Inhibitors) a
egg (Egg) Allergy upset Verified 03/07/25 12:13
stomach/NAUSEA
gabapentin Allergy 'spacey' Verified 03/08/25 16:03
lisinopril Allergy Unknown Verified 03/07/25 12:13
lorazepam Allergy hallucinati Verified 03/07/25 12:13
ons,paranoi
a
NSAIDS (Non-Steroidal Allergy Unknown Verified 03/08/25 16:03
Anti-Inflamma (NSAIDS
(Non-Steroidal
Anti-Inflammatory Drug))
warfarin sodium (From Allergy hemhoragic Verified 03/08/25 16:03
Coumadin) stroke hx
Home Medications
abiraterone 250 mg tablet 500 mg PO DAILY 03/07/25
apixaban 5 mg tablet (Eliquis) 5 mg PO BID 03/07/25
bimatoprost 0.01 % eye drops (Lumigan) 1 drp BOTH EYES DAILY 03/07/25
carvedilol 12.5 mg tablet 12.5 mg PO BID 03/07/25
aspirin 81 mg chewable tablet 81 mg PO DAILY #30 tabs 03/11/25
dapagliflozin propanediol 10 mg tablet 10 mg PO DAILY #30 tabs 03/11/25
furosemide 20 mg tablet 20 mg PO DAILY #30 tabs 03/11/25
valsartan 40 mg tablet 40 mg PO BID #60 tabs 03/11/25
Review of Systems
-
History Source: Patient
A 12 point ROS was completed and negative except as noted: Yes
Constitutional: Reports No Symptoms
EENT: Reports Mouth Swelling and Other (facial swelling)
Respiratory: Reports No Symptoms
Cardiac: Reports No Symptoms
Abdomen/GI: Reports No Symptoms
: Reports No Symptoms
Musculoskeletal: Reports No Symptoms
Skin: Reports No Symptoms
Neurological: Reports No Symptoms
Endocrine: Reports No Symptoms
Hematologic/Lymphatic: Reports No Symptoms
Psych: Reports No Symptoms
Physical Exam
Vital Signs
Vital Signs
Temp Pulse Resp BP Pulse Ox
97.5 F 88 19 117/78 100
03/27/25 00:12 03/27/25 02:30 03/27/25 02:30 03/27/25 02:00 03/27/25 02:30
Physical Exam
General: Well Developed, Well Nourished and No Apparent Distress
HEENT: NormoCephalic, Moist mucous membranes, Atraumatic, PERRLA and Other (no oral drainage. There is some erythema and swelling over the left lower jaw); No Pharyngeal Erythema, Neck Nontender, Neck Mass or Oxygen
Respiratory: Clear
Cardiac: S1/S2, Irregular Rhythm and Peripheral Edema; No Murmur or Rub
GI: Soft, Non Tender, Non Distended and Normal Bowel Sounds; No Organomegaly
Rectal: Deferred by Provider
Musculoskeletal: No Clubbing, No Cyanosis, Edema, Left Lower Extremity (1+) and No Edema
Skin: Rash (There is erythema surrounding a skin abrasion/excoriation on the left lower leg. Nontender to palpation.)
Neuro: AO x 3 and Nonfocal/grossly intact
Laboratory Results
-
03/27/25 02:18
03/27/25 02:18
Data Reviewed
-
CT Scan: Report Reviewed by me
Lab Data: Labs Reviewed by me
Old Records: Reviewed
Impression/Plan
-
IMPRESSION:
79-year-old with history of atrial fibrillation on anticoagulation, dilated cardiomyopathy, prostate ca, CAD, hemorrhagic CVA recently admitted with weakness and hypercalcemia now resolved now presenting with present left lower jaw tooth
abscess/cellulitis. Likely gingivitis with local skin reaction. Attempted drainage without any pus obtained in the ED. He is afebrile, has no leukocytosis. He has some trismus. CT of the head was negative for acute bleed. CT facial bones are
pending.
PLAN:
Facial Celluliitis -likely secondary to local tooth abscess/change of gingivitis. No history of MRSA. Does have recent admissions (September, and prolonged admission in February).
- admit to med/surg observation
- started clinda in ED
- will continue with Unasyn for appropriate oropharyngeal coverage for now
- CT facial bones with small abscess along the left mandibular bone w/ extensive surrounding soft tissue edema. Source likely an apical lucency at the root of the posterior molar eroding through the inner table of the mandibular cortex.
- OMF consulted. Recommended transfer to [facility]. Awaiting call back from [facility] for attending approval.
- NPO for
- mrsa swab
Mechanical Fall - Trip and fall, no LOC. Known abulatory dysfunction but no focal weakness
- continue PTOT
AFIB - Currently in AFIB and rate controlled. Mechanical fall pending PT
- continue eliquis 5 bid
- carvedilol 12.5 bid
CAD
- continue aspirin and statin
DM II
- on jardiance
- diabetic diet, no sliding scale for now
CHF
- trace edema, continue lasix 20 daily.
DVT PPX - on eliquis
Code status - Full Code
[2025-03-27] MEDS: CLEOCIN 52 MG IV (04:01)
[2025-03-27] MEDS: TYLENOL 650 MG PO ×2 (05:33→11:29)
[2025-03-27] MEDS: UNASYN IV ×3 (05:33→18:09)
[2025-03-27 06:22] LABS: Hematocrit 37.9 % (39.0-52.0); Hemoglobin 12.8 g/dL (13.0-18.0); Mean Corp Hgb Conc. 33.8 g/dL (33.0-37.0); Mean Corpuscular Volume 90.2 fL (80.0-94.0); Platelet Count 115 10^3/uL (130-400); Red Cell Dist. Width 14.6 % (11.5-14.5)
[2025-03-27 06:37] LABS: Blood Urea Nitrogen 24 mg/dl (9-20); Calcium 8.4 mg/dl (8.4-10.2); Carbon Dioxide 23 mmol/L (22-30); Chloride 104 mmol/L (98-107); Estimated Creatinine Clearance 57 ml/min; Glucose 96 mg/dl (70-99); Potassium 4.2 mmol/L (3.5-5.1); Sodium 133 mmol/L (135-145); eGFR > 60.00
--- NOTE | 2025-03-27 07:43 | PTCARENOTE ---
Patient arrived on unit @0445 via stretcher from ED, pulled over with assist x3. Patient AAOx3, Skin assessment completed, med rec completed, oriented to unit.
[2025-03-27] MEDS: FARXIGA 10 MG PO (09:03)
[2025-03-27] MEDS: LOW STRENGTH ASPIRIN 81 MG PO (09:03)
[2025-03-27] MEDS: LASIX 20 MG PO (09:03)
[2025-03-27] MEDS: COREG 12.5 MG PO ×2 (09:03→20:53)
[2025-03-27] MEDS: DIOVAN 40 MG PO (09:04)
[2025-03-27] MEDS: ELIQUIS 5 MG PO ×2 (09:04→20:53)
[2025-03-27] MEDS: XALATAN OPHTHALMIC SOLUTION 1 DROP BOTH EYES (09:05)
--- NOTE | 2025-03-27 10:09 | VNURNOTE ---
Addendum entered by Cheri Waters RN 03/27/25 13:01:
Patient high risk for re-hospitalization. CAFETERIA ASSISTANT, [facility] attempted to contact pt for VN visits and were unsuccessful- pt did not answer phone. Liaison met with patient at bedside. Explained VN attempted to schedule visits w/ him. Explained need for
phone contact prior to visits. Patient verbalized understanding. He expressed that he'd like to resume w/ [facility] upon DC and will answer calls. [facility] aware of OBS status, will follow for DC date.
Original Note:
Chart reviewed. Patient is current with [facility]. Will continue to follow hospital course and DC plans.
[2025-03-27 12:43] LABS: Glucose - Point of Care 79 mg/dl (70-99)
--- NOTE | 2025-03-27 13:17 | W.PN.UPDATE ---
Update Note
Progress Note Update
Hospitalist H&P from 0331 this morning. I have reviewed the patient's chart and personally evaluated him at the bedside.
79-year-old male with HFrEF (LVEF 10%) s/p AICD, paroxysmal AF on Eliquis, hypertension, hyperlipidemia, NIDDM C/B neuropathy, prostate cancer s/p resection, history of ICH that presented to the hospital with a fall at home, and symptoms of a
toothache over the last 2 days. After fall daughter looked in mouth as he was complaining of pain and noticed signs of dental infection, was brought into the ED subsequently. AFVSS throughout course here. In the ED attempted stab I&D occurred
however no purulence produced. CT facial bones shows suspicious findings of small abscess within the soft tissues adjacent to the left side of the mandible near the mandibular angle with source of infection possibly a focal lucency at the root of a
posterior molar eroding through inner table of the mandibular cortex. Oral maxillofacial team was consulted on admission and recommended transfer to [facility] for incision and drainage and monitoring for airway compromise.
AO x 4, NAD, no FND. Swelling to the left mandibular angle, tenderness. Cardiopulmonary exam unremarkable, abdomen benign. Euvolemic, skin warm and dry.
Facial cellulitis with tooth abscess left mandibular region. Currently on IV Unasyn, no leukocytosis or fevers, pain slightly improved. Discussed with OMF team at [facility] who recommends discharge from hospital with follow-up at [facility] ED for OMF intervention. Will discussed with patient and daughter, consider discharge and follow-up at [facility], ED. In the interim we will continue with IV Unasyn, trend CBC, inflammatory markers, and temperature curve.
Monitor closely for signs of airway compromise. As needed analgesics
Clear liquid diet
Home Eliquis for thromboprophylaxis
Full code
Discharge timeline TBD
[2025-03-27 16:45] LABS: Glucose - Point of Care 79 mg/dl (70-99)
--- NOTE | 2025-03-27 17:13 | CM ---
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 Cheri Nichols liaison for [facility] set up referral.Nath
letter explained signed and on chart.
[facility] current / No SNF history
Pharmacy [facility]
PCP DR Mckenna
PLAN Home with [facility]
[2025-03-27] MEDS: CRESTOR 20 MG PO (18:09)
[2025-03-27 20:43] LABS: Glucose - Point of Care 84 mg/dl (70-99)
[2025-03-28] MEDS: UNASYN IV ×3 (00:30→11:43)
[2025-03-28 06:43] LABS: Hematocrit 41.5 % (39.0-52.0); Hemoglobin 13.9 g/dL (13.0-18.0); Mean Corp Hgb Conc. 33.5 g/dL (33.0-37.0); Mean Corpuscular Volume 91.2 fL (80.0-94.0); Nucleated Red Blood Cells % 0 % (-); Platelet Count 126 10^3/uL (130-400); Red Cell Dist. Width 14.7 % (11.5-14.5)
[2025-03-28 06:54] LABS: Blood Urea Nitrogen 22 mg/dl (9-20); Calcium 8.3 mg/dl (8.4-10.2); Carbon Dioxide 22 mmol/L (22-30); Chloride 104 mmol/L (98-107); Estimated Creatinine Clearance 63 ml/min; Glucose 73 mg/dl (70-99); Potassium 4.2 mmol/L (3.5-5.1); Sodium 133 mmol/L (135-145); eGFR > 60.00
[2025-03-28 07:00] VITALS: BP 123/78
[2025-03-28 07:12] LABS: C-Reactive Protein 140.70 mg/L (0.0-10.00)
[2025-03-28 09:09] LABS: Glucose - Point of Care 77 mg/dl (70-99)
[2025-03-28] MEDS: FARXIGA 10 MG PO (09:47)
[2025-03-28] MEDS: LASIX 20 MG PO (09:47)
[2025-03-28] MEDS: LOW STRENGTH ASPIRIN 81 MG PO (09:47)
[2025-03-28] MEDS: ELIQUIS 5 MG PO (09:47)
[2025-03-28] MEDS: COREG 12.5 MG PO (09:47)
[2025-03-28] MEDS: TYLENOL 650 MG PO (09:52)
[2025-03-28] MEDS: XALATAN OPHTHALMIC SOLUTION 1 DROP BOTH EYES (09:54)
[2025-03-28] MEDS: DIOVAN 40 MG PO (10:10)
--- NOTE | 2025-03-28 10:20 | VNURNOTE ---
Rec'ed update from primary VN that pt's daughter had concerns/questions about DC plan. TUNDE Valle updated via T.T. Per chart review, current plan is DC home w/resumption of [facility]. Called daughter Ashley [phone], left message.
[2025-03-28 10:32] VITALS: BMI 26.4
--- NOTE | 2025-03-28 11:04 | W.PN.HOSP.TC ---
Addendum entered and electronically signed by Abraham Salazar DO 03/28/25 16:34:
CDI: CKD 2, severe protein calorie malnutrition
Addendum: Prior to discharge patient developed slight dizziness and nausea, SBP near 90 mmHg. Has been on CLD due to aspiration risk, not taking in much. Will provide 250 mL IV fluid bolus, judiciously with severe HFrEF history, and reassess blood
pressure. If BP and symptoms improved will still plan to discharge with daughter transferring patient to ED at [facility] for OMF intervention
Original Note:
Today's Communication/Plan
-
Discharge, patient will follow-up at [facility] ED to meet with OMF team for intervention on his tooth abscess
Assessment / Plan
Assessment / Plan
#Facial Celluliitis
-likely secondary to local tooth abscess/change of gingivitis. No history of MRSA. Does have recent admissions
-will continue with Unasyn for appropriate oropharyngeal coverage for now, transition to Augmentin at discharge
-CT facial bones with small abscess along the left mandibular bone w/ extensive surrounding soft tissue edema.
-Source likely an apical lucency at the root of the posterior molar eroding through the inner table of the mandibular cortex.
-OMF consulted. Recommended transfer to [place]. Discussed with team at [facility] who recommended discharge with patient self transport to ED there
-Discussed again with Jeremy Hayward DDS from [facility], who states OMF will be ready to receive the patient in the ED at [facility] or [place] presby-
#Mechanical Fall
-Trip and fall, no LOC.
-Known abulatory dysfunction but no focal weakness
-continue PT/OT
#AFIB
-Currently in AFIB and rate controlled
-continue eliquis 5 bid, carvedilol 12.5 bid
#CAD
-continue aspirin and statin
#DM II
-on jardiance and ISS
-BG goal 140-180
#CHF
-trace edema, continue lasix 20 daily.
-GDMT with SGLT2i, Beta zaida, ARB
DVT PPX - on eliquis
Code status - Full Code
Disposition: As above, I have discussed this case with the oral maxillofacial surgery team both here and at the [facility]. Surgical team here recommended hospital to hospital transfer, I discussed with the OMF team at [facility] who
recommended discharge from the hospital here and then personal transport to either the ED at [facility] or [facility]. The OMF team will see the patient in the ED and likely provide
intervention onto the tooth. They state it is likely he will be discharged home following the procedure though this is at their discretion. I spoke with both the patient and his daughter Maria Isabel who are in agreement with this plan. I will send
the patient with Augmentin 875�125 every 12 hours for now, antibiotics can be further adjusted by OMF team at [facility].
Anticipated Discharge: Today
Subjective/Interval History
-
Date of Service: March 28, 2025
Seen and examined at the bedside. No acute events reported overnight. AFVSS this morning
Patient states he feels well, denies any complaints. Still with mild pain in his jaw that is tolerable
WBC stable this morning.
Objective Data
-
Labs:
Laboratory Results
03/28/25
06:03
WBC 4.2 L
Hgb 13.9
Hct 41.5
Plt Count 126 L
Sodium 133 L
Potassium 4.2
Chloride 104
Carbon Dioxide 22
BUN 22 H
Creatinine 1.0
Glucose 73
Calcium 8.3 L
Vital Signs:
Vital Signs
Temp Pulse Resp BP Pulse Ox
97.4 F 86 14 123/78 96
03/28/25 07:00 03/28/25 07:00 03/28/25 07:00 03/28/25 07:00 03/28/25 07:00
I&O
03/27/25 03/28/25 03/29/25
06:59 06:59 06:59
Intake Total 120 / 120 1040 / 1040
Output Total 250 / 250
Balance 120 / 120 790 / 790
Review of Systems
-
History Source: Patient
All other systems: Reviewed and negative
Physical Exam
-
General: Well Developed, Well Nourished and No Apparent Distress
HEENT: Normocephalic, Atraumatic, Moist Mucous Membranes, Anicteric and Other (Tenderness to the left mandible with superficial edema, improved)
Respiratory: Clear to Auscultation, Non Labored Respirations and Other (No stridor); Negative Accessory Resp Muscle Use
Cardiac: Regular Rhythm and S1/S2; Negative Murmur, Rub, JVD or Gallop
GI: Soft, Nontender, Nondistended and Normal Bowel Sounds
Musculoskeletal: No Clubbing, No Cyanosis and No Edema
Skin: Warm and Dry; Negative Rash
Neuro: AO x 3, Nonfocal/Grossly Intact and Central Nerve's Intact; Negative Tremors
Hematologic / Lymphatic: No Lymphadenopathy
Psych: Calm
Data Reviewed
-
Labs: Labs Reviewed by me, Discussed with Physician (Oral maxillofacial team at [facility]) and Discussed with Patient
[2025-03-28 11:30] VITALS: BP 106/66
[2025-03-28 11:44] LABS: Glucose - Point of Care 79 mg/dl (70-99)
--- NOTE | 2025-03-28 13:24 | CM ---
Addendum entered by Tori Madera 03/28/25 15:20:
Pt will have DHVN resumed when he returns home from [place] s/p oral surgery I&D.
Original Note:
Call placed to pt's daughter Ashley to discuss discharge plans. Daughter was asking about options for care; asked about SNF which I explained to her would not be covered, as pt has not had a 3 day inpatient hospitalization which is required in
addition to needing skilled level of care.
Resources reviewed and sent to Ashley via email ([email or web address])
[2025-03-28 13:40] VITALS: BP 89/51; BP 95/42
--- NOTE | 2025-03-28 13:40 | PTCARENOTE ---
attending notified as pt was preparing for D/C with health and wellness coordinator his BP was 89/51 pt was c/o nausea and weakness/dizziness. attending also notified pt's daughter voiced concerns R/T D/C plan and transporting pt to the city.
[2025-03-28] MEDS: NSS 250 IV (14:12)
[2025-03-28 15:14] VITALS: BP 100/69
[2025-03-28 15:18] VITALS: BP 103/67
[2025-03-28 15:19] VITALS: BP 105/67
--- NOTE | 2025-03-28 15:24 | PTCARENOTE ---
pt BP improved s/p IV bolus of 250ml NS. daughter at bedside, and was able to s/w attending. in agreement with POC although did express anxiety r/t driving to city, reassurance provided, d/c plan remains.
--- NOTE | 2025-03-28 15:54 | W.DCSUMMARY ---
Discharge Summary
Discharge Data
Date of Admission: 03/27/25
Date of Discharge: 03/28/25
Total time spent discharging patient (in min): 36
-
Pending Results: No
Hospital Course
Discharging Physician : Abraham Salazar DO
Disposition : Personal transport to [facility] emergency department
Principal Discharge diagnosis :
Odontogenic abscess
Facial cellulitis
Chronic Discharge diagnosis :
Chronic HFrEF (LVEF 10 to 15%)
Paroxysmal AF on Eliquis
Primary hypertension
Dyslipidemia
NIDDM C/B neuropathy
Prostate cancer on antihormonal therapy
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
Hospital Course :
79-year-old male that presented to the hospital with a fall at home and subsequent left-sided jaw pain. Fall was mechanical in nature, patient tripped over an object on the ground and fell without head strike or loss of consciousness no unclear if
he had traumatic contact with his jaw. Pain persisted despite other clinical improvement at home. Was brought into the ED for further assessment and noted to have swelling, erythema and fluctuance of the left lower jaw distally. ED provider
attempted a stab I&D though unsuccessful without purulence. Was subsequently started on IV Unasyn. CT demonstrated signs of small abscess along the left mandibular bone w/ extensive surrounding soft tissue edema. Case was discussed with oral
maxillofacial surgery here who recommended transfer to [facility] for closer monitoring and intervention. Discussed with Dr. Jeremy Hayward from [facility], OMF service who recommended hospital discharge with personal transportation to the
emergency department at the hospital of [facility] where OMF would intervene on his otogenic abscess. Risks and benefits were discussed with both the patient and his daughter Maria Isabel. Ultimately decision was made for discharge and
immediate transport to [facility] by his daughter. Updated OMF team at [facility] at time of his discharge from the hospital here. Prescription was sent for Augmentin 875-125 mg twice daily, may be adjusted after being seen by OMF team at [place]
Consultants: N/A
Important imaging findings :
CT facial bones with IV contrast (03/27/2025)
IMPRESSION: Findings suspicious for small abscess within the soft tissues adjacent to the left side of the mandible near the mandibular angle, source of infection may be focal lucency at the root of a posterior molar eroding through the inner table
of the mandibular cortex. Immediate dental evaluation and dental radiographs and/or [facility] suggested for more complete evaluation
Procedure findings : N/A
Follow-up:
Immediate transport from [facility] to hospital at [facility] by his daughter for intervention by [facility] oral maxillofacial surgery
Should have appointment with family doctor within 1 week of hospital discharge
Should have routine follow-up with electrical test engineer within 2 weeks of discharge
Discharge Plan
-
Patient Disposition: Home (Routine Discharge)
Discharge Diagnosis/Procedures: Dental Abscess
Facial Cellulitis
Condition: Fair
Diet: As tolerated
Activity: As tolerated
Driving Restrictions: No driving for 24 hours
Bathing Restrictions: None
Blood Work: N/A
Others Tests: N/A
Activity Restrictions/Additional Instructions:
Follow-up at the ED at either [facility] or [facility]. You should head to their emergency department immediately after your discharge from [facility]. Dr. Luna
Mainor with Oromaxillofacial surgery and his team will see you in the emergency department there to intervene upon your tooth abscess.
Referrals:
Fredo Kirkpatrick DMD [Non-Admitting Privileges, Oral Surgery]
Referral Note: Call office today, schedule appointment for tomorrow with Dr. Hayward
Noy Aquino PA-C [Family Provider, Internal Medicine]
Additional Discharge Medication Instructions: Prescription for Augmentin was sent to your pharmacy. This antibiotic may be needed following the oral maxillofacial surgery team's intervention on your tooth abscess
Prescriptions:
New
amoxicillin-pot clavulanate 875-125 mg tablet
1 tab PO Q12H 7 Days Qty: 14 0RF
Continued
carvedilol 12.5 mg Tablet
12.5 mg PO BID
Lumigan 0.01 % Drops
1 drp BOTH EYES DAILY
abiraterone 250 mg tablet
500 mg PO DAILY
Eliquis 5 mg Tablet
5 mg PO BID
furosemide 20 mg tablet
20 mg PO DAILY
dapagliflozin propanediol 10 mg tablet
10 mg PO DAILY
aspirin 81 mg tablet,chewable
81 mg PO DAILY
rosuvastatin 20 mg Tablet
20 mg PO QPM 30 Days Qty: 30 0RF
ergocalciferol (vitamin D2) 50 mcg (2,000 unit) tablet
50 mcg PO DAILY 30 Days Qty: 30 0RF
valsartan 40 mg tablet
40 mg PO DAILY Qty: 30 0RF
Discharge Orders:
Discharge Patient (As Directed); Ordered 03/28/25
Ordered By: Abraham Salazar
Discharge Date and Time
Discharge Date/Time: 03/28/25 15:32
Print Language: ECUADOREAN
== END 2025-03-28 15:32 | disposition home health service (06) ==
LOC: 3 WEST ACU 04:15
PROVIDERS: ADMITTING PHYSICIAN Internal Medicine; ATTENDING PHYSICIAN Internal Medicine; EMERGENCY PHYSICIAN Emergency Medicine; FAMILY PHYSICIAN Physician Assistant Medical
DX: L03.211 Cellulitis of face (principal); K04.7 Periapical abscess without sinus; R51.9 Headache, unspecified; I48.21 Permanent atrial fibrillation; M54.16 Radiculopathy, lumbar region; G89.29 Other chronic pain; I50.22 Chronic systolic (congestive) heart failure; E78.00 Pure hypercholesterolemia, unspecified; G31.9 Degenerative disease of nervous system, unspecified; I13.0 Hypertensive heart and chronic kidney disease with heart failure and stage 1 through stage 4 chronic kidney disease, or unspecified chronic kidney disease; E11.22 Type 2 diabetes mellitus with diabetic chronic kidney disease; N18.2 Chronic kidney disease, stage 2 (mild); I25.10 Atherosclerotic heart disease of native coronary artery without angina pectoris; E11.42 Type 2 diabetes mellitus with diabetic polyneuropathy; S09.90XA Unspecified injury of head, initial encounter; E43 Unspecified severe protein-calorie malnutrition; E55.9 Vitamin D deficiency, unspecified; W01.10XA Fall on same level from slipping, tripping and stumbling with subsequent striking against unspecified object, initial encounter; Y93.9 Activity, unspecified; Y92.9 Unspecified place or not applicable; Z79.01 Long term (current) use of anticoagulants; Z79.899 Other long term (current) drug therapy; Z86.73 Personal history of transient ischemic attack (TIA), and cerebral infarction without residual deficits; Z85.46 Personal history of malignant neoplasm of prostate; Z95.810 Presence of automatic (implantable) cardiac defibrillator; Z88.8 Allergy status to other drugs, medicaments and biological substances; Z88.6 Allergy status to analgesic agent; Z91.012 Allergy to eggs; Z60.2 Problems related to living alone; Z68.26 Body mass index [BMI] 26.0-26.9, adult; Z79.84 Long term (current) use of oral hypoglycemic drugs; N40.0 Benign prostatic hyperplasia without lower urinary tract symptoms
CPT/HCPCS: 70450; 70487; 80048; 82962; 85025; 85027; 85652; 86140; 87070; 99285; G0378; Q9967

== ENCOUNTER 2025-03-29 15:22 | Emergency (ER) | payer MEDICARE, OTHER, SELFPAY ==
[2025-03-29 15:49] LABS: Hematocrit 40.8 % (39.0-52.0); Hemoglobin 13.7 g/dL (13.0-18.0); Mean Corp Hgb Conc. 33.6 g/dL (33.0-37.0); Mean Corpuscular Volume 91.3 fL (80.0-94.0); Nucleated Red Blood Cells % 0 % (-); Platelet Count 140 10^3/uL (130-400); Red Cell Dist. Width 14.8 % (11.5-14.5)
[2025-03-29 16:09] LABS: ALT (SGPT) 20 U/L (0-50); AST (SGOT) 35 U/L (17-59); Albumin 3.1 g/dl (3.5-5.0); Alkaline Phosphatase 80 U/L (38-126); Blood Urea Nitrogen 19 mg/dl (9-20); Calcium 8.1 mg/dl (8.4-10.2); Carbon Dioxide 27 mmol/L (22-30); Chloride 103 mmol/L (98-107); Glucose 102 mg/dl (70-99); Potassium 4.2 mmol/L (3.5-5.1); Sodium 134 mmol/L (135-145); Total Protein 5.5 g/dl (6.3-8.2); eGFR > 60.00
[2025-03-29 17:07] VITALS: BP 129/63
[2025-03-29] MEDS: NSS 1000 IV (17:08)
--- NOTE | 2025-03-29 17:22 | ED.GENMED ---
History of Present Illness
General
Chief Complaint: Fainting Sensation
Time Seen by Provider: 03/29/25 16:14
History of Present Illness
History of Present Illness:
79-year-old male with multiple comorbidities including CAD, hypertension, diabetes,, A-fib on Eliquis, CVA, BPH presenting to the emergency department for feeling faint. Patient reports this morning when he got up, he was feeling lightheaded like
he was going to pass out. Denies any syncopal episodes. Reports that this morning he did have some coffee and some toast. However yesterday he had been admitted to the hospital for some swelling in his mouth with concern for dental abscess.
Patient had been transferred to [place] and had an incision and drainage late last night, discharged home. He reports that he did not eat last night. Additionally, patient had been admitted to the hospital from 03/07 to 03/15 chest pain, had
catheterization, found to have some occlusions, however medical management pursued. Denies any chest pain or difficulty breathing. Denies fever. Denies weakness or numbness to his extremities. Also notes a fall last week with some healing skin
tears to the left lower extremity. Denies additional acute medical complaints
Past History
Past History
ED Past Medical History: Arrthythmia (Atrial fibrillation), Cancer (Prostate), CVA (Hemorrhagic), HTN, Hypercholesterolemia and Other (Chronic back pain/lumbar radiculopathy, polyneuropathy, gait disorder)
ED Past Surgical History: Other (Ventricular shunt, cataract, prostate, pacemaker and AICD)
Patient has exhibited threatening behavior?: No
PSI?: No
Social History
Tobacco: Non-smoker
Alcohol: None
Personal:
Living: with family
Employment: Employed
Family History
Family History: Other (Noncontributory)
Phy Exam
Physical Exam
Physical Exam:
General: Well-appearing, no clinical signs of dehydration, nontoxic and in no acute distress
HEENT: protecting airway, no significant oropharyngeal swelling. No bleeding to the mouth status post incision and drainage
Neck: appears supple
CV: Normal heart rate, regular rhythm, no evidence of cyanosis
Resp: No accessory muscle use, no increased work of breathing, lungs clear to auscultation bilaterally
Abd: Soft and non-distended, no tenderness to palpation, normal bowel sounds
Extremities: No deformities, no swelling, skin tears to left haley, no erythema or warmth
Neuro: alert, no focal neurologic deficit
: deferred
Rectal: deferred
Psych: Normal affect
Skin: Intact
Course
Orders/Labs/Results
Orders:
Orders
03/29/25 15:28
Electrocardiogram (*1) Urgent
Reason for Study: Fatigue / Weakness
EKG- Treatment ONCE
03/29/25 15:40
Complete Blood Count/With Diff Urgent
Comprehensive Metabolic Panel Urgent
03/29/25 16:56
Orthostatic VS- Treatment ONCE
03/29/25 17:05
0.9% Sodium Chloride 1000 ml [Nss] 1,000 ml IV BOLUS
Abnormal Lab Results
03/29/25
15:40
WBC 4.0 L 10^3/uL
(4.8-10.8)
RBC 4.47 L 10^6/uL
(4.70-6.10)
RDW 14.8 H %
(11.5-14.5)
MPV 12.1 H fL
(7.4-10.4)
Absolute Lymphs (auto) 0.7 L 10^3/uL
(1.2-3.4)
Lymphocytes % 18.1 L %
(20.5-51.1)
Sodium 134 L mmol/L
(135-145)
Glucose 102 H mg/dl
(70-99)
Calcium 8.1 L mg/dl
(8.4-10.2)
Total Protein 5.5 L g/dl
(6.3-8.2)
Albumin 3.1 L g/dl
(3.5-5.0)
03/29/25 15:40
03/29/25 15:40
Vital Signs
Initial and Last Documented VS:
Initial Vital Signs
Pulse Resp BP Pulse Ox
86 16 129/63 98
03/29/25 17:07 03/29/25 17:07 03/29/25 17:07 03/29/25 17:07
Last Documented Vital Signs
Pulse Resp BP Pulse Ox
87 19 124/78 91
03/29/25 19:10 03/29/25 19:10 03/29/25 19:10 03/29/25 19:00
MDM/Problems Addressed
MDM/Problems Addressed:
79-year-old male with multiple comorbidities including CAD, hypertension, diabetes,, A-fib on Eliquis, CVA, BPH presenting for feeling faint. Vital signs on arrival are normal.
On exam patient is resting comfortably, no acute distress or discomfort. EKG obtained on arrival, T wave abnormalities, however without significant change from prior. Patient is in A-fib, however known to him. Patient is afebrile, nontoxic.
Without concern for systemic infection. Status post recent incision and drainage with no significant swelling to the face, no trismus, or significant concern for residual infection. Patient is supposed to start amoxicillin, has not yet started it.
No focal neurologic deficits with lower suspicion for central neurologic process. Ultimately suspect that patient symptoms are from deconditioning. Patient with multiple recent hospital visits. He did not get home from the hospital until last
evening, lack of sleep, poor nutrition. No vertiginous symptoms. Will treat with IV fluids and obtain orthostatics.
19:20 - Patient's labs are unremarkable. Mild hypocalcemia which patient has had in the past. Otherwise stable electrolytes. Stable vital signs. Negative orthostatics. Feel stable for discharge with continued outpatient supportive therapy.
Return precautions discussed and patient verbalized understanding
*Pulse Oximetry
Patient hypoxic: no
*EKG
Interpreted by ED Provider?: Yes
EKG Intrepretation Date: 03/29/25
EKG Intrepretation Time: 17:26
Interpretation: abnormal
Comparison EKG: no changes (03/17/25)
Heart Rate: 71
Rate: normal
Rhythm: a-fib and PVC's
[place]: normal axis
QRS Pattern: left vent hypertrophy
Ischemia: non-specific ST changes
*Critical Care Note
Total Time (30-74mins, 75-104mins- exclusive of procedures): Not Applicable
ED Attending Note
-
Portions of this chart may have been created with voice recognition software.� Occasional wrong word or��sound alike� substitutions may have occurred due to the inherent limitations of voice recognition software.
Discharge Plan
Departure
Prescriptions:
No Action
carvedilol 12.5 mg Tablet
12.5 mg PO BID
Lumigan 0.01 % Drops
1 drp BOTH EYES DAILY
abiraterone 250 mg tablet
500 mg PO DAILY
Eliquis 5 mg Tablet
5 mg PO BID
furosemide 20 mg tablet
20 mg PO DAILY
dapagliflozin propanediol 10 mg tablet
10 mg PO DAILY
aspirin 81 mg tablet,chewable
81 mg PO DAILY
rosuvastatin 20 mg Tablet
20 mg PO QPM 30 Days Qty: 30 0RF
ergocalciferol (vitamin D2) 50 mcg (2,000 unit) tablet
50 mcg PO DAILY 30 Days Qty: 30 0RF
valsartan 40 mg tablet
40 mg PO DAILY Qty: 30 0RF
amoxicillin-pot clavulanate 875-125 mg tablet
1 tab PO Q12H 7 Days Qty: 14 0RF
Referrals:
Noy Aquino PA-C [Family Provider, Internal Medicine]
Interventions
Interventions:
*Risk Screen - Suicide Last Done: 03/29/25 15:28
*General Assessment Last Done: 03/29/25 15:30
*Neglect/Abuse Screening Last Done: 03/29/25 15:28
*ED- Fall Risk Assessment Last Done: 03/29/25 15:29
*ED COVID-19 Vaccine History Last Done: 03/29/25 18:53
ED- Cardiac Assessment Last Done: 03/29/25 18:53
ED- Neurological Assessment Last Done: 03/29/25 18:53
Discharge Date and Time
Print Language: [id number]
[2025-03-29 19:00] VITALS: BP 115/60
[2025-03-29 19:07] VITALS: BP 128/65
[2025-03-29 19:09] VITALS: BP 115/60; BP 124/78; BP 128/65; PULSE 79; PULSE 90; PULSE 98
[2025-03-29 19:10] VITALS: BP 124/78
[2025-03-29 19:58] VITALS: BP 118/75
== END 2025-03-29 20:00 | disposition home or self-care (01) ==
LOC: EMR 15:22
PROVIDERS: Emergency Medicine; EMERGENCY PHYSICIAN Student in an Organized Health Care Education/Training Program; FAMILY PHYSICIAN Physician Assistant Medical
DX: R55 Syncope and collapse (principal); I25.10 Atherosclerotic heart disease of native coronary artery without angina pectoris; I10 Essential (primary) hypertension; I48.91 Unspecified atrial fibrillation; N40.0 Benign prostatic hyperplasia without lower urinary tract symptoms; E11.42 Type 2 diabetes mellitus with diabetic polyneuropathy; E78.00 Pure hypercholesterolemia, unspecified; I49.3 Ventricular premature depolarization; Z79.01 Long term (current) use of anticoagulants; Z86.73 Personal history of transient ischemic attack (TIA), and cerebral infarction without residual deficits
CPT/HCPCS: 99283; 96360; 80053; 85025; 93005

== ENCOUNTER 2025-03-31 18:42 | Emergency (ER) | payer MEDICARE, OTHER, SELFPAY ==
[2025-03-31] VITALS (13 sets, daily range): BP systolic 101–127; BP diastolic 56–76; BMI 27.5
--- NOTE | 2025-03-31 19:33 | ED.MUSCINJ ---
HPI-Injury
General
Chief Complaint: Gait Dysfunction
Source: patient
Exam Limitations: none
Time Seen by Provider: 03/31/25 19:13
History of Present Illness-Injury
Initial Injury comments:
79-year-old male on Eliquis for history of A-fib, cardiomyopathy, CHF presents for reevaluation with ongoing weakness. He was here 2 days ago and thought to have generalized deconditioning from multiple recent hospitalizations. He continues to
fall. He is very weak. Is having trouble transferring from the bed to the wheelchair. Paramedics had come to his house twice today for lift assist. He was recently transferred to [facility] for incision and drainage of a dental
abscess. His mouth is feeling better however he notes persistent swelling and redness to the left leg.
Past History
Past History
ED Past Medical History: Arrthythmia (Atrial fibrillation), Cancer (Prostate), CVA (Hemorrhagic), HTN, Hypercholesterolemia and Other (Chronic back pain/lumbar radiculopathy, polyneuropathy, gait disorder)
ED Past Surgical History: Other (Ventricular shunt, cataract, prostate, pacemaker and AICD)
Patient has exhibited threatening behavior?: No
PSI?: No
Social History
Tobacco: Non-smoker
Alcohol: None
Personal:
Living: with family
Employment: Employed
Family History
Family History: Other (Noncontributory)
Phy Exam
Physical Exam
Physical Exam:
General: Well-appearing male no acute respiratory distress
HEENT normocephalic atraumatic no obvious facial swelling trismus or drooling
Heart: Irregular rate and rhythm
Lungs: No obvious wheeze
Abdomen is soft nontender nondistended
Extremities: No cyanosis or edema
Injury Course
Orders/Labs/Results
Orders:
Orders
03/31/25 19:32
CT Head W/o Iv Contrast Urgent
Comment:
Reason For Exam: fall
03/31/25 19:34
Complete Blood Count/With Diff Urgent
Urinalysis Urgent
Date Specimen was Collected: 03/31/25
Time Specimen was Collected: 18:50
Urine Microscopic Urgent
Date Specimen was Collected: 03/31/25
Time Specimen was Collected: 18:50
03/31/25 19:35
Comprehensive Metabolic Panel Urgent
03/31/25 19:37
CR Chest - 2 Views Urgent
Comment:
Reason For Exam: weakness
03/31/25 20:01
CT Cervical Spine W/o Iv Contr Urgent
Comment:
Reason For Exam: falls
03/31/25 20:13
NT-proBNP Urgent
03/31/25 20:14
Prothrombin Complex(Pcc),Human [Kcentra] 2,235 unit Empty Viaflex Container 100 ml [Viaflex Empty Container] 0 ml IV NOW
Does patient have a dx of serious acute active bleeding?: Yes
Does patient have prior history of HIT?: No
03/31/25 20:21
Prothrombin Complex(Pcc),Human [Kcentra] 2,225 unit Empty Viaflex Container 100 ml [Viaflex Empty Container] 80 ml IV NOW
03/31/25 20:22
Protime/PTT Urgent
03/31/25 20:28
Prothrombin Complex(Pcc),Human [Kcentra] 2,235 unit Empty Viaflex Container 100 ml [Viaflex Empty Container] 80 ml IV NOW
Abnormal Lab Results
03/31/25 03/31/25 03/31/25
19:34 19:35 20:22
WBC 3.9 L 10^3/uL
(4.8-10.8)
RBC 4.15 L 10^6/uL
(4.70-6.10)
Hgb 12.4 L g/dL
(13.0-18.0)
Hct 38.0 L %
(39.0-52.0)
MCHC 32.6 L g/dL
(33.0-37.0)
RDW 14.8 H %
(11.5-14.5)
Plt Count 124 L 10^3/uL
(130-400)
MPV 11.8 H fL
(7.4-10.4)
Absolute Lymphs (auto) 0.9 L 10^3/uL
(1.2-3.4)
Monocytes % 9.6 H %
(1.7-9.3)
PT 17.6 H Sec
(11.4-14.6)
APTT 39.0 H Sec
(23.4-35.0)
BUN 21 H mg/dl
(9-20)
Glucose 111 H mg/dl
(70-99)
Total Protein 5.7 L g/dl
(6.3-8.2)
Albumin 3.1 L g/dl
(3.5-5.0)
Urine Ketones 2+ A
(Negative)
Urine Occult Blood 1+ A
(Negative)
Urine Bacteria Few A
(Negative)
Urine Albumin 1+ A
(Neg - Trace)
03/31/25 19:34
03/31/25 19:35
MDM/Problems Addressed
Differential Diagnosis Includes:
Patient with multiple falls and weakness. At this time living at home is unsafe. He lives by himself. Will check basic labs urinalysis chest x-ray and CT of the head secondary to the fall. Will likely need placement and work with case management
and physical therapy
*Pulse Oximetry
SaO2: 95
Oxygen Mode of Delivery: Room air
Patient hypoxic: no
*Critical Care Note
Total Time (30-74mins, 75-104mins- exclusive of procedures): Not Applicable
Update Note
Update Note:
CT of head is positive for 2 separate areas of intraparenchymal hemorrhage. One is located in the right vertex and 1 is in the left parietal brain. Patient remains neurologically intact. Discussed findings with emergency room attending as well as
neurosurgery, Dr. Daniela Quach. Will order Kcentra to reverse the Eliquis based off recommendations from neurosurgery. [facility] to accept the patient in transfer. Dr. Garcia is excepting.
ED Attending Note
-
Portions of this chart may have been created with voice recognition software.� Occasional wrong word or��sound alike� substitutions may have occurred due to the inherent limitations of voice recognition software.
Discharge Plan
Departure
Patient Disposition: Acute Care Hospital
Date of Disposition: 03/31/25
Time of Disposition: 20:41
Patient with high blood pressure during this ER visit?: No
Discharge Problem:
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
Prescriptions:
No Action
carvedilol 12.5 mg Tablet
12.5 mg PO BID
Lumigan 0.01 % Drops
1 drp BOTH EYES DAILY
abiraterone 250 mg tablet
500 mg PO DAILY
Eliquis 5 mg Tablet
5 mg PO BID
furosemide 20 mg tablet
20 mg PO DAILY
dapagliflozin propanediol 10 mg tablet
10 mg PO DAILY
aspirin 81 mg tablet,chewable
81 mg PO DAILY
rosuvastatin 20 mg Tablet
20 mg PO QPM 30 Days Qty: 30 0RF
ergocalciferol (vitamin D2) 50 mcg (2,000 unit) tablet
50 mcg PO DAILY 30 Days Qty: 30 0RF
valsartan 40 mg tablet
40 mg PO DAILY Qty: 30 0RF
amoxicillin-pot clavulanate 875-125 mg tablet
1 tab PO Q12H 7 Days Qty: 14 0RF
Referrals:
Liv Bond CRNP [Family Provider, Internal Medicine]
Hospital Transfer
Other hospital: [facility]
I certify that the patient requires transfer: Yes
Discussed case with accepting physician: Dr. Garcia
Reason for transfer: higher level of care and availability of service
Interventions
Interventions:
*Risk Screen - Suicide Last Done: 03/31/25 18:44
*General Assessment Last Done: 03/31/25 19:15
*Neglect/Abuse Screening Last Done: 03/31/25 18:44
*ED- Fall Risk Assessment Last Done: 03/31/25 19:15
*ED COVID-19 Vaccine History Last Done: 03/31/25 23:06
*Nursing Disposition Last Done: 04/01/25 00:26
ED-Psychological Assessment Last Done: 03/31/25 19:15
ED- Neurological Assessment Last Done: 04/01/25 00:00
ED-Musculoskeletal Assessment Last Done: 03/31/25 19:15
ED Swallowing Screen Last Done: 03/31/25 19:15
Discharge Date and Time
Discharge Date/Time: 04/01/25 00:28
Print Language: MONGOLIAN
[2025-03-31 20:06] LABS: ALT (SGPT) 19 U/L (0-50); AST (SGOT) 27 U/L (17-59); Albumin 3.1 g/dl (3.5-5.0); Alkaline Phosphatase 65 U/L (38-126); Blood Urea Nitrogen 21 mg/dl (9-20); Calcium 8.5 mg/dl (8.4-10.2); Carbon Dioxide 29 mmol/L (22-30); Chloride 104 mmol/L (98-107); Estimated Creatinine Clearance 70 ml/min; Glucose 111 mg/dl (70-99); Potassium 4.1 mmol/L (3.5-5.1); Sodium 136 mmol/L (135-145); Total Protein 5.7 g/dl (6.3-8.2); eGFR > 60.00
[2025-03-31 20:10] LABS: Hematocrit 38.0 % (39.0-52.0); Hemoglobin 12.4 g/dL (13.0-18.0); Mean Corp Hgb Conc. 32.6 g/dL (33.0-37.0); Mean Corpuscular Volume 91.6 fL (80.0-94.0); Nucleated Red Blood Cells % 0 % (-); Platelet Count 124 10^3/uL (130-400); Red Cell Dist. Width 14.8 % (11.5-14.5)
[2025-03-31 20:29] LABS: Urine Character Clear (Clear)
[2025-03-31 20:39] LABS: INR 1.42; PT 17.6 Sec (11.4-14.6)
[2025-03-31 20:40] LABS: APTT 39.0 Sec (23.4-35.0)
[2025-03-31] MEDS: KCENTRA 80 UNIT IV (20:43)
[2025-03-31 20:57] LABS: Urine Red Blood Cell 0-2 /HPF (0-2); Urine Squamous Cell 0-2 /LPF (Few); Urine White Cell 0-2 /HPF (0-5)
[2025-04-01] VITALS: BP 118/61
== END 2025-04-01 00:28 | disposition short-term general hospital (02) ==
LOC: EMR 18:42
PROVIDERS: Physician Assistant; EMERGENCY PHYSICIAN Emergency Medicine; FAMILY PHYSICIAN Nurse Practitioner Family
DX: S06.6XAA Traumatic subarachnoid hemorrhage with loss of consciousness status unknown, initial encounter (principal); W19.XXXA Unspecified fall, initial encounter; Z91.81 History of falling; E78.00 Pure hypercholesterolemia, unspecified; I11.0 Hypertensive heart disease with heart failure; I50.9 Heart failure, unspecified; I48.91 Unspecified atrial fibrillation; G89.29 Other chronic pain; I42.9 Cardiomyopathy, unspecified; Z79.01 Long term (current) use of anticoagulants; Z86.73 Personal history of transient ischemic attack (TIA), and cerebral infarction without residual deficits; Z60.2 Problems related to living alone
CPT/HCPCS: 99285; 96374; 70450; 71046; 72125; 80053; 81003; 81015; 83880; 85025; 85610; 85730; J7168